=== PATIENT | male | born 1950 | race Caucasian/White ===

== ENCOUNTER 2018-04-14 08:15 | Outpatient (RCR) | payer MEDICARE, SELFPAY ==
--- NOTE | 2017-10-25 14:16 | PT.OIE ---
Current Diagnoses Disease of spinal cord, unspecified (10/25/17) Spinal stenosis, lumbar region with neurogenic claudication (10/25/17) Other biomechanical lesions of lumbar region (10/25/17) Unspecified abnormalities of gait and mobility (10/25/17) Provider Visit Care Team Role Provider Type La Keith MD Primary Care Provider Non-Staff Specialty: Physical Medicine and Rehab Address: [address] [place] [address] 8th [facility], [address], [place], [address] Email: Nemesio Carlisle MD Attending Provider Physician Specialty: Family Practice Address: [address] [place] [address], [address] Email: Physical Therapy Initial Evaluation PT-OP-A Visit Information Start: 10/25/17 07:27 Freq: Status: Active Protocol: Document 10/25/17 10:07 [facility] (Rec: 10/25/17 10:29 [facility] [id number]) Out-Patient Physical Therapy Visit Information Visit Information Visit Type Initial Evaluation Visit Note 1 visit Visit Start Time 09:07 Visit Stop Time 09:45 Total Visit Minutes 38 Visit Number 04/03 Number of BPM DEVELOPER Visits 0 PT-OP-B Current Condition Start: 10/25/17 07:27 Freq: Status: Active Protocol: Document 10/25/17 10:07 [facility] (Rec: 10/25/17 10:29 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 A ton of neurological tests were done on him until they found central canal stenosis in his neck. Pt had ACDF C4-7 and laminectomies of C5-7. This slowed the progress of the weakness of LEs & gait difficulties. Pt reports about a couple months ago, he started to have LBP with pain down post thighs and calves. Reports he started to have an inc in difficulty of walking. He has pain with standing and walking and pain is getting worse with decreasing time pt can spend up before pain starts. He sits down to relieve pain and does not allow pain to get over 5/10. It takes a little while of sitting to have pain relief. Reports no other treatment has been done and PT is first treatment approach. MD referal states that if PT increases pain, pt is to return to MD & stop PT. Prior Treatments and Tests Pt had MRI of cervical, thoracic & lumbar vertebra. Reports are in chart with evidence of central canal narrowing in cervical & lumbar region. Treatment Goals Patient/Caregiver Goals To be able to walk PT-OP-C Subjective Start: 10/25/17 07:27 Freq: Status: Active Protocol: Document 10/25/17 10:07 [facility] (Rec: 10/25/17 10:29 [facility] [id number]) Patient Questionnaires Oswestry Low Back Index Oswestry Score 26 Oswestry Impairment 20 to 39% Impaired (Score 20- 39) OP-PT Pain Assessment Location Bilateral Lower Posterior Back Pain Location Details LB down post thighs & calves Intensity 5 Scale Used Numeric (1 - 10) Frequency Intermittent Pain Aggravating Factors Activity Standing Walking Pain Alleviating Factors Sitting Rest PT-OP-F Manual Assessment Start: 10/25/17 07:27 Freq: Status: Active Protocol: Document 10/25/17 10:07 [facility] (Rec: 10/25/17 10:29 [facility] [id number]) Manual Assessments Soft Tissue Assessment Soft Tissue Mobility Assessment L>R QL tightness, B ES & HS tightness & R>L glute tightness Joint Mobility Assessment Joint Mobility Assessment With knee bend, pt has IR of R femur & ER of L with tibia neutral position and L ER. Pt has elevated R iliac crest with equal height greater trochanters. PT-OP-G Mobility & Gait Start: 10/25/17 07:27 Freq: Status: Active Protocol: Document 10/25/17 10:07 [facility] (Rec: 10/25/17 10:29 [facility] [id number]) OP Gait Assessment Comments Gait Comments Pt amb without AD with mild scissoring, knee hyperext and lateral leaning. Pt reports 1 fall in past year. PT-OP-K Range of Motion Start: 10/25/17 07:27 Freq: Status: Active Protocol: Document 10/25/17 10:07 [facility] (Rec: 10/25/17 10:29 [facility] [id number]) Lumbar Spine Range of Motion Lumbar Spine Active Degrees Testing Position standing Flexion 65 Extension 15 Lateral Flexion Left 25 Lateral Flexion Right 20 Comments tight with flex; about 75% L rotation & 60% R PT-OP-L Special Tests Start: 10/25/17 07:27 Freq: Status: Active Protocol: Document 10/25/17 10:07 [facility] (Rec: 10/25/17 10:29 [facility] [id number]) Special Tests Lumbar Spine Special Tests Straight Leg Raise Test Results neg B Slump Test Results postive R, Neg L PT-OP-M Strength Start: 10/25/17 07:27 Freq: Status: Active Protocol: Document 10/25/17 11:30 [facility] (Rec: 10/25/17 11:36 [facility] [id number]) Hip Strength Hip Manual Muscle Testing Right Flexion (L2) 4+ Good+ Extension (S1) 4 Good Abduction 4 Good External Rotation 4 Good Internal Rotation 4 Good Left Flexion (L2) 4+ Good+ Extension (S1) 4 Good Abduction 4 Good External Rotation 4 Good Internal Rotation 4 Good Knee Strength Knee Manual Muscle Testing Right Flexion (S2) 5 Normal Extension (L3) 5 Normal Left Flexion (S2) 5 Normal Extension (L3) 5 Normal Ankle/Foot Strength Ankle and Foot Manual Muscle Testing Right Dorsiflexion (L4) 4 Good Left Dorsiflexion (L4) 4 Good PT-OP-Q Treatments Start: 10/25/17 07:27 Freq: Status: Active Protocol: Document 10/25/17 10:07 [facility] (Rec: 10/25/17 10:29 [facility] [email or web address]) Therapeutic Exercises Supine Exercises 2 Supine Exercise Name bridging Side bilateral Reps/Minutes 10 1 Supine Exercise Name single leg abdominal series flex & diagonal Side bilateral Reps/Minutes 30 sec ea Sidelying Exercises 1 Sidelying Exercise Name abd Side bilateral Reps/Minutes 10 Self-Care/Home Management Treatment Activities Self-Care/Home Management Activities edu to try ice and if that does not help then try heat for pain relief PT-OP-T Assessment and Plan Start: 10/25/17 07:27 Freq: Status: Active Protocol: Document 10/25/17 10:07 [facility] (Rec: 10/25/17 11:36 [facility] [id number]) Physical Therapy Assessment Rehab Potential Rehabilitation Potential Good Evaluation Complexity Number of Personal Factors/Comorbidities 1-2 Number of Body Systems Impaired 4 or More Clinical Presentation at Evaluation Evolving Impairments Impairments Activity Tolerance Balance Coordination Functional Activities Functional Mobility Gait Pain Soft Tissue Mobility Strength Goals Three Impairment pain Wood Sash And Frame Carpenter Goal (LTG) Pt will report no more than 2/ 10 LBP during the day. LTG Duration 12/25/17 Two Impairment muscle tightness Wood Sash And Frame Carpenter Goal (LTG) Pt will have no tenderness to palpation in LB region LTG Duration 12/25/17 One Impairment Strength Short Term Goal (STG) Pt will be indep with HEP STG Duration 11/25/17 Prison Goal (LTG) Pt will have 5/5 MMT for BLEs to allow improvement in movement to allow greater time on feet before pain. LTG Duration 12/25/17 Assessment Summary Assessment Pt presents with significant gait deviations d/t cervical central canal stenosis. He has LBP d/t lumbar central canal stenosis, DDD, and facet OA. Physical Therapy Plan Frequency and Duration Frequency of Treatment 2x/Week Duration of Treatment 2 months Plan of Care Start Date 10/25/17 Plan of Care End Date 12/25/17 Therapeutic Interventions Therapeutic Interventions Aquatic Therapy Balance Training Gait Training Home Exercise Program Joint Mobilizations Manual Therapy Neuromuscular Re-education Soft Tissue Mobilization Taping Therapeutic Exercises Modalities Cold Pack/Ice Massage Electric Stimulation Hot Packs Ultrasound Next Visit Focus/Plan Next Note Type Treatment Note Next Visit Plan Advance core & LE strength: reverese clamshells, clamshells, squats, supine core
--- NOTE | 2017-10-25 14:16 | PT.OPPOC ---
Current Diagnoses Disease of spinal cord, unspecified (10/25/17) Spinal stenosis, lumbar region with neurogenic claudication (10/25/17) Other biomechanical lesions of lumbar region (10/25/17) Unspecified abnormalities of gait and mobility (10/25/17) Provider Visit Care Team Role Provider Type La Keith MD Primary Care Provider Non-Staff Specialty: Physical Medicine and Rehab Address: [address] [place] [address] 8th [facility], [address], [address] Email: Nemesio Carlisle MD Attending Provider Physician Specialty: Family Practice Address: [address] [place] [address], [id number] Email: Plan Of Care PT-OP-T Assessment and Plan Start: 10/25/17 07:27 Freq: Status: Active Protocol: Document 10/25/17 10:07 [facility] (Rec: 10/25/17 11:36 [facility] [id number]) Physical Therapy Assessment Rehab Potential Rehabilitation Potential Good Evaluation Complexity Number of Personal Factors/Comorbidities 1-2 Number of Body Systems Impaired 4 or More Clinical Presentation at Evaluation Evolving Impairments Impairments Activity Tolerance Balance Coordination Functional Activities Functional Mobility Gait Pain Soft Tissue Mobility Strength Goals Three Impairment pain Heatset Winder Operator Goal (LTG) Pt will report no more than 2/ 10 LBP during the day. LTG Duration 12/25/17 Two Impairment muscle tightness Skilled Nursing Goal (LTG) Pt will have no tenderness to palpation in LB region LTG Duration 12/25/17 One Impairment Strength Short Term Goal (STG) Pt will be indep with HEP STG Duration 11/25/17 Skilled Nursing Goal (LTG) Pt will have 5/5 MMT for BLEs to allow improvement in movement to allow greater time on feet before pain. LTG Duration 12/25/17 Assessment Summary Assessment Pt presents with significant gait deviations d/t cervical central canal stenosis. He has LBP d/t lumbar central canal stenosis, DDD, and facet OA. Physical Therapy Plan Frequency and Duration Frequency of Treatment 2x/Week Duration of Treatment 2 months Plan of Care Start Date 10/25/17 Plan of Care End Date 12/25/17 Therapeutic Interventions Therapeutic Interventions Aquatic Therapy Balance Training Gait Training Home Exercise Program Joint Mobilizations Manual Therapy Neuromuscular Re-education Soft Tissue Mobilization Taping Therapeutic Exercises Modalities Cold Pack/Ice Massage Electric Stimulation Hot Packs Ultrasound Next Visit Focus/Plan Next Note Type Treatment Note Next Visit Plan Advance core & LE strength: reverese clamshells, clamshells, squats, supine core Plan of Care Dates Plan of Care Start Date 10/25/17 Plan of Care End Date 12/25/17 Please Sign and Return: I have reviewed this Plan of Care and certify that the skilled therapy services above are required to meet the patient?s needs. Physician Signature Date Printed Name and Credentials Clinical Instructor Signature Printed Name and Credentials
--- NOTE | 2017-12-05 17:31 | PT.OTN ---
Current Diagnoses Disease of spinal cord, unspecified (12/05/17) Spinal stenosis, lumbar region with neurogenic claudication (12/05/17) Other biomechanical lesions of lumbar region (12/05/17) Unspecified abnormalities of gait and mobility (12/05/17) Physical Therapy Treatment Note PT-OP-A Visit Information Start: 10/25/17 07:27 Freq: Status: Active Protocol: Document 10/25/17 10:07 [facility] (Rec: 10/25/17 10:29 [facility] [id number]) Out-Patient Physical Therapy Visit Information Visit Information Visit Type Initial Evaluation Visit Note 1 visit Visit Start Time 09:07 Visit Stop Time 09:45 Total Visit Minutes 38 Visit Number 04/03 Number of OPERATING ROOM SCHEDULER Visits 0 PT-OP-B Current Condition Start: 10/25/17 07:27 Freq: Status: Active Protocol: Document 12/05/17 11:21 [facility] (Rec: 12/05/17 17:31 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 A ton of neurological tests were done on him until they found central canal stenosis in his neck. Pt had ACDF C4-7 and laminectomies of C5-7. This slowed the progress of the weakness of LEs & gait difficulties. Pt reports about a couple months ago, he started to have LBP with pain down post thighs and calves. Reports he started to have an inc in difficulty of walking. He has pain with standing and walking and pain is getting worse with decreasing time pt can spend up before pain starts. He sits down to relieve pain and does not allow pain to get over 5/10. It takes a little while of sitting to have pain relief. Reports no other treatment has been done and PT is first treatment approach. MD referal states that if PT increases pain, pt is to return to MD & stop PT. UPDATE* -pt had L4-5 lami 11/04 and was cleared to start PT. Thinks he may have dec foot drop since surgery and back pain has improved but feels tight still. No lifting >10 lbs, limit twisting and bending Prior Treatments and Tests Pt had MRI of cervical, thoracic & lumbar vertebra. Reports are in chart with evidence of central canal narrowing in cervical & lumbar region. PT-OP-C Subjective Start: 10/25/17 07:27 Freq: Status: Active Protocol: Document 10/25/17 10:07 [facility] (Rec: 10/25/17 10:29 [facility] [id number]) Patient Questionnaires Oswestry Low Back Index Oswestry Score 26 Oswestry Impairment 20 to 39% Impaired (Score 20- 39) OP-PT Pain Assessment Location Bilateral Lower Posterior Back Pain Location Details LB down post thighs & calves Intensity 5 Scale Used Numeric (1 - 10) Frequency Intermittent Pain Aggravating Factors Activity Standing Walking Pain Alleviating Factors Sitting Rest PT-OP-F Manual Assessment Start: 10/25/17 07:27 Freq: Status: Active Protocol: Document 10/25/17 10:07 [facility] (Rec: 10/25/17 10:29 [facility] [id number]) Manual Assessments Soft Tissue Assessment Soft Tissue Mobility Assessment L>R QL tightness, B ES & HS tightness & R>L glute tightness Joint Mobility Assessment Joint Mobility Assessment With knee bend, pt has IR of R femur & ER of L with tibia neutral position and L ER. Pt has elevated R iliac crest with equal height greater trochanters. PT-OP-G Mobility & Gait Start: 10/25/17 07:27 Freq: Status: Active Protocol: Document 10/25/17 10:07 [facility] (Rec: 10/25/17 10:29 [facility] [id number]) OP Gait Assessment Comments Gait Comments Pt amb without AD with mild scissoring, knee hyperext and lateral leaning. Pt reports 1 fall in past year. PT-OP-K Range of Motion Start: 10/25/17 07:27 Freq: Status: Active Protocol: Document 10/25/17 10:07 [facility] (Rec: 10/25/17 10:29 [facility] [id number]) Lumbar Spine Range of Motion Lumbar Spine Active Degrees Testing Position standing Flexion 65 Extension 15 Lateral Flexion Left 25 Lateral Flexion Right 20 Comments tight with flex; about 75% L rotation & 60% R PT-OP-L Special Tests Start: 10/25/17 07:27 Freq: Status: Active Protocol: Document 10/25/17 10:07 [facility] (Rec: 10/25/17 10:29 [facility] [id number]) Special Tests Lumbar Spine Special Tests Straight Leg Raise Test Results neg B Slump Test Results postive R, Neg L PT-OP-M Strength Start: 10/25/17 07:27 Freq: Status: Active Protocol: Document 10/25/17 11:30 [facility] (Rec: 10/25/17 11:36 [facility] [id number]) Hip Strength Hip Manual Muscle Testing Right Flexion (L2) 4+ Good+ Extension (S1) 4 Good Abduction 4 Good External Rotation 4 Good Internal Rotation 4 Good Left Flexion (L2) 4+ Good+ Extension (S1) 4 Good Abduction 4 Good External Rotation 4 Good Internal Rotation 4 Good Knee Strength Knee Manual Muscle Testing Right Flexion (S2) 5 Normal Extension (L3) 5 Normal Left Flexion (S2) 5 Normal Extension (L3) 5 Normal Ankle/Foot Strength Ankle and Foot Manual Muscle Testing Right Dorsiflexion (L4) 4 Good Left Dorsiflexion (L4) 4 Good PT-OP-Q Treatments Start: 10/25/17 07:27 Freq: Status: Active Protocol: Document 12/05/17 11:21 [facility] (Rec: 12/05/17 12:05 [facility] [id number]) Therapeutic Exercises Supine Exercises 3 Supine Exercise Name marching to scissors Reps/Minutes 20 2 Supine Exercise Name bridging Side bilateral Reps/Minutes 10 Comments arms in air 1 Supine Exercise Name single leg abdominal series flex & diagonal Side bilateral Reps/Minutes 30 sec ea Sidelying Exercises 3 Sidelying Exercise Name reverse clamshells Equipment Used L1 Reps/Minutes 15 2 Sidelying Exercise Name clamshells Resistance L1 Reps/Minutes 15 1 Sidelying Exercise Name abd Side bilateral Reps/Minutes 10 Manual Therapy Treatment Soft Tissue Mobilization 1 Body Location lumbar region Mobilization Type Myofascial Release Intensity/Depth Superficial Body Position Prone PT-OP-R Modalities Start: 10/25/17 07:27 Freq: Status: Active Protocol: Document 12/05/17 11:21 [facility] (Rec: 12/05/17 17:28 [facility] [id number]) Hot Pack/Cold Pack Treatment Cold Pack Location lumbar Patient Position Prone Treatment Duration (minutes) 10 PT-OP-T Assessment and Plan Start: 10/25/17 07:27 Freq: Status: Active Protocol: Document 12/05/17 11:21 [facility] (Rec: 12/05/17 12:05 [facility] [id number]) Physical Therapy Assessment Impairments Impairments Activity Tolerance Balance Coordination Functional Activities Functional Mobility Gait Pain Soft Tissue Mobility Strength Goals Three Impairment pain Fdc Goal (LTG) Pt will report no more than 2/ 10 LBP during the day. LTG Duration 01/25/18 Two Impairment muscle tightness Distilling Department Supervisor Goal (LTG) Pt will have no tenderness to palpation in LB region LTG Duration 01/25/18 One Impairment Strength Short Term Goal (STG) Pt will be indep with HEP STG Duration 12/25/17 Fdc Goal (LTG) Pt will have 5/5 MMT for BLEs to allow improvement in movement to allow greater time on feet before pain. LTG Duration 01/25/18 Assessment Summary Assessment Pt is 1 month s/p laminectomy and has MD clearance to resume PT. Min cueing required for prior exercises. Good healing of scar with MF tigthenss in LB. Physical Therapy Plan Frequency and Duration Frequency of Treatment 2x/Week Duration of Treatment 2 months Plan of Care Start Date 10/25/17 Plan of Care End Date 12/25/17 Therapeutic Interventions Therapeutic Interventions Aquatic Therapy Balance Training Gait Training Home Exercise Program Joint Mobilizations Manual Therapy Neuromuscular Re-education Soft Tissue Mobilization Taping Therapeutic Exercises Modalities Cold Pack/Ice Massage Electric Stimulation Hot Packs Ultrasound Next Visit Focus/Plan Next Note Type Treatment Note Next Visit Plan seated on tball exercises
--- NOTE | 2017-12-05 17:32 | PT.OPPOC ---
Current Diagnoses Disease of spinal cord, unspecified (12/05/17) Spinal stenosis, lumbar region with neurogenic claudication (12/05/17) Other biomechanical lesions of lumbar region (12/05/17) Unspecified abnormalities of gait and mobility (12/05/17) Provider Visit Care Team Role Provider Type La Keith MD Primary Care Provider Non-Staff Specialty: Physical Medicine and Rehab Address: [address] [place] [address] [address] [facility], [address], [place], [address] Email: Nemesio Carlisle MD Attending Provider Physician Specialty: Family Practice Address: [address] [place] [address], [address] Email: Plan Of Care PT-OP-T Assessment and Plan Start: 10/25/17 07:27 Freq: Status: Active Protocol: Document 12/05/17 11:21 [facility] (Rec: 12/05/17 12:05 [facility] [id number]) Physical Therapy Assessment Impairments Impairments Activity Tolerance Balance Coordination Functional Activities Functional Mobility Gait Pain Soft Tissue Mobility Strength Goals Three Impairment pain Halfway Goal (LTG) Pt will report no more than 2/ 10 LBP during the day. LTG Duration 01/25/18 Two Impairment muscle tightness Psychometrist Goal (LTG) Pt will have no tenderness to palpation in LB region LTG Duration 01/25/18 One Impairment Strength Short Term Goal (STG) Pt will be indep with HEP STG Duration 12/25/17 Halfway Goal (LTG) Pt will have 5/5 MMT for BLEs to allow improvement in movement to allow greater time on feet before pain. LTG Duration 01/25/18 Assessment Summary Assessment Pt is 1 month s/p laminectomy and has MD clearance to resume PT. Min cueing required for prior exercises. Good healing of scar with MF tigthenss in LB. Physical Therapy Plan Frequency and Duration Frequency of Treatment 2x/Week Duration of Treatment 2 months Plan of Care Start Date 10/25/17 Plan of Care End Date 12/25/17 Therapeutic Interventions Therapeutic Interventions Aquatic Therapy Balance Training Gait Training Home Exercise Program Joint Mobilizations Manual Therapy Neuromuscular Re-education Soft Tissue Mobilization Taping Therapeutic Exercises Modalities Cold Pack/Ice Massage Electric Stimulation Hot Packs Ultrasound Next Visit Focus/Plan Next Note Type Treatment Note Next Visit Plan seated on tball exercises Plan of Care Dates Plan of Care Start Date 10/25/17 Plan of Care End Date 12/25/17 Please Sign and Return: I have reviewed this Plan of Care and certify that the skilled therapy services above are required to meet the patient?s needs. Physician Signature Date Printed Name and Credentials Clinical Instructor Signature Printed Name and Credentials
--- NOTE | 2017-12-10 10:28 | PT.OTN ---
Current Diagnoses Disease of spinal cord, unspecified (12/10/17) Spinal stenosis, lumbar region with neurogenic claudication (12/10/17) Other biomechanical lesions of lumbar region (12/10/17) Unspecified abnormalities of gait and mobility (12/10/17) Physical Therapy Treatment Note PT-OP-A Visit Information Start: 10/25/17 07:27 Freq: Status: Active Protocol: Document 12/10/17 09:46 [facility] (Rec: 12/10/17 10:27 [facility] [id number]) Out-Patient Physical Therapy Visit Information Visit Information Visit Type Treatment Note Visit Note 3 visits Visit Start Time 09:45 Visit Stop Time 10:40 Total Visit Minutes 55 Visit Number 2/10 Number of OUTREACH SPECIALIST Visits 0 PT-OP-B Current Condition Start: 10/25/17 07:27 Freq: Status: Active Protocol: Document 12/05/17 11:21 [facility] (Rec: 12/05/17 17:31 [facility] [id number]) Current Condition History of Current Condition Onset Date couple months ago Current Complaints LBP w/radicular pain into post LEs History of Current Condition 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 A ton of neurological tests were done on him until they found central canal stenosis in his neck. Pt had ACDF C4-7 and laminectomies of C5-7. This slowed the progress of the weakness of LEs & gait difficulties. Pt reports about a couple months ago, he started to have LBP with pain down post thighs and calves. Reports he started to have an inc in difficulty of walking. He has pain with standing and walking and pain is getting worse with decreasing time pt can spend up before pain starts. He sits down to relieve pain and does not allow pain to get over 5/10. It takes a little while of sitting to have pain relief. Reports no other treatment has been done and PT is first treatment approach. MD referal states that if PT increases pain, pt is to return to MD & stop PT. UPDATE* -pt had L4-5 lami 11/04 and was cleared to start PT. Thinks he may have dec foot drop since surgery and back pain has improved but feels tight still. No lifting >10 lbs, limit twisting and bending Prior Treatments and Tests Pt had MRI of cervical, thoracic & lumbar vertebra. Reports are in chart with evidence of central canal narrowing in cervical & lumbar region. PT-OP-C Subjective Start: 10/25/17 07:27 Freq: Status: Active Protocol: Document 12/10/17 09:46 [facility] (Rec: 12/10/17 10:26 [facility] [id number]) OP-PT Subjective Patient Comments Patient Comments Pt reports no back soreness after last session, just some leg soreness. PT-OP-F Manual Assessment Start: 10/25/17 07:27 Freq: Status: Active Protocol: Document 10/25/17 10:07 [facility] (Rec: 10/25/17 10:29 [facility] [id number]) Manual Assessments Soft Tissue Assessment Soft Tissue Mobility Assessment L>R QL tightness, B ES & HS tightness & R>L glute tightness Joint Mobility Assessment Joint Mobility Assessment With knee bend, pt has IR of R femur & ER of L with tibia neutral position and L ER. Pt has elevated R iliac crest with equal height greater trochanters. PT-OP-G Mobility & Gait Start: 10/25/17 07:27 Freq: Status: Active Protocol: Document 10/25/17 10:07 [facility] (Rec: 10/25/17 10:29 [facility] [id number]) OP Gait Assessment Comments Gait Comments Pt amb without AD with mild scissoring, knee hyperext and lateral leaning. Pt reports 1 fall in past year. PT-OP-K Range of Motion Start: 10/25/17 07:27 Freq: Status: Active Protocol: Document 10/25/17 10:07 [facility] (Rec: 10/25/17 10:29 [facility] [id number]) Lumbar Spine Range of Motion Lumbar Spine Active Degrees Testing Position standing Flexion 65 Extension 15 Lateral Flexion Left 25 Lateral Flexion Right 20 Comments tight with flex; about 75% L rotation & 60% R PT-OP-L Special Tests Start: 10/25/17 07:27 Freq: Status: Active Protocol: Document 10/25/17 10:07 [facility] (Rec: 10/25/17 10:29 [facility] [id number]) Special Tests Lumbar Spine Special Tests Straight Leg Raise Test Results neg B Slump Test Results postive R, Neg L PT-OP-M Strength Start: 10/25/17 07:27 Freq: Status: Active Protocol: Document 10/25/17 11:30 [facility] (Rec: 10/25/17 11:36 [facility] [email or web address]) Hip Strength Hip Manual Muscle Testing Right Flexion (L2) 4+ Good+ Extension (S1) 4 Good Abduction 4 Good External Rotation 4 Good Internal Rotation 4 Good Left Flexion (L2) 4+ Good+ Extension (S1) 4 Good Abduction 4 Good External Rotation 4 Good Internal Rotation 4 Good Knee Strength Knee Manual Muscle Testing Right Flexion (S2) 5 Normal Extension (L3) 5 Normal Left Flexion (S2) 5 Normal Extension (L3) 5 Normal Ankle/Foot Strength Ankle and Foot Manual Muscle Testing Right Dorsiflexion (L4) 4 Good Left Dorsiflexion (L4) 4 Good PT-OP-Q Treatments Start: 10/25/17 07:27 Freq: Status: Active Protocol: Document 12/10/17 09:46 [facility] (Rec: 12/10/17 10:26 [facility] [id number]) Gym Equipment Shuttle Recovery Bilateral Squats Details avoiding hyperext Resistance 100 Shuttle Recovery Platform Unstable Reps/Time 30 Shuttle Balance 1 Details red clips Reps/Duration fwd: WBOS, NBOS, & staggered stance; side: WBOS & NBOS Therapeutic Ball 3 Exercise Details wall squats Ball Size/Color 55 cm Reps/Duration 20 2 Exercise Details knee ext Ball Size/Color 65 cm Body Position Sitting Reps/Duration 20 1 Exercise Details marching Ball Size/Color 65 cm Body Position Sitting Reps/Duration 20 Manual Therapy Treatment Soft Tissue Mobilization 2 Body Location scar Mobilization Type Rolling Intensity/Depth Superficial 1 Body Location lumbar paraspinals & QL Mobilization Type Myofascial Release Rolling Intensity/Depth Superficial Body Position Prone PT-OP-R Modalities Start: 10/25/17 07:27 Freq: Status: Active Protocol: Document 12/10/17 09:46 [facility] (Rec: 12/10/17 10:26 [facility] [id number]) Hot Pack/Cold Pack Treatment Cold Pack Location lumbar Patient Position Prone Treatment Duration (minutes) 10 PT-OP-T Assessment and Plan Start: 10/25/17 07:27 Freq: Status: Active Protocol: Document 12/10/17 09:46 [facility] (Rec: 12/10/17 10:26 [facility] [id number]) Physical Therapy Assessment Goals Three Impairment pain Physical Anthropologist Goal (LTG) Pt will report no more than 2/ 10 LBP during the day. LTG Duration 01/25/18 Two Impairment muscle tightness Care Home Goal (LTG) Pt will have no tenderness to palpation in LB region LTG Duration 01/25/18 One Impairment Strength Short Term Goal (STG) Pt will be indep with HEP STG Duration 12/25/17 Care Home Goal (LTG) Pt will have 5/5 MMT for BLEs to allow improvement in movement to allow greater time on feet before pain. LTG Duration 01/25/18 Assessment Summary Assessment Pt had difficulty with seated on ball core exercises. He would benefit from cont progression of core stability exercises. Able to stabilize with balance exercise. Physical Therapy Plan Frequency and Duration Frequency of Treatment 2x/Week Duration of Treatment 2 months Plan of Care Start Date 10/25/17 Plan of Care End Date 12/25/17 Next Visit Focus/Plan Next Note Type Treatment Note Next Visit Plan Advance core
--- NOTE | 2017-12-12 08:56 | PT.OTN ---
Current Diagnoses Disease of spinal cord, unspecified (12/12/17) Spinal stenosis, lumbar region with neurogenic claudication (12/12/17) Other biomechanical lesions of lumbar region (12/12/17) Unspecified abnormalities of gait and mobility (12/12/17) Physical Therapy Treatment Note PT-OP-A Visit Information Start: 10/25/17 07:27 Freq: Status: Active Protocol: Document 12/12/17 08:14 [facility] (Rec: 12/12/17 08:56 [facility] [id number]) Out-Patient Physical Therapy Visit Information Visit Information Visit Type Treatment Note Visit Note 4 visits Visit Start Time 08:15 Visit Stop Time 09:05 Total Visit Minutes 50 Visit Number 3/10 Number of GLASS ETCHER HELPER Visits 0 PT-OP-B Current Condition Start: 10/25/17 07:27 Freq: Status: Active Protocol: Document 12/05/17 11:21 [facility] (Rec: 12/05/17 17:31 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 A ton of neurological tests were done on him until they found central canal stenosis in his neck. Pt had ACDF C4-7 and laminectomies of C5-7. This slowed the progress of the weakness of LEs & gait difficulties. Pt reports about a couple months ago, he started to have LBP with pain down post thighs and calves. Reports he started to have an inc in difficulty of walking. He has pain with standing and walking and pain is getting worse with decreasing time pt can spend up before pain starts. He sits down to relieve pain and does not allow pain to get over 5/10. It takes a little while of sitting to have pain relief. Reports no other treatment has been done and PT is first treatment approach. MD referal states that if PT increases pain, pt is to return to MD & stop PT. UPDATE* -pt had L4-5 lami 11/04 and was cleared to start PT. Thinks he may have dec foot drop since surgery and back pain has improved but feels tight still. No lifting >10 lbs, limit twisting and bending Prior Treatments and Tests Pt had MRI of cervical, thoracic & lumbar vertebra. Reports are in chart with evidence of central canal narrowing in cervical & lumbar region. PT-OP-C Subjective Start: 10/25/17 07:27 Freq: Status: Active Protocol: Document 12/12/17 08:14 [facility] (Rec: 12/12/17 08:56 [facility] [id number]) OP-PT Subjective Patient Comments Patient Comments Reports exercises going well at home. PT-OP-F Manual Assessment Start: 10/25/17 07:27 Freq: Status: Active Protocol: Document 10/25/17 10:07 [facility] (Rec: 10/25/17 10:29 [facility] [id number]) Manual Assessments Soft Tissue Assessment Soft Tissue Mobility Assessment L>R QL tightness, B ES & HS tightness & R>L glute tightness Joint Mobility Assessment Joint Mobility Assessment With knee bend, pt has IR of R femur & ER of L with tibia neutral position and L ER. Pt has elevated R iliac crest with equal height greater trochanters. PT-OP-G Mobility & Gait Start: 10/25/17 07:27 Freq: Status: Active Protocol: Document 10/25/17 10:07 [facility] (Rec: 10/25/17 10:29 [facility] [id number]) OP Gait Assessment Comments Gait Comments Pt amb without AD with mild scissoring, knee hyperext and lateral leaning. Pt reports 1 fall in past year. PT-OP-K Range of Motion Start: 10/25/17 07:27 Freq: Status: Active Protocol: Document 10/25/17 10:07 [facility] (Rec: 10/25/17 10:29 [facility] [id number]) Lumbar Spine Range of Motion Lumbar Spine Active Degrees Testing Position standing Flexion 65 Extension 15 Lateral Flexion Left 25 Lateral Flexion Right 20 Comments tight with flex; about 75% L rotation & 60% R PT-OP-L Special Tests Start: 10/25/17 07:27 Freq: Status: Active Protocol: Document 10/25/17 10:07 [facility] (Rec: 10/25/17 10:29 [facility] [id number]) Special Tests Lumbar Spine Special Tests Straight Leg Raise Test Results neg B Slump Test Results postive R, Neg L PT-OP-M Strength Start: 10/25/17 07:27 Freq: Status: Active Protocol: Document 10/25/17 11:30 [facility] (Rec: 10/25/17 11:36 [facility] [id number]) Hip Strength Hip Manual Muscle Testing Right Flexion (L2) 4+ Good+ Extension (S1) 4 Good Abduction 4 Good External Rotation 4 Good Internal Rotation 4 Good Left Flexion (L2) 4+ Good+ Extension (S1) 4 Good Abduction 4 Good External Rotation 4 Good Internal Rotation 4 Good Knee Strength Knee Manual Muscle Testing Right Flexion (S2) 5 Normal Extension (L3) 5 Normal Left Flexion (S2) 5 Normal Extension (L3) 5 Normal Ankle/Foot Strength Ankle and Foot Manual Muscle Testing Right Dorsiflexion (L4) 4 Good Left Dorsiflexion (L4) 4 Good PT-OP-Q Treatments Start: 10/25/17 07:27 Freq: Status: Active Protocol: Document 12/12/17 08:14 [facility] (Rec: 12/12/17 08:56 [facility] [id number]) Gym Equipment Shuttle Recovery Bilateral Squats Details avoiding hyperext Resistance 125 Shuttle Recovery Platform Stable Reps/Time 30 Shuttle Balance 1 Details red clips Reps/Duration fwd: WBOS, NBOS, & staggered stance; side: WBOS & NBOS Comments w/head turns Therapeutic Ball 3 Exercise Details wall squats Ball Size/Color 55 cm Reps/Duration 20 2 Exercise Details knee ext Ball Size/Color 65 cm Body Position Sitting Reps/Duration 20 1 Exercise Details marching progressed to alt opp march/shoulder flex Ball Size/Color 65 cm Body Position Sitting Reps/Duration 20 Manual Therapy Treatment Soft Tissue Mobilization 2 Body Location scar Mobilization Type Rolling Intensity/Depth Superficial 1 Body Location lumbar paraspinals & QL Mobilization Type Myofascial Release Rolling Intensity/Depth Superficial Body Position Prone Neuro Re-Education Treatment Balance Activities 2 Details tandem walk Comments with focus on no knee hyper ext 1 Details SLS Comments focus on no knee hyperext PT-OP-R Modalities Start: 10/25/17 07:27 Freq: Status: Active Protocol: Document 12/12/17 08:14 [facility] (Rec: 12/12/17 08:56 [facility] [id number]) Hot Pack/Cold Pack Treatment Cold Pack Location lumbar Patient Position Prone Treatment Duration (minutes) 10 PT-OP-T Assessment and Plan Start: 10/25/17 07:27 Freq: Status: Active Protocol: Document 12/12/17 08:14 [facility] (Rec: 12/12/17 08:56 [facility] [id number]) Physical Therapy Assessment Goals Three Impairment pain Penitentiary Goal (LTG) Pt will report no more than 2/ 10 LBP during the day. LTG Duration 01/25/18 Two Impairment muscle tightness Penitentiary Goal (LTG) Pt will have no tenderness to palpation in LB region LTG Duration 01/25/18 One Impairment Strength Short Term Goal (STG) Pt will be indep with HEP STG Duration 12/25/17 Penitentiary Goal (LTG) Pt will have 5/5 MMT for BLEs to allow improvement in movement to allow greater time on feet before pain. LTG Duration 01/25/18 Assessment Summary Assessment Improved stability on ball today. Pt has more control with RLE>LLE in prevention of genu recurvatum. Improving scar mobility. Physical Therapy Plan Frequency and Duration Frequency of Treatment 2x/Week Duration of Treatment 2 months Plan of Care Start Date 10/25/17 Plan of Care End Date 12/25/17 Next Visit Focus/Plan Next Note Type Treatment Note Next Visit Plan Cont to progress core and dynamic balance; start with elliptical, TKE
--- NOTE | 2017-12-17 09:00 | PT.OTN ---
Current Diagnoses Disease of spinal cord, unspecified (12/17/17) Spinal stenosis, lumbar region with neurogenic claudication (12/17/17) Other biomechanical lesions of lumbar region (12/17/17) Unspecified abnormalities of gait and mobility (12/17/17) Physical Therapy Treatment Note PT-OP-A Visit Information Start: 10/25/17 07:27 Freq: Status: Active Protocol: Document 12/17/17 08:14 [facility] (Rec: 12/17/17 09:00 [facility] [id number]) Out-Patient Physical Therapy Visit Information Visit Information Visit Type Treatment Note Visit Note 5 visits Visit Start Time 08:15 Visit Stop Time 09:05 Total Visit Minutes 50 Visit Number 4/10 Number of LOGISTICS SYSTEM ENGINEER Visits 0 PT-OP-B Current Condition Start: 10/25/17 07:27 Freq: Status: Active Protocol: Document 12/05/17 11:21 [facility] (Rec: 12/05/17 17:31 [facility] [id number]) Current Condition History of Current Condition Onset Date couple months ago Current Complaints LBP w/radicular pain into post LEs History of Current Condition 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 A ton of neurological tests were done on him until they found central canal stenosis in his neck. Pt had ACDF C4-7 and laminectomies of C5-7. This slowed the progress of the weakness of LEs & gait difficulties. Pt reports about a couple months ago, he started to have LBP with pain down post thighs and calves. Reports he started to have an inc in difficulty of walking. He has pain with standing and walking and pain is getting worse with decreasing time pt can spend up before pain starts. He sits down to relieve pain and does not allow pain to get over 5/10. It takes a little while of sitting to have pain relief. Reports no other treatment has been done and PT is first treatment approach. MD referal states that if PT increases pain, pt is to return to MD & stop PT. UPDATE* -pt had L4-5 lami 11/04 and was cleared to start PT. Thinks he may have dec foot drop since surgery and back pain has improved but feels tight still. No lifting >10 lbs, limit twisting and bending Prior Treatments and Tests Pt had MRI of cervical, thoracic & lumbar vertebra. Reports are in chart with evidence of central canal narrowing in cervical & lumbar region. PT-OP-C Subjective Start: 10/25/17 07:27 Freq: Status: Active Protocol: Document 12/17/17 08:14 [facility] (Rec: 12/17/17 09:00 [facility] [id number]) OP-PT Subjective Patient Comments Patient Comments PA cleared pt for all activities yesterday. PT-OP-F Manual Assessment Start: 10/25/17 07:27 Freq: Status: Active Protocol: Document 10/25/17 10:07 [facility] (Rec: 10/25/17 10:29 [facility] [id number]) Manual Assessments Soft Tissue Assessment Soft Tissue Mobility Assessment L>R QL tightness, B ES & HS tightness & R>L glute tightness Joint Mobility Assessment Joint Mobility Assessment With knee bend, pt has IR of R femur & ER of L with tibia neutral position and L ER. Pt has elevated R iliac crest with equal height greater trochanters. PT-OP-G Mobility & Gait Start: 10/25/17 07:27 Freq: Status: Active Protocol: Document 10/25/17 10:07 [facility] (Rec: 10/25/17 10:29 [facility] [id number]) OP Gait Assessment Comments Gait Comments Pt amb without AD with mild scissoring, knee hyperext and lateral leaning. Pt reports 1 fall in past year. PT-OP-K Range of Motion Start: 10/25/17 07:27 Freq: Status: Active Protocol: Document 10/25/17 10:07 [facility] (Rec: 10/25/17 10:29 [facility] [id number]) Lumbar Spine Range of Motion Lumbar Spine Active Degrees Testing Position standing Flexion 65 Extension 15 Lateral Flexion Left 25 Lateral Flexion Right 20 Comments tight with flex; about 75% L rotation & 60% R PT-OP-L Special Tests Start: 10/25/17 07:27 Freq: Status: Active Protocol: Document 10/25/17 10:07 [facility] (Rec: 10/25/17 10:29 [facility] [id number]) Special Tests Lumbar Spine Special Tests Straight Leg Raise Test Results neg B Slump Test Results postive R, Neg L PT-OP-M Strength Start: 10/25/17 07:27 Freq: Status: Active Protocol: Document 10/25/17 11:30 [facility] (Rec: 10/25/17 11:36 [facility] [id number]) Hip Strength Hip Manual Muscle Testing Right Flexion (L2) 4+ Good+ Extension (S1) 4 Good Abduction 4 Good External Rotation 4 Good Internal Rotation 4 Good Left Flexion (L2) 4+ Good+ Extension (S1) 4 Good Abduction 4 Good External Rotation 4 Good Internal Rotation 4 Good Knee Strength Knee Manual Muscle Testing Right Flexion (S2) 5 Normal Extension (L3) 5 Normal Left Flexion (S2) 5 Normal Extension (L3) 5 Normal Ankle/Foot Strength Ankle and Foot Manual Muscle Testing Right Dorsiflexion (L4) 4 Good Left Dorsiflexion (L4) 4 Good PT-OP-Q Treatments Start: 10/25/17 07:27 Freq: Status: Active Protocol: Document 12/17/17 08:14 [facility] (Rec: 12/17/17 09:00 [facility] [id number]) Gym Equipment Shuttle Balance 1 Details red clips Reps/Duration fwd: WBOS, NBOS, & staggered stance; side: WBOS & NBOS Comments w/halloon toss Therapeutic Ball 4 Exercise Details pelvic circles Ball Size/Color 65cm 3 Exercise Details wall squats Ball Size/Color 55 cm Reps/Duration 20 2 Exercise Details knee ext Ball Size/Color 65 cm Body Position Sitting Reps/Duration 20 1 Exercise Details marching Ball Size/Color 65 cm Body Position Sitting Reps/Duration 20 Therapeutic Exercises Standing Exercises 1 Standing Exercise Name TKE Resistance L3 Reps/Minutes 15 Other Exercises 1 Other Exercise Name cat/camel Manual Therapy Treatment Soft Tissue Mobilization 2 Body Location scar Mobilization Type Rolling Intensity/Depth Moderate 1 Body Location lumbar paraspinals & QL Mobilization Type Myofascial Release Rolling Intensity/Depth Superficial Body Position Prone Comments and in cat/camel PT-OP-R Modalities Start: 10/25/17 07:27 Freq: Status: Active Protocol: Document 12/17/17 08:14 [facility] (Rec: 12/17/17 09:00 [facility] [id number]) Hot Pack/Cold Pack Treatment Cold Pack Location lumbar Patient Position Prone Treatment Duration (minutes) 10 PT-OP-T Assessment and Plan Start: 10/25/17 07:27 Freq: Status: Active Protocol: Document 12/17/17 08:14 [facility] (Rec: 12/17/17 09:00 [facility] [id number]) Physical Therapy Assessment Goals Three Impairment pain Prison Goal (LTG) Pt will report no more than 2/ 10 LBP during the day. LTG Duration 01/25/18 Two Impairment muscle tightness Coke Oven Patcher Goal (LTG) Pt will have no tenderness to palpation in LB region LTG Duration 01/25/18 One Impairment Strength Short Term Goal (STG) Pt will be indep with HEP STG Duration 12/25/17 [employer] O[employer] Patcher Goal (LTG) Pt will have 5/5 MMT for BLEs to allow improvement in movement to allow greater time on feet before pain. LTG Duration 01/25/18 Assessment Summary Assessment Dec stability on ball today as compared to last session. Pt required cueing throughout session re: posture. Physical Therapy Plan Frequency and Duration Frequency of Treatment 2x/Week Duration of Treatment 2 months Plan of Care Start Date 10/25/17 Plan of Care End Date 12/25/17 Next Visit Focus/Plan Next Note Type Treatment Note Next Visit Plan Cont to progress core and dynamic balance; start with elliptical
--- NOTE | 2017-12-19 16:43 | PT.OTN ---
Current Diagnoses Disease of spinal cord, unspecified (12/19/17) Spinal stenosis, lumbar region with neurogenic claudication (12/19/17) Other biomechanical lesions of lumbar region (12/19/17) Unspecified abnormalities of gait and mobility (12/19/17) Physical Therapy Treatment Note PT-OP-A Visit Information Start: 10/25/17 07:27 Freq: Status: Active Protocol: Document 12/19/17 16:13 ML (Rec: 12/19/17 16:43 ML [email or web address]) Out-Patient Physical Therapy Visit Information Visit Information Visit Type Treatment Note Visit Note 6 visits Visit Start Time 11:15 Visit Stop Time 12:00 Total Visit Minutes 45 Visit Number 5/ Number of DRYING MACHINE TENDER Visits 0 PT-OP-B Current Condition Start: 10/25/17 07:27 Freq: Status: Active Protocol: Document 12/05/17 11:21 [facility] (Rec: 12/05/17 17:31 [facility] [email or web address]) Current Condition History of Current Condition Onset Date couple months ago Current Complaints LBP w/radicular pain into post LEs History of Current Condition 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 A ton of neurological tests were done on him until they found central canal stenosis in his neck. Pt had ACDF C4-7 and laminectomies of C5-7. This slowed the progress of the weakness of LEs & gait difficulties. Pt reports about a couple months ago, he started to have LBP with pain down post thighs and calves. Reports he started to have an inc in difficulty of walking. He has pain with standing and walking and pain is getting worse with decreasing time pt can spend up before pain starts. He sits down to relieve pain and does not allow pain to get over 5/10. It takes a little while of sitting to have pain relief. Reports no other treatment has been done and PT is first treatment approach. MD referal states that if PT increases pain, pt is to return to MD & stop PT. UPDATE* -pt had L4-5 lami 11/04 and was cleared to start PT. Thinks he may have dec foot drop since surgery and back pain has improved but feels tight still. No lifting >10 lbs, limit twisting and bending Prior Treatments and Tests Pt had MRI of cervical, thoracic & lumbar vertebra. Reports are in chart with evidence of central canal narrowing in cervical & lumbar region. PT-OP-C Subjective Start: 10/25/17 07:27 Freq: Status: Active Protocol: Document 12/19/17 16:13 ML (Rec: 12/19/17 16:43 ML [email or web address]) OP-PT Subjective Patient Comments Patient Comments Reports that added home exercises were going well. No pain reported. PT-OP-F Manual Assessment Start: 10/25/17 07:27 Freq: Status: Active Protocol: Document 10/25/17 10:07 [facility] (Rec: 10/25/17 10:29 [facility] [email or web address]) Manual Assessments Soft Tissue Assessment Soft Tissue Mobility Assessment L>R QL tightness, B ES & HS tightness & R>L glute tightness Joint Mobility Assessment Joint Mobility Assessment With knee bend, pt has IR of R femur & ER of L with tibia neutral position and L ER. Pt has elevated R iliac crest with equal height greater trochanters. PT-OP-G Mobility & Gait Start: 10/25/17 07:27 Freq: Status: Active Protocol: Document 10/25/17 10:07 [facility] (Rec: 10/25/17 10:29 [facility] [email or web address]) OP Gait Assessment Comments Gait Comments Pt amb without AD with mild scissoring, knee hyperext and lateral leaning. Pt reports 1 fall in past year. PT-OP-K Range of Motion Start: 10/25/17 07:27 Freq: Status: Active Protocol: Document 10/25/17 10:07 [facility] (Rec: 10/25/17 10:29 [facility] [email or web address]) Lumbar Spine Range of Motion Lumbar Spine Active Degrees Testing Position standing Flexion 65 Extension 15 Lateral Flexion Left 25 Lateral Flexion Right 20 Comments tight with flex; about 75% L rotation & 60% R PT-OP-L Special Tests Start: 10/25/17 07:27 Freq: Status: Active Protocol: Document 10/25/17 10:07 [facility] (Rec: 10/25/17 10:29 [facility] [email or web address]) Special Tests Lumbar Spine Special Tests Straight Leg Raise Test Results neg B Slump Test Results postive R, Neg L PT-OP-M Strength Start: 10/25/17 07:27 Freq: Status: Active Protocol: Document 10/25/17 11:30 [facility] (Rec: 10/25/17 11:36 [facility] [email or web address]) Hip Strength Hip Manual Muscle Testing Right Flexion (L2) 4+ Good+ Extension (S1) 4 Good Abduction 4 Good External Rotation 4 Good Internal Rotation 4 Good Left Flexion (L2) 4+ Good+ Extension (S1) 4 Good Abduction 4 Good External Rotation 4 Good Internal Rotation 4 Good Knee Strength Knee Manual Muscle Testing Right Flexion (S2) 5 Normal Extension (L3) 5 Normal Left Flexion (S2) 5 Normal Extension (L3) 5 Normal Ankle/Foot Strength Ankle and Foot Manual Muscle Testing Right Dorsiflexion (L4) 4 Good Left Dorsiflexion (L4) 4 Good PT-OP-Q Treatments Start: 10/25/17 07:27 Freq: Status: Active Protocol: Document 12/19/17 16:13 ML (Rec: 12/19/17 16:43 ML [email or web address]) Cardio Equipment Elliptical Duration (Minutes) 6 Resistance 2 Therapeutic Exercises Standing Exercises 3 Standing Exercise Name hamstring stretch Side bilateral Comments tried in supine, unable to get good stretch, standing better , added to HEP 2 Standing Exercise Name marching Side bilateral Reps/Minutes 15 bilat Comments near countertop for safety and balance, mirror in position for visual cue 1 Standing Exercise Name TKE Resistance L4 Reps/Minutes 30 bilat Comments single leg Other Exercises 2 Other Exercise Name jatin pose 1 Other Exercise Name cat/camel Manual Therapy Treatment Soft Tissue Mobilization 1 Body Location lumbar paraspinals & QL Mobilization Type Myofascial Release Rolling Intensity/Depth Superficial Body Position Prone Comments and in cat/camel and child pose Manual Techniques 1 Type CR hamstring stretch Body Location hamstring Body Position Supine Comments in three planes PT-OP-R Modalities Start: 10/25/17 07:27 Freq: Status: Active Protocol: Document 12/17/17 08:14 [facility] (Rec: 12/17/17 09:00 [facility] [id number]) Hot Pack/Cold Pack Treatment Cold Pack Location lumbar Patient Position Prone Treatment Duration (minutes) 10 PT-OP-T Assessment and Plan Start: 10/25/17 07:27 Freq: Status: Active Protocol: Document 12/19/17 16:13 ML (Rec: 12/19/17 16:43 ML [email or web address]) Physical Therapy Assessment Goals Three Impairment pain Transit Man Goal (LTG) Pt will report no more than 2/ 10 LBP during the day. LTG Duration 01/25/18 Two Impairment muscle tightness Alf Goal (LTG) Pt will have no tenderness to palpation in LB region LTG Duration 01/25/18 One Impairment Strength Short Term Goal (STG) Pt will be indep with HEP STG Duration 12/25/17 Transit Man Goal (LTG) Pt will have 5/5 MMT for BLEs to allow improvement in movement to allow greater time on feet before pain. LTG Duration 01/25/18 Assessment Summary Assessment Pt liked the fluid, quick motion and stretch of the ellipitcal, better at not locking out L knee but avoids neutral ext (more flexed) when working on exercises. Physical Therapy Plan Frequency and Duration Frequency of Treatment 2x/Week Duration of Treatment 2 months Plan of Care Start Date 10/25/17 Plan of Care End Date 12/25/17 Next Visit Focus/Plan Next Note Type Treatment Note Next Visit Plan Cont to progress L knee ext without hyperext or flex in motion, balloon toss with stepping at counter for distraction; elliptical again for warm up and knee ext control; check soft tissue mob and hamstring flexibility
--- NOTE | 2017-12-24 11:00 | PT.OPPOC ---
Current Diagnoses Disease of spinal cord, unspecified (02/03/18) Spinal stenosis, lumbar region with neurogenic claudication (02/03/18) Other biomechanical lesions of lumbar region (02/03/18) Unspecified abnormalities of gait and mobility (02/03/18) Provider Visit Care Team Role Provider Type La Keith MD Primary Care Provider Non-Staff Specialty: Physical Medicine and Rehab Address: [address] [place] [address] [address] [facility] [place], [address] Email: Nemesio Carlisle MD Attending Provider Physician Specialty: Family Practice Address: [address] [place] [address], [id number] Email: Plan Of Care PT-OP-T Assessment and Plan Start: 10/25/17 07:27 Freq: Status: Active Protocol: Document 01/09/18 11:18 ML (Rec: 01/09/18 11:31 ML [id number]) Physical Therapy Assessment Goals Three Impairment pain Assisted Goal (LTG) Pt will report no more than 2/ 10 LBP during the day. LTG Duration 01/25/18 Two Impairment muscle tightness Assisted Goal (LTG) Pt will have no tenderness to palpation in LB region LTG Duration 01/25/18 One Impairment Strength Short Term Goal (STG) Pt will be indep with HEP STG Duration 12/25/17 Assisted Goal (LTG) Pt will have 5/5 MMT for BLEs to allow improvement in movement to allow greater time on feet before pain. LTG Duration 01/25/18 Assessment Summary Assessment Pt showed improvement in his PF strength increasing his wt for the shuttle recovery. Pt's balance, ability to wt shift, and have body awareness were challenged on the shuttle balance today, and the pt showed significant improvement in ability through each exercise. Pt showed to have dec hip flex with wall gait exercise, but after mobilization showed significant inc in ROM. Pt was then instructed on stabilization exercise for the new ROM. Physical Therapy Plan Frequency and Duration Frequency of Treatment 2x/Week Duration of Treatment 2 months Plan of Care Start Date 12/24/17 Plan of Care End Date 02/23/18 Next Visit Focus/Plan Next Note Type Progress Note Next Visit Plan cont to challenge balance and wt shift (controlled lunge walking), assess ROM bilat of hip, check soft tissue, shuttle recovery heel raises Plan of Care Dates Plan of Care Start Date 12/24/17 Plan of Care End Date 02/23/18 Please Sign and Return: I have reviewed this Plan of Care and certify that the skilled therapy services above are required to meet the patient?s needs. Physician Signature Date Printed Name and Credentials Clinical Instructor Signature Printed Name and Credentials
--- NOTE | 2017-12-24 11:21 | PT.OTN ---
Current Diagnoses Disease of spinal cord, unspecified (12/24/17) Spinal stenosis, lumbar region with neurogenic claudication (12/24/17) Other biomechanical lesions of lumbar region (12/24/17) Unspecified abnormalities of gait and mobility (12/24/17) Physical Therapy Treatment Note PT-OP-A Visit Information Start: 10/25/17 07:27 Freq: Status: Active Protocol: Document 12/24/17 10:50 ML (Rec: 12/24/17 11:17 ML [email or web address]) Out-Patient Physical Therapy Visit Information Visit Information Visit Type Treatment Note Visit Note 7 visits Visit Start Time 08:15 Visit Stop Time 09:00 Total Visit Minutes 45 Visit Number 6/ Number of SHALE MINER BLASTING Visits 0 PT-OP-B Current Condition Start: 10/25/17 07:27 Freq: Status: Active Protocol: Document 12/05/17 11:21 [facility] (Rec: 12/05/17 17:31 [facility] [email or web address]) Current Condition History of Current Condition Onset Date couple months ago Current Complaints LBP w/radicular pain into post LEs History of Current Condition 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 A ton of neurological tests were done on him until they found central canal stenosis in his neck. Pt had ACDF C4-7 and laminectomies of C5-7. This slowed the progress of the weakness of LEs & gait difficulties. Pt reports about a couple months ago, he started to have LBP with pain down post thighs and calves. Reports he started to have an inc in difficulty of walking. He has pain with standing and walking and pain is getting worse with decreasing time pt can spend up before pain starts. He sits down to relieve pain and does not allow pain to get over 5/10. It takes a little while of sitting to have pain relief. Reports no other treatment has been done and PT is first treatment approach. MD referal states that if PT increases pain, pt is to return to MD & stop PT. UPDATE* -pt had L4-5 lami 11/04 and was cleared to start PT. Thinks he may have dec foot drop since surgery and back pain has improved but feels tight still. No lifting >10 lbs, limit twisting and bending Prior Treatments and Tests Pt had MRI of cervical, thoracic & lumbar vertebra. Reports are in chart with evidence of central canal narrowing in cervical & lumbar region. PT-OP-C Subjective Start: 10/25/17 07:27 Freq: Status: Active Protocol: Document 12/24/17 10:50 ML (Rec: 12/24/17 11:17 ML [email or web address]) OP-PT Subjective Patient Comments Patient Comments Pt reports that the new exercises for HEP have been going well and that he is stretching hamstrings multiple times a day. PT-OP-F Manual Assessment Start: 10/25/17 07:27 Freq: Status: Active Protocol: Document 10/25/17 10:07 [facility] (Rec: 10/25/17 10:29 [facility] [email or web address]) Manual Assessments Soft Tissue Assessment Soft Tissue Mobility Assessment L>R QL tightness, B ES & HS tightness & R>L glute tightness Joint Mobility Assessment Joint Mobility Assessment With knee bend, pt has IR of R femur & ER of L with tibia neutral position and L ER. Pt has elevated R iliac crest with equal height greater trochanters. PT-OP-G Mobility & Gait Start: 10/25/17 07:27 Freq: Status: Active Protocol: Document 10/25/17 10:07 [facility] (Rec: 10/25/17 10:29 [facility] [email or web address]) OP Gait Assessment Comments Gait Comments Pt amb without AD with mild scissoring, knee hyperext and lateral leaning. Pt reports 1 fall in past year. PT-OP-K Range of Motion Start: 10/25/17 07:27 Freq: Status: Active Protocol: Document 10/25/17 10:07 [facility] (Rec: 10/25/17 10:29 [facility] [email or web address]) Lumbar Spine Range of Motion Lumbar Spine Active Degrees Testing Position standing Flexion 65 Extension 15 Lateral Flexion Left 25 Lateral Flexion Right 20 Comments tight with flex; about 75% L rotation & 60% R PT-OP-L Special Tests Start: 10/25/17 07:27 Freq: Status: Active Protocol: Document 10/25/17 10:07 [facility] (Rec: 10/25/17 10:29 [facility] [email or web address]) Special Tests Lumbar Spine Special Tests Straight Leg Raise Test Results neg B Slump Test Results postive R, Neg L PT-OP-M Strength Start: 10/25/17 07:27 Freq: Status: Active Protocol: Document 10/25/17 11:30 [facility] (Rec: 10/25/17 11:36 [facility] [email or web address]) Hip Strength Hip Manual Muscle Testing Right Flexion (L2) 4+ Good+ Extension (S1) 4 Good Abduction 4 Good External Rotation 4 Good Internal Rotation 4 Good Left Flexion (L2) 4+ Good+ Extension (S1) 4 Good Abduction 4 Good External Rotation 4 Good Internal Rotation 4 Good Knee Strength Knee Manual Muscle Testing Right Flexion (S2) 5 Normal Extension (L3) 5 Normal Left Flexion (S2) 5 Normal Extension (L3) 5 Normal Ankle/Foot Strength Ankle and Foot Manual Muscle Testing Right Dorsiflexion (L4) 4 Good Left Dorsiflexion (L4) 4 Good PT-OP-Q Treatments Start: 10/25/17 07:27 Freq: Status: Active Protocol: Document 12/24/17 10:50 ML (Rec: 12/24/17 11:17 ML [email or web address]) Cardio Equipment Elliptical Duration (Minutes) 6 Resistance 3 Therapeutic Exercises Standing Exercises 4 Standing Exercise Name mini lunge/steps forward and backward near counter Side bilateral Reps/Minutes 15 bilat forward and backward; then forward and backward slow walking 2x Comments stationary steps, walk length of counter, control knee ext, guard balance 3 Standing Exercise Name hamstring stretch Side bilateral Comments instructed for stool instead of chair, corrected posture, CR technique Manual Therapy Treatment Soft Tissue Mobilization 3 Body Location paraspinals with active forward flexion Mobilization Type Myofascial Release Rolling Sustained Pressure Intensity/Depth Moderate Body Position seated Comments start cervical and work caudally along paraspinals, pt instructed to flex slowly segment by segment starting with the neck 1 Body Location lumbar paraspinals & QL Mobilization Type Myofascial Release Rolling Intensity/Depth Superficial Body Position Prone Comments and in cat/camel Manual Techniques 1 Type CR hamstring stretch Body Location hamstring Body Position Supine Comments uniplanar, significant inc in motion and has improved since last visit PT-OP-R Modalities Start: 10/25/17 07:27 Freq: Status: Active Protocol: Document 12/17/17 08:14 [facility] (Rec: 12/17/17 09:00 [facility] [id number]) Hot Pack/Cold Pack Treatment Cold Pack Location lumbar Patient Position Prone Treatment Duration (minutes) 10 PT-OP-T Assessment and Plan Start: 10/25/17 07:27 Freq: Status: Active Protocol: Document 12/24/17 10:50 ML (Rec: 12/24/17 11:17 ML [email or web address]) Physical Therapy Assessment Impairments Impairments Balance Gait Posture Soft Tissue Mobility Strength Goals Three Impairment pain Audiovisual Tech Goal (LTG) Pt will report no more than 2/ 10 LBP during the day. LTG Duration 01/25/18 Two Impairment muscle tightness Audiovisual Tech Goal (LTG) Pt will have no tenderness to palpation in LB region LTG Duration 01/25/18 One Impairment Strength Short Term Goal (STG) Pt will be indep with HEP STG Duration 12/25/17 Senior Care Goal (LTG) Pt will have 5/5 MMT for BLEs to allow improvement in movement to allow greater time on feet before pain. LTG Duration 01/25/18 Assessment Summary Assessment Pt's posture was corrected for the hamstring stretch. Pt performed very well with the stepping/walking exercise when progressed from stepping to walking with knee ext control. Pt's fascial tension near scar continues to improve. Physical Therapy Plan Frequency and Duration Frequency of Treatment 2x/Week Duration of Treatment 2 months Plan of Care Start Date 12/24/17 Plan of Care End Date 02/23/18 Therapeutic Interventions Therapeutic Interventions Aquatic Therapy Balance Training Coordination Training Gait Training Joint Mobilizations Manual Therapy Neuromuscular Re-education Soft Tissue Mobilization Taping Therapeutic Activities Therapeutic Exercises Next Visit Focus/Plan Next Note Type Treatment Note Next Visit Plan Cont to progress L knee ext without hyperext or flex in motion with stepping at counter and work on the knee ext with push off; elliptical again for gait mechanics; check hamstring exercise posture and ask about difference between sustained and CR; evaluate more of the pt's posture and balance ( mentioned feeling very flexed forward in gait) and check on balance mirror exercise.
--- NOTE | 2017-12-24 12:58 | PT.OPPN ---
Current Diagnoses Disease of spinal cord, unspecified (12/24/17) Spinal stenosis, lumbar region with neurogenic claudication (12/24/17) Other biomechanical lesions of lumbar region (12/24/17) Unspecified abnormalities of gait and mobility (12/24/17) Physical Therapy Progress Note PT-OP-A Visit Information Start: 10/25/17 07:27 Freq: Status: Active Protocol: Document 12/24/17 10:50 ML (Rec: 12/24/17 11:17 ML [email or web address]) Out-Patient Physical Therapy Visit Information Visit Information Visit Type Treatment Note Visit Note 7 visits Visit Start Time 08:15 Visit Stop Time 09:00 Total Visit Minutes 45 Visit Number 6/ Number of MARKETING AUTOMATION ANALYST Visits 0 PT-OP-B Current Condition Start: 10/25/17 07:27 Freq: Status: Active Protocol: Document 12/05/17 11:21 [facility] (Rec: 12/05/17 17:31 [facility] [email or web address]) Current Condition History of Current Condition Onset Date couple months ago Current Complaints LBP w/radicular pain into post LEs History of Current Condition 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 A ton of neurological tests were done on him until they found central canal stenosis in his neck. Pt had ACDF C4-7 and laminectomies of C5-7. This slowed the progress of the weakness of LEs & gait difficulties. Pt reports about a couple months ago, he started to have LBP with pain down post thighs and calves. Reports he started to have an inc in difficulty of walking. He has pain with standing and walking and pain is getting worse with decreasing time pt can spend up before pain starts. He sits down to relieve pain and does not allow pain to get over 5/10. It takes a little while of sitting to have pain relief. Reports no other treatment has been done and PT is first treatment approach. MD referal states that if PT increases pain, pt is to return to MD & stop PT. UPDATE* -pt had L4-5 lami 11/04 and was cleared to start PT. Thinks he may have dec foot drop since surgery and back pain has improved but feels tight still. No lifting >10 lbs, limit twisting and bending Prior Treatments and Tests Pt had MRI of cervical, thoracic & lumbar vertebra. Reports are in chart with evidence of central canal narrowing in cervical & lumbar region. PT-OP-C Subjective Start: 10/25/17 07:27 Freq: Status: Active Protocol: Document 12/24/17 10:50 ML (Rec: 12/24/17 11:17 ML [email or web address]) OP-PT Subjective Patient Comments Patient Comments Pt reports that the new exercises for HEP have been going well and that he is stretching hamstrings multiple times a day. PT-OP-F Manual Assessment Start: 10/25/17 07:27 Freq: Status: Active Protocol: Document 10/25/17 10:07 [facility] (Rec: 10/25/17 10:29 [facility] [email or web address]) Manual Assessments Soft Tissue Assessment Soft Tissue Mobility Assessment L>R QL tightness, B ES & HS tightness & R>L glute tightness Joint Mobility Assessment Joint Mobility Assessment With knee bend, pt has IR of R femur & ER of L with tibia neutral position and L ER. Pt has elevated R iliac crest with equal height greater trochanters. PT-OP-G Mobility & Gait Start: 10/25/17 07:27 Freq: Status: Active Protocol: Document 10/25/17 10:07 [facility] (Rec: 10/25/17 10:29 [facility] [email or web address]) OP Gait Assessment Comments Gait Comments Pt amb without AD with mild scissoring, knee hyperext and lateral leaning. Pt reports 1 fall in past year. PT-OP-K Range of Motion Start: 10/25/17 07:27 Freq: Status: Active Protocol: Document 10/25/17 10:07 [facility] (Rec: 10/25/17 10:29 [facility] [email or web address]) Lumbar Spine Range of Motion Lumbar Spine Active Degrees Testing Position standing Flexion 65 Extension 15 Lateral Flexion Left 25 Lateral Flexion Right 20 Comments tight with flex; about 75% L rotation & 60% R PT-OP-L Special Tests Start: 10/25/17 07:27 Freq: Status: Active Protocol: Document 10/25/17 10:07 [facility] (Rec: 10/25/17 10:29 [facility] [email or web address]) Special Tests Lumbar Spine Special Tests Straight Leg Raise Test Results neg B Slump Test Results postive R, Neg L PT-OP-M Strength Start: 10/25/17 07:27 Freq: Status: Active Protocol: Document 10/25/17 11:30 [facility] (Rec: 10/25/17 11:36 [facility] [email or web address]) Hip Strength Hip Manual Muscle Testing Right Flexion (L2) 4+ Good+ Extension (S1) 4 Good Abduction 4 Good External Rotation 4 Good Internal Rotation 4 Good Left Flexion (L2) 4+ Good+ Extension (S1) 4 Good Abduction 4 Good External Rotation 4 Good Internal Rotation 4 Good Knee Strength Knee Manual Muscle Testing Right Flexion (S2) 5 Normal Extension (L3) 5 Normal Left Flexion (S2) 5 Normal Extension (L3) 5 Normal Ankle/Foot Strength Ankle and Foot Manual Muscle Testing Right Dorsiflexion (L4) 4 Good Left Dorsiflexion (L4) 4 Good PT-OP-T Assessment and Plan Start: 10/25/17 07:27 Freq: Status: Active Protocol: Document 12/24/17 10:50 ML (Rec: 12/24/17 11:17 ML [email or web address]) Physical Therapy Assessment Impairments Impairments Balance Gait Posture Soft Tissue Mobility Strength Goals Three Impairment pain Chcf Goal (LTG) Pt will report no more than 2/ 10 LBP during the day. LTG Duration 01/25/18 Two Impairment muscle tightness Case Management Social Worker Goal (LTG) Pt will have no tenderness to palpation in LB region LTG Duration 01/25/18 One Impairment Strength Short Term Goal (STG) Pt will be indep with HEP STG Duration 12/25/17 Case Management Social Worker Goal (LTG) Pt will have 5/5 MMT for BLEs to allow improvement in movement to allow greater time on feet before pain. LTG Duration 01/25/18 Assessment Summary Assessment Pt's posture was corrected for the hamstring stretch. Pt performed very well with the stepping/walking exercise when progressed from stepping to walking with knee ext control. Pt's fascial tension near scar continues to improve. Physical Therapy Plan Frequency and Duration Frequency of Treatment 2x/Week Duration of Treatment 2 months Plan of Care Start Date 12/24/17 Plan of Care End Date 02/23/18 Therapeutic Interventions Therapeutic Interventions Aquatic Therapy Balance Training Coordination Training Gait Training Joint Mobilizations Manual Therapy Neuromuscular Re-education Soft Tissue Mobilization Taping Therapeutic Activities Therapeutic Exercises Next Visit Focus/Plan Next Note Type Treatment Note Next Visit Plan Cont to progress L knee ext without hyperext or flex in motion with stepping at counter and work on the knee ext with push off; elliptical again for gait mechanics; check hamstring exercise posture and ask about difference between sustained and CR; evaluate more of the pt's posture and balance ( mentioned feeling very flexed forward in gait) and check on balance mirror exercise.
--- NOTE | 2017-12-31 12:10 | PT.OTN ---
Current Diagnoses Disease of spinal cord, unspecified (12/31/17) Spinal stenosis, lumbar region with neurogenic claudication (12/31/17) Other biomechanical lesions of lumbar region (12/31/17) Unspecified abnormalities of gait and mobility (12/31/17) Physical Therapy Treatment Note PT-OP-A Visit Information Start: 10/25/17 07:27 Freq: Status: Active Protocol: Document 12/31/17 09:11 ML (Rec: 12/31/17 09:13 ML [email or web address]) Out-Patient Physical Therapy Visit Information Visit Information Visit Type Treatment Note Visit Note 8 visits Visit Start Time 08:15 Visit Stop Time 09:00 Total Visit Minutes 45 Visit Number 6/ Number of COMSEC MANAGER Visits 0 PT-OP-B Current Condition Start: 10/25/17 07:27 Freq: Status: Active Protocol: Document 12/05/17 11:21 [facility] (Rec: 12/05/17 17:31 [facility] [email or web address]) Current Condition History of Current Condition Onset Date couple months ago Current Complaints LBP w/radicular pain into post LEs History of Current Condition 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 A ton of neurological tests were done on him until they found central canal stenosis in his neck. Pt had ACDF C4-7 and laminectomies of C5-7. This slowed the progress of the weakness of LEs & gait difficulties. Pt reports about a couple months ago, he started to have LBP with pain down post thighs and calves. Reports he started to have an inc in difficulty of walking. He has pain with standing and walking and pain is getting worse with decreasing time pt can spend up before pain starts. He sits down to relieve pain and does not allow pain to get over 5/10. It takes a little while of sitting to have pain relief. Reports no other treatment has been done and PT is first treatment approach. MD referal states that if PT increases pain, pt is to return to MD & stop PT. UPDATE* -pt had L4-5 lami 11/04 and was cleared to start PT. Thinks he may have dec foot drop since surgery and back pain has improved but feels tight still. No lifting >10 lbs, limit twisting and bending Prior Treatments and Tests Pt had MRI of cervical, thoracic & lumbar vertebra. Reports are in chart with evidence of central canal narrowing in cervical & lumbar region. PT-OP-C Subjective Start: 10/25/17 07:27 Freq: Status: Active Protocol: Document 12/31/17 09:11 ML (Rec: 12/31/17 09:13 ML [email or web address]) OP-PT Subjective Patient Comments Patient Comments Pt reports that his low back felt stiff today, especially on the right, although he couldn't recall doing anything different than usual to aggrevate it. But after our session today that he was feeling much better and loosened up. PT-OP-F Manual Assessment Start: 10/25/17 07:27 Freq: Status: Active Protocol: Document 10/25/17 10:07 [facility] (Rec: 10/25/17 10:29 [facility] [email or web address]) Manual Assessments Soft Tissue Assessment Soft Tissue Mobility Assessment L>R QL tightness, B ES & HS tightness & R>L glute tightness Joint Mobility Assessment Joint Mobility Assessment With knee bend, pt has IR of R femur & ER of L with tibia neutral position and L ER. Pt has elevated R iliac crest with equal height greater trochanters. PT-OP-G Mobility & Gait Start: 10/25/17 07:27 Freq: Status: Active Protocol: Document 10/25/17 10:07 [facility] (Rec: 10/25/17 10:29 [facility] [email or web address]) OP Gait Assessment Comments Gait Comments Pt amb without AD with mild scissoring, knee hyperext and lateral leaning. Pt reports 1 fall in past year. PT-OP-K Range of Motion Start: 10/25/17 07:27 Freq: Status: Active Protocol: Document 10/25/17 10:07 [facility] (Rec: 10/25/17 10:29 [facility] [email or web address]) Lumbar Spine Range of Motion Lumbar Spine Active Degrees Testing Position standing Flexion 65 Extension 15 Lateral Flexion Left 25 Lateral Flexion Right 20 Comments tight with flex; about 75% L rotation & 60% R PT-OP-L Special Tests Start: 10/25/17 07:27 Freq: Status: Active Protocol: Document 10/25/17 10:07 [facility] (Rec: 10/25/17 10:29 [facility] [email or web address]) Special Tests Lumbar Spine Special Tests Straight Leg Raise Test Results neg B Slump Test Results postive R, Neg L PT-OP-M Strength Start: 10/25/17 07:27 Freq: Status: Active Protocol: Document 10/25/17 11:30 [facility] (Rec: 10/25/17 11:36 [facility] [email or web address]) Hip Strength Hip Manual Muscle Testing Right Flexion (L2) 4+ Good+ Extension (S1) 4 Good Abduction 4 Good External Rotation 4 Good Internal Rotation 4 Good Left Flexion (L2) 4+ Good+ Extension (S1) 4 Good Abduction 4 Good External Rotation 4 Good Internal Rotation 4 Good Knee Strength Knee Manual Muscle Testing Right Flexion (S2) 5 Normal Extension (L3) 5 Normal Left Flexion (S2) 5 Normal Extension (L3) 5 Normal Ankle/Foot Strength Ankle and Foot Manual Muscle Testing Right Dorsiflexion (L4) 4 Good Left Dorsiflexion (L4) 4 Good PT-OP-Q Treatments Start: 10/25/17 07:27 Freq: Status: Active Protocol: Document 12/31/17 09:11 ML (Rec: 12/31/17 12:10 ML [email or web address]) Cardio Equipment Elliptical Duration (Minutes) 6 Resistance 3 Therapeutic Exercises Standing Exercises 7 Standing Exercise Name calf stretch Side bilateral Comments added to HEP 6 Standing Exercise Name calf raises Side bilateral Equipment Used parallel bars Comments single leg bilat showed some difficulty w/knee ext, knee flex very difficul 5 Standing Exercise Name [employer] DF/PF weight shifts Side bilateral Reps/Minutes 10 Comments little difficulty, maintained good knee position Manual Therapy Treatment Soft Tissue Mobilization 1 Body Location lumbar paraspinals & QL Mobilization Type Myofascial Release Rolling Intensity/Depth Superficial Body Position Prone Comments w/deep breathing, R side only Joint Mobilizations 2 Joint hip Body Position Prone Comments R ER and L IR, showed significant inc ROM bilat 1 Joint sacrum Direction PA Body Position Prone Comments R inferior, w/IR/ER of R leg PT-OP-R Modalities Start: 10/25/17 07:27 Freq: Status: Active Protocol: Document 12/17/17 08:14 [facility] (Rec: 12/17/17 09:00 [facility] [id number]) Hot Pack/Cold Pack Treatment Cold Pack Location lumbar Patient Position Prone Treatment Duration (minutes) 10 PT-OP-T Assessment and Plan Start: 10/25/17 07:27 Freq: Status: Active Protocol: Document 12/31/17 09:11 ML (Rec: 12/31/17 09:13 ML [email or web address]) Physical Therapy Assessment Goals Three Impairment pain Alf Goal (LTG) Pt will report no more than 2/ 10 LBP during the day. LTG Duration 01/25/18 Two Impairment muscle tightness Teller Goal (LTG) Pt will have no tenderness to palpation in LB region LTG Duration 01/25/18 One Impairment Strength Short Term Goal (STG) Pt will be indep with HEP STG Duration 12/25/17 Alf Goal (LTG) Pt will have 5/5 MMT for BLEs to allow improvement in movement to allow greater time on feet before pain. LTG Duration 01/25/18 Assessment Summary Assessment Pt came in feeling stiff but left feeling much better and loosened up after manual treatment and his gait training on the elliptical. Pt demonstrated little difficulty with wt shifting on rocker board, but showed limitations in PF strength, especially with a flexed knee, and was instructed for additional HEP, as well as HEP stretch for his limitations in DF. Physical Therapy Plan Frequency and Duration Frequency of Treatment 2x/Week Duration of Treatment 2 months Plan of Care Start Date 12/24/17 Plan of Care End Date 02/23/18 Next Visit Focus/Plan Next Note Type Treatment Note Next Visit Plan Check with pt on calf raises and stretch, work L single leg on shuttle recovery, work on wt shifting with bent knees, work gait with PF push off focus
--- NOTE | 2018-01-02 12:30 | PT.OTN ---
Current Diagnoses Disease of spinal cord, unspecified (01/02/18) Spinal stenosis, lumbar region with neurogenic claudication (01/02/18) Other biomechanical lesions of lumbar region (01/02/18) Unspecified abnormalities of gait and mobility (01/02/18) Physical Therapy Treatment Note PT-OP-A Visit Information Start: 10/25/17 07:27 Freq: Status: Active Protocol: Document 01/02/18 12:02 ML (Rec: 01/02/18 12:30 ML [email or web address]) Out-Patient Physical Therapy Visit Information Visit Information Visit Type Treatment Note Visit Note 9 visits Visit Start Time 08:15 Visit Stop Time 09:00 Total Visit Minutes 45 Visit Number 10/01 Number of BRUSH TRIMMING MACHINE SETTER Visits 0 PT-OP-B Current Condition Start: 10/25/17 07:27 Freq: Status: Active Protocol: Document 12/05/17 11:21 [facility] (Rec: 12/05/17 17:31 [facility] [email or web address]) Current Condition History of Current Condition Onset Date couple months ago Current Complaints LBP w/radicular pain into post LEs History of Current Condition 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 A ton of neurological tests were done on him until they found central canal stenosis in his neck. Pt had ACDF C4-7 and laminectomies of C5-7. This slowed the progress of the weakness of LEs & gait difficulties. Pt reports about a couple months ago, he started to have LBP with pain down post thighs and calves. Reports he started to have an inc in difficulty of walking. He has pain with standing and walking and pain is getting worse with decreasing time pt can spend up before pain starts. He sits down to relieve pain and does not allow pain to get over 5/10. It takes a little while of sitting to have pain relief. Reports no other treatment has been done and PT is first treatment approach. MD referal states that if PT increases pain, pt is to return to MD & stop PT. UPDATE* -pt had L4-5 lami 11/04 and was cleared to start PT. Thinks he may have dec foot drop since surgery and back pain has improved but feels tight still. No lifting >10 lbs, limit twisting and bending Prior Treatments and Tests Pt had MRI of cervical, thoracic & lumbar vertebra. Reports are in chart with evidence of central canal narrowing in cervical & lumbar region. PT-OP-C Subjective Start: 10/25/17 07:27 Freq: Status: Active Protocol: Document 01/02/18 12:02 ML (Rec: 01/02/18 12:30 ML [email or web address]) OP-PT Subjective Patient Comments Patient Comments Pt reports that he is doing well today without the back tightness that he had last visit and that his back didn't bother him since he left his last session. Pt indicated his surprise about his soleus weakness but that he did his new HEP that addressed this weakness but that it helped for him to think of his heel strike in his gait to avoid knee hyperext. PT-OP-F Manual Assessment Start: 10/25/17 07:27 Freq: Status: Active Protocol: Document 10/25/17 10:07 [facility] (Rec: 10/25/17 10:29 [facility] [email or web address]) Manual Assessments Soft Tissue Assessment Soft Tissue Mobility Assessment L>R QL tightness, B ES & HS tightness & R>L glute tightness Joint Mobility Assessment Joint Mobility Assessment With knee bend, pt has IR of R femur & ER of L with tibia neutral position and L ER. Pt has elevated R iliac crest with equal height greater trochanters. PT-OP-G Mobility & Gait Start: 10/25/17 07:27 Freq: Status: Active Protocol: Document 10/25/17 10:07 [facility] (Rec: 10/25/17 10:29 [facility] [email or web address]) OP Gait Assessment Comments Gait Comments Pt amb without AD with mild scissoring, knee hyperext and lateral leaning. Pt reports 1 fall in past year. PT-OP-K Range of Motion Start: 10/25/17 07:27 Freq: Status: Active Protocol: Document 10/25/17 10:07 [facility] (Rec: 10/25/17 10:29 [facility] [email or web address]) Lumbar Spine Range of Motion Lumbar Spine Active Degrees Testing Position standing Flexion 65 Extension 15 Lateral Flexion Left 25 Lateral Flexion Right 20 Comments tight with flex; about 75% L rotation & 60% R PT-OP-L Special Tests Start: 10/25/17 07:27 Freq: Status: Active Protocol: Document 10/25/17 10:07 [facility] (Rec: 10/25/17 10:29 [facility] [email or web address]) Special Tests Lumbar Spine Special Tests Straight Leg Raise Test Results neg B Slump Test Results postive R, Neg L PT-OP-M Strength Start: 10/25/17 07:27 Freq: Status: Active Protocol: Document 10/25/17 11:30 [facility] (Rec: 10/25/17 11:36 [facility] [email or web address]) Hip Strength Hip Manual Muscle Testing Right Flexion (L2) 4+ Good+ Extension (S1) 4 Good Abduction 4 Good External Rotation 4 Good Internal Rotation 4 Good Left Flexion (L2) 4+ Good+ Extension (S1) 4 Good Abduction 4 Good External Rotation 4 Good Internal Rotation 4 Good Knee Strength Knee Manual Muscle Testing Right Flexion (S2) 5 Normal Extension (L3) 5 Normal Left Flexion (S2) 5 Normal Extension (L3) 5 Normal Ankle/Foot Strength Ankle and Foot Manual Muscle Testing Right Dorsiflexion (L4) 4 Good Left Dorsiflexion (L4) 4 Good PT-OP-Q Treatments Start: 10/25/17 07:27 Freq: Status: Active Protocol: Document 01/02/18 12:02 ML (Rec: 01/02/18 12:30 ML [email or web address]) Cardio Equipment Elliptical Duration (Minutes) 6 Resistance 3 Gym Equipment Shuttle Recovery Unilateral Heel Raises Details flexed knee Resistance 25lbs Shuttle Recovery Platform Stable Reps/Time more on L than R Therapeutic Exercises Standing Exercises 9 Standing Exercise Name hip ext Resistance none Comments at bar, verbal and tactile cueing for upright posture 8 Standing Exercise Name mini lunges Comments alt lunges stationary at bar, then walking lunges, cues for upright posture 6 Standing Exercise Name calf raises Side bilateral Equipment Used parallel bars Comments single leg bilat showed some difficulty w/knee ext, knee flex very difficul Manual Therapy Treatment Soft Tissue Mobilization 4 Body Location iliopsoas release Mobilization Type Sustained Pressure Trigger Point Release Intensity/Depth Moderate Body Position Supine Comments tank test to assess tightness, same position with L leg off EOB, knee ext to faciliate L release PT-OP-R Modalities Start: 10/25/17 07:27 Freq: Status: Active Protocol: Document 12/17/17 08:14 [facility] (Rec: 12/17/17 09:00 [facility] [id number]) Hot Pack/Cold Pack Treatment Cold Pack Location lumbar Patient Position Prone Treatment Duration (minutes) 10 PT-OP-T Assessment and Plan Start: 10/25/17 07:27 Freq: Status: Active Protocol: Document 01/02/18 12:02 ML (Rec: 01/02/18 12:30 ML [email or web address]) Physical Therapy Assessment Goals Three Impairment pain Emission Technician Goal (LTG) Pt will report no more than 2/ 10 LBP during the day. LTG Duration 01/25/18 Two Impairment muscle tightness Emission Technician Goal (LTG) Pt will have no tenderness to palpation in LB region LTG Duration 01/25/18 One Impairment Strength Short Term Goal (STG) Pt will be indep with HEP STG Duration 12/25/17 Correction Goal (LTG) Pt will have 5/5 MMT for BLEs to allow improvement in movement to allow greater time on feet before pain. LTG Duration 01/25/18 Assessment Summary Assessment After addressing the pt's soleus weakness with lunges, the pt showed improvement in the fluidity of his gait and less lateral trunk leaning, especially when slowing his gait. The pt did tend to show a posterior lean with his trunk, so hip ext strength was addressed and hip flexor tightness as well. The pt showed difficulty with standing hip ext but was instructed to do at home. After assessing his flexibility, the pt showed significant tightness bilaterally, but primarily on his left. After release, the pt improved his ROM significantly. Physical Therapy Plan Frequency and Duration Frequency of Treatment 2x/Week Duration of Treatment 2 months Plan of Care Start Date 12/24/17 Plan of Care End Date 02/23/18 Therapeutic Interventions Therapeutic Interventions Aquatic Therapy Balance Training Coordination Training Gait Training Joint Mobilizations Manual Therapy Neuromuscular Re-education Soft Tissue Mobilization Taping Therapeutic Activities Therapeutic Exercises Next Visit Focus/Plan Next Note Type Treatment Note Next Visit Plan Check on new exercises, continue to work ROM limitations (iliopsoas, rectus fem, and sacrum), single leg shuttle recovery, shuttle balance eye closed to challenge trunk positioning
--- NOTE | 2018-01-07 16:40 | PT.OTN ---
Current Diagnoses Disease of spinal cord, unspecified (01/07/18) Spinal stenosis, lumbar region with neurogenic claudication (01/07/18) Other biomechanical lesions of lumbar region (01/07/18) Unspecified abnormalities of gait and mobility (01/07/18) Physical Therapy Treatment Note PT-OP-A Visit Information Start: 10/25/17 07:27 Freq: Status: Active Protocol: Document 01/07/18 10:36 ML (Rec: 01/07/18 10:40 ML [email or web address]) Out-Patient Physical Therapy Visit Information Visit Information Visit Type Treatment Note Visit Note 10 visits Visit Start Time 08:15 Visit Stop Time 09:00 Total Visit Minutes 45 Visit Number 11/01 Number of PULMONARY FELLOW Visits 0 PT-OP-B Current Condition Start: 10/25/17 07:27 Freq: Status: Active Protocol: Document 12/05/17 11:21 [facility] (Rec: 12/05/17 17:31 [facility] [email or web address]) Current Condition History of Current Condition Onset Date couple months ago Current Complaints LBP w/radicular pain into post LEs History of Current Condition 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 A ton of neurological tests were done on him until they found central canal stenosis in his neck. Pt had ACDF C4-7 and laminectomies of C5-7. This slowed the progress of the weakness of LEs & gait difficulties. Pt reports about a couple months ago, he started to have LBP with pain down post thighs and calves. Reports he started to have an inc in difficulty of walking. He has pain with standing and walking and pain is getting worse with decreasing time pt can spend up before pain starts. He sits down to relieve pain and does not allow pain to get over 5/10. It takes a little while of sitting to have pain relief. Reports no other treatment has been done and PT is first treatment approach. MD referal states that if PT increases pain, pt is to return to MD & stop PT. UPDATE* -pt had L4-5 lami 11/04 and was cleared to start PT. Thinks he may have dec foot drop since surgery and back pain has improved but feels tight still. No lifting >10 lbs, limit twisting and bending Prior Treatments and Tests Pt had MRI of cervical, thoracic & lumbar vertebra. Reports are in chart with evidence of central canal narrowing in cervical & lumbar region. PT-OP-C Subjective Start: 10/25/17 07:27 Freq: Status: Active Protocol: Document 01/07/18 10:36 ML (Rec: 01/07/18 10:40 ML [email or web address]) OP-PT Subjective Patient Comments Patient Comments Pt reported that his L low back was a little sore after biking 4-5 miles. PT-OP-F Manual Assessment Start: 10/25/17 07:27 Freq: Status: Active Protocol: Document 10/25/17 10:07 [facility] (Rec: 10/25/17 10:29 [facility] [email or web address]) Manual Assessments Soft Tissue Assessment Soft Tissue Mobility Assessment L>R QL tightness, B ES & HS tightness & R>L glute tightness Joint Mobility Assessment Joint Mobility Assessment With knee bend, pt has IR of R femur & ER of L with tibia neutral position and L ER. Pt has elevated R iliac crest with equal height greater trochanters. PT-OP-G Mobility & Gait Start: 10/25/17 07:27 Freq: Status: Active Protocol: Document 10/25/17 10:07 [facility] (Rec: 10/25/17 10:29 [facility] [email or web address]) OP Gait Assessment Comments Gait Comments Pt amb without AD with mild scissoring, knee hyperext and lateral leaning. Pt reports 1 fall in past year. PT-OP-K Range of Motion Start: 10/25/17 07:27 Freq: Status: Active Protocol: Document 10/25/17 10:07 [facility] (Rec: 10/25/17 10:29 [facility] [email or web address]) Lumbar Spine Range of Motion Lumbar Spine Active Degrees Testing Position standing Flexion 65 Extension 15 Lateral Flexion Left 25 Lateral Flexion Right 20 Comments tight with flex; about 75% L rotation & 60% R PT-OP-L Special Tests Start: 10/25/17 07:27 Freq: Status: Active Protocol: Document 10/25/17 10:07 [facility] (Rec: 10/25/17 10:29 [facility] [email or web address]) Special Tests Lumbar Spine Special Tests Straight Leg Raise Test Results neg B Slump Test Results postive R, Neg L PT-OP-M Strength Start: 10/25/17 07:27 Freq: Status: Active Protocol: Document 10/25/17 11:30 [facility] (Rec: 10/25/17 11:36 [facility] [email or web address]) Hip Strength Hip Manual Muscle Testing Right Flexion (L2) 4+ Good+ Extension (S1) 4 Good Abduction 4 Good External Rotation 4 Good Internal Rotation 4 Good Left Flexion (L2) 4+ Good+ Extension (S1) 4 Good Abduction 4 Good External Rotation 4 Good Internal Rotation 4 Good Knee Strength Knee Manual Muscle Testing Right Flexion (S2) 5 Normal Extension (L3) 5 Normal Left Flexion (S2) 5 Normal Extension (L3) 5 Normal Ankle/Foot Strength Ankle and Foot Manual Muscle Testing Right Dorsiflexion (L4) 4 Good Left Dorsiflexion (L4) 4 Good PT-OP-Q Treatments Start: 10/25/17 07:27 Freq: Status: Active Protocol: Document 01/07/18 10:36 ML (Rec: 01/07/18 10:40 ML [email or web address]) Cardio Equipment Elliptical Duration (Minutes) 6 Resistance 3 Therapeutic Exercises Standing Exercises 10 Standing Exercise Name gait press at wall Comments for post depression pelvis on L side Manual Therapy Treatment Soft Tissue Mobilization 1 Body Location lumbar paraspinals & QL Mobilization Type Myofascial Release Rolling Intensity/Depth Superficial Body Position Prone Comments w/deep breathing, L > R Neuro Re-Education Treatment Other Activities 1 Details PNF L post pelvic depression Comments eccentric lengthening (ant elevation COI) followed by concentric holds, assisted progressed to resisted, knee ext, hip IR and hip ext resisted in post depression position PT-OP-R Modalities Start: 10/25/17 07:27 Freq: Status: Active Protocol: Document 12/17/17 08:14 [facility] (Rec: 12/17/17 09:00 [facility] [id number]) Hot Pack/Cold Pack Treatment Cold Pack Location lumbar Patient Position Prone Treatment Duration (minutes) 10 PT-OP-T Assessment and Plan Start: 10/25/17 07:27 Freq: Status: Active Protocol: Document 01/07/18 10:36 ML (Rec: 01/07/18 16:20 ML [email or web address]) Physical Therapy Assessment Goals Three Impairment pain Product Architect Goal (LTG) Pt will report no more than 2/ 10 LBP during the day. LTG Duration 01/25/18 Two Impairment muscle tightness Senior Living Goal (LTG) Pt will have no tenderness to palpation in LB region LTG Duration 01/25/18 One Impairment Strength Short Term Goal (STG) Pt will be indep with HEP STG Duration 12/25/17 Senior Living Goal (LTG) Pt will have 5/5 MMT for BLEs to allow improvement in movement to allow greater time on feet before pain. LTG Duration 01/25/18 Assessment Summary Assessment Pt came in feeling a little sore today, with more knee locking in gait than usual. Pelvis motion was assessed and showed limitations in post depression on L. PNF re-ed followed by ther ex at wall to retrain this motion in gait improved his pelvic mobility and decreased knee hyperext in gait. Wall exercise for post depression was added to HEP. Physical Therapy Plan Frequency and Duration Frequency of Treatment 2x/Week Duration of Treatment 2 months Plan of Care Start Date 12/24/17 Plan of Care End Date 02/23/18 Next Visit Focus/Plan Next Note Type Treatment Note Next Visit Plan Assess pelvic mobility, soft tissue, ROM limitations, shuttle recovery single leg heel raises, shuttle balance eyes closed for trunk awareness training
--- NOTE | 2018-01-09 11:31 | PT.OTN ---
Current Diagnoses Disease of spinal cord, unspecified (01/09/18) Spinal stenosis, lumbar region with neurogenic claudication (01/09/18) Other biomechanical lesions of lumbar region (01/09/18) Unspecified abnormalities of gait and mobility (01/09/18) Physical Therapy Treatment Note PT-OP-A Visit Information Start: 10/25/17 07:27 Freq: Status: Active Protocol: Document 01/09/18 11:18 ML (Rec: 01/09/18 11:31 ML [id number]) Out-Patient Physical Therapy Visit Information Visit Information Visit Type Treatment Note Visit Note 11 visits Visit Start Time 08:15 Visit Stop Time 09:00 Total Visit Minutes 45 Visit Number 9/10 Number of KITCHEN HELP HANDYMAN Visits 0 PT-OP-B Current Condition Start: 10/25/17 07:27 Freq: Status: Active Protocol: Document 12/05/17 11:21 [facility] (Rec: 12/05/17 17:31 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 A ton of neurological tests were done on him until they found central canal stenosis in his neck. Pt had ACDF C4-7 and laminectomies of C5-7. This slowed the progress of the weakness of LEs & gait difficulties. Pt reports about a couple months ago, he started to have LBP with pain down post thighs and calves. Reports he started to have an inc in difficulty of walking. He has pain with standing and walking and pain is getting worse with decreasing time pt can spend up before pain starts. He sits down to relieve pain and does not allow pain to get over 5/10. It takes a little while of sitting to have pain relief. Reports no other treatment has been done and PT is first treatment approach. MD referal states that if PT increases pain, pt is to return to MD & stop PT. UPDATE* -pt had L4-5 lami 11/04 and was cleared to start PT. Thinks he may have dec foot drop since surgery and back pain has improved but feels tight still. No lifting >10 lbs, limit twisting and bending Prior Treatments and Tests Pt had MRI of cervical, thoracic & lumbar vertebra. Reports are in chart with evidence of central canal narrowing in cervical & lumbar region. PT-OP-C Subjective Start: 10/25/17 07:27 Freq: Status: Active Protocol: Document 01/09/18 11:18 ML (Rec: 01/09/18 11:31 ML [id number]) OP-PT Subjective Patient Comments Patient Comments Pt reported that he was feeling better today, only very slight stiffness, but it seemed to dissipate through the PT session. Pt reported that his new HEP exercise was going well and had no questions on it. PT-OP-F Manual Assessment Start: 10/25/17 07:27 Freq: Status: Active Protocol: Document 10/25/17 10:07 [facility] (Rec: 10/25/17 10:29 [facility] [email or web address]) Manual Assessments Soft Tissue Assessment Soft Tissue Mobility Assessment L>R QL tightness, B ES & HS tightness & R>L glute tightness Joint Mobility Assessment Joint Mobility Assessment With knee bend, pt has IR of R femur & ER of L with tibia neutral position and L ER. Pt has elevated R iliac crest with equal height greater trochanters. PT-OP-G Mobility & Gait Start: 10/25/17 07:27 Freq: Status: Active Protocol: Document 10/25/17 10:07 [facility] (Rec: 10/25/17 10:29 [facility] [email or web address]) OP Gait Assessment Comments Gait Comments Pt amb without AD with mild scissoring, knee hyperext and lateral leaning. Pt reports 1 fall in past year. PT-OP-K Range of Motion Start: 10/25/17 07:27 Freq: Status: Active Protocol: Document 10/25/17 10:07 [facility] (Rec: 10/25/17 10:29 [facility] [email or web address]) Lumbar Spine Range of Motion Lumbar Spine Active Degrees Testing Position standing Flexion 65 Extension 15 Lateral Flexion Left 25 Lateral Flexion Right 20 Comments tight with flex; about 75% L rotation & 60% R PT-OP-L Special Tests Start: 10/25/17 07:27 Freq: Status: Active Protocol: Document 10/25/17 10:07 [facility] (Rec: 10/25/17 10:29 [facility] [email or web address]) Special Tests Lumbar Spine Special Tests Straight Leg Raise Test Results neg B Slump Test Results postive R, Neg L PT-OP-M Strength Start: 10/25/17 07:27 Freq: Status: Active Protocol: Document 10/25/17 11:30 [facility] (Rec: 10/25/17 11:36 [facility] [email or web address]) Hip Strength Hip Manual Muscle Testing Right Flexion (L2) 4+ Good+ Extension (S1) 4 Good Abduction 4 Good External Rotation 4 Good Internal Rotation 4 Good Left Flexion (L2) 4+ Good+ Extension (S1) 4 Good Abduction 4 Good External Rotation 4 Good Internal Rotation 4 Good Knee Strength Knee Manual Muscle Testing Right Flexion (S2) 5 Normal Extension (L3) 5 Normal Left Flexion (S2) 5 Normal Extension (L3) 5 Normal Ankle/Foot Strength Ankle and Foot Manual Muscle Testing Right Dorsiflexion (L4) 4 Good Left Dorsiflexion (L4) 4 Good PT-OP-Q Treatments Start: 10/25/17 07:27 Freq: Status: Active Protocol: Document 01/09/18 11:18 ML (Rec: 01/09/18 11:31 ML [id number]) Cardio Equipment Elliptical Duration (Minutes) 6 Resistance 3 Gym Equipment Shuttle Recovery Unilateral Heel Raises Details flexed knee Resistance 37.5lbs Shuttle Recovery Platform Stable Reps/Time more on L than R Shuttle Balance 1 Details red clips Comments WBOS eyes open then closed, WBOS & tandem step w/both legs wt shifting, NBOS facing side wt shifting Therapeutic Exercises Standing Exercises 10 Standing Exercise Name gait press at wall Comments for post depression pelvis on L side Manual Therapy Treatment Joint Mobilizations 3 Joint hip Direction inf glide Body Position Supine Comments inc hip flex, CR, followed by stabilization exercise PT-OP-R Modalities Start: 10/25/17 07:27 Freq: Status: Active Protocol: Document 12/17/17 08:14 [facility] (Rec: 12/17/17 09:00 [facility] [id number]) Hot Pack/Cold Pack Treatment Cold Pack Location lumbar Patient Position Prone Treatment Duration (minutes) 10 PT-OP-T Assessment and Plan Start: 10/25/17 07:27 Freq: Status: Active Protocol: Document 01/09/18 11:18 ML (Rec: 01/09/18 11:31 ML [id number]) Physical Therapy Assessment Goals Three Impairment pain Custodial Goal (LTG) Pt will report no more than 2/ 10 LBP during the day. LTG Duration 01/25/18 Two Impairment muscle tightness Electrical And Instrument Mechanic Goal (LTG) Pt will have no tenderness to palpation in LB region LTG Duration 01/25/18 One Impairment Strength Short Term Goal (STG) Pt will be indep with HEP STG Duration 12/25/17 Electrical And Instrument Mechanic Goal (LTG) Pt will have 5/5 MMT for BLEs to allow improvement in movement to allow greater time on feet before pain. LTG Duration 01/25/18 Assessment Summary Assessment Pt showed improvement in his PF strength increasing his wt for the shuttle recovery. Pt's balance, ability to wt shift, and have body awareness were challenged on the shuttle balance today, and the pt showed significant improvement in ability through each exercise. Pt showed to have dec hip flex with wall gait exercise, but after mobilization showed significant inc in ROM. Pt was then instructed on stabilization exercise for the new ROM. Physical Therapy Plan Frequency and Duration Frequency of Treatment 2x/Week Duration of Treatment 2 months Plan of Care Start Date 12/24/17 Plan of Care End Date 02/23/18 Next Visit Focus/Plan Next Note Type Progress Note Next Visit Plan cont to challenge balance and wt shift (controlled lunge walking), assess ROM bilat of hip, check soft tissue, shuttle recovery heel raises
--- NOTE | 2018-02-03 12:58 | PT.OTN ---
Current Diagnoses Disease of spinal cord, unspecified (02/03/18) Spinal stenosis, lumbar region with neurogenic claudication (02/03/18) Other biomechanical lesions of lumbar region (02/03/18) Unspecified abnormalities of gait and mobility (02/03/18) Physical Therapy Treatment Note PT-OP-A Visit Information Start: 10/25/17 07:27 Freq: Status: Active Protocol: Document 02/03/18 09:08 ML (Rec: 02/03/18 10:01 ML [id number]) Out-Patient Physical Therapy Visit Information Visit Information Visit Type Treatment Note Visit Note 12 visits Visit Start Time 09:02 Visit Stop Time 09:47 Total Visit Minutes 45 Visit Number 09/01 Number of DISH NETWORK INSTALLER Visits 0 PT-OP-B Current Condition Start: 10/25/17 07:27 Freq: Status: Active Protocol: Document 12/05/17 11:21 [facility] (Rec: 12/05/17 17:31 [facility] [email or web address]) Current Condition History of Current Condition Onset Date couple months ago Current Complaints LBP w/radicular pain into post LEs History of Current Condition 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 A ton of neurological tests were done on him until they found central canal stenosis in his neck. Pt had ACDF C4-7 and laminectomies of C5-7. This slowed the progress of the weakness of LEs & gait difficulties. Pt reports about a couple months ago, he started to have LBP with pain down post thighs and calves. Reports he started to have an inc in difficulty of walking. He has pain with standing and walking and pain is getting worse with decreasing time pt can spend up before pain starts. He sits down to relieve pain and does not allow pain to get over 5/10. It takes a little while of sitting to have pain relief. Reports no other treatment has been done and PT is first treatment approach. MD referal states that if PT increases pain, pt is to return to MD & stop PT. UPDATE* -pt had L4-5 lami 11/04 and was cleared to start PT. Thinks he may have dec foot drop since surgery and back pain has improved but feels tight still. No lifting >10 lbs, limit twisting and bending Prior Treatments and Tests Pt had MRI of cervical, thoracic & lumbar vertebra. Reports are in chart with evidence of central canal narrowing in cervical & lumbar region. PT-OP-C Subjective Start: 10/25/17 07:27 Freq: Status: Active Protocol: Document 02/03/18 09:08 ML (Rec: 02/03/18 10:01 ML [id number]) OP-PT Subjective Patient Comments Patient Comments Pt reported that after his time traveling and sitting for long durations has caused his low back to feel stiff. PT-OP-F Manual Assessment Start: 10/25/17 07:27 Freq: Status: Active Protocol: Document 10/25/17 10:07 [facility] (Rec: 10/25/17 10:29 [facility] [email or web address]) Manual Assessments Soft Tissue Assessment Soft Tissue Mobility Assessment L>R QL tightness, B ES & HS tightness & R>L glute tightness Joint Mobility Assessment Joint Mobility Assessment With knee bend, pt has IR of R femur & ER of L with tibia neutral position and L ER. Pt has elevated R iliac crest with equal height greater trochanters. PT-OP-G Mobility & Gait Start: 10/25/17 07:27 Freq: Status: Active Protocol: Document 10/25/17 10:07 [facility] (Rec: 10/25/17 10:29 [facility] [email or web address]) OP Gait Assessment Comments Gait Comments Pt amb without AD with mild scissoring, knee hyperext and lateral leaning. Pt reports 1 fall in past year. PT-OP-K Range of Motion Start: 10/25/17 07:27 Freq: Status: Active Protocol: Document 10/25/17 10:07 [facility] (Rec: 10/25/17 10:29 [facility] [email or web address]) Lumbar Spine Range of Motion Lumbar Spine Active Degrees Testing Position standing Flexion 65 Extension 15 Lateral Flexion Left 25 Lateral Flexion Right 20 Comments tight with flex; about 75% L rotation & 60% R PT-OP-L Special Tests Start: 10/25/17 07:27 Freq: Status: Active Protocol: Document 10/25/17 10:07 [facility] (Rec: 10/25/17 10:29 [facility] [email or web address]) Special Tests Lumbar Spine Special Tests Straight Leg Raise Test Results neg B Slump Test Results postive R, Neg L PT-OP-M Strength Start: 10/25/17 07:27 Freq: Status: Active Protocol: Document 10/25/17 11:30 [facility] (Rec: 10/25/17 11:36 [facility] [email or web address]) Hip Strength Hip Manual Muscle Testing Right Flexion (L2) 4+ Good+ Extension (S1) 4 Good Abduction 4 Good External Rotation 4 Good Internal Rotation 4 Good Left Flexion (L2) 4+ Good+ Extension (S1) 4 Good Abduction 4 Good External Rotation 4 Good Internal Rotation 4 Good Knee Strength Knee Manual Muscle Testing Right Flexion (S2) 5 Normal Extension (L3) 5 Normal Left Flexion (S2) 5 Normal Extension (L3) 5 Normal Ankle/Foot Strength Ankle and Foot Manual Muscle Testing Right Dorsiflexion (L4) 4 Good Left Dorsiflexion (L4) 4 Good PT-OP-Q Treatments Start: 10/25/17 07:27 Freq: Status: Active Protocol: Document 02/03/18 09:08 ML (Rec: 02/03/18 10:01 ML [id number]) Cardio Equipment Elliptical Duration (Minutes) 6 Resistance 3 Gym Equipment Shuttle Recovery Unilateral Heel Raises Details flexed knee Resistance 25 & 37.5lbs Shuttle Recovery Platform Stable Reps/Time L; terminated due to clonus unable to be relieved Therapeutic Exercises Standing Exercises 11 Standing Exercise Name bottoms up stretch Comments for hamstrings and low back Manual Therapy Treatment Soft Tissue Mobilization 1 Body Location lumbar paraspinals & QL Mobilization Type Myofascial Release Rolling Intensity/Depth Superficial Body Position Prone Comments w/deep breathing Joint Mobilizations 2 Joint hip L Body Position Prone Comments IR, showed significant inc ROM 1 Joint sacrum Direction PA Body Position Prone Comments R inferior, w/knee flex bilat Self-Care/Home Management Treatment Education Patient Education Fall Risk Other Education Pt educated about icing in a lengthened position on his calfs to dec clonus PT-OP-R Modalities Start: 10/25/17 07:27 Freq: Status: Active Protocol: Document 12/17/17 08:14 [facility] (Rec: 12/17/17 09:00 [facility] [id number]) Hot Pack/Cold Pack Treatment Cold Pack Location lumbar Patient Position Prone Treatment Duration (minutes) 10 PT-OP-T Assessment and Plan Start: 10/25/17 07:27 Freq: Status: Active Protocol: Document 02/03/18 09:08 ML (Rec: 02/03/18 10:01 ML [id number]) Physical Therapy Assessment Goals Three Impairment pain Merchandise Flow Team Leader Goal (LTG) Pt will report no more than 2/ 10 LBP during the day. LTG Duration 01/25/18 Two Impairment muscle tightness [facility] Goal (LTG) Pt will have no tenderness to palpation in LB region LTG Duration 01/25/18 One Impairment Strength Short Term Goal (STG) Pt will be indep with HEP STG Duration 12/25/17 Merchandise Flow Team Leader Goal (LTG) Pt will have 5/5 MMT for BLEs to allow improvement in movement to allow greater time on feet before pain. LTG Duration 01/25/18 Assessment Summary Assessment Pt showed improvement in his ROM through mobilizations. Pt had more significant clonus today than he has had lately doing calf raises at home. Pt' s paraspinals were tight causing stiffness after travel , but improved with soft tissue mobilizations. Physical Therapy Plan Frequency and Duration Frequency of Treatment 2x/Week Duration of Treatment 2 months Plan of Care Start Date 12/24/17 Plan of Care End Date 02/23/18 Next Visit Focus/Plan Next Note Type Treatment Note Next Visit Plan cont to challenge balance and wt shift (controlled lunge walking), assess ROM bilat of hip, check soft tissue, shuttle recovery heel raises
--- NOTE | 2018-02-11 16:49 | PT.OTN ---
Current Diagnoses Disease of spinal cord, unspecified (02/11/18) Spinal stenosis, lumbar region with neurogenic claudication (02/11/18) Other biomechanical lesions of lumbar region (02/11/18) Unspecified abnormalities of gait and mobility (02/11/18) Physical Therapy Treatment Note PT-OP-A Visit Information Start: 10/25/17 07:27 Freq: Status: Active Protocol: Document 02/11/18 08:17 ML (Rec: 02/11/18 08:59 ML [id number]) Out-Patient Physical Therapy Visit Information Visit Information Visit Type Treatment Note Visit Note 13 visits Visit Start Time 08:15 Visit Stop Time 09:00 Total Visit Minutes 45 Visit Number 10/01 Number of PERSONALIZED LIVING ASSISTANT Visits 0 PT-OP-B Current Condition Start: 10/25/17 07:27 Freq: Status: Active Protocol: Document 12/05/17 11:21 [facility] (Rec: 12/05/17 17:31 [facility] [email or web address]) Current Condition History of Current Condition Onset Date couple months ago Current Complaints LBP w/radicular pain into post LEs History of Current Condition 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 A ton of neurological tests were done on him until they found central canal stenosis in his neck. Pt had ACDF C4-7 and laminectomies of C5-7. This slowed the progress of the weakness of LEs & gait difficulties. Pt reports about a couple months ago, he started to have LBP with pain down post thighs and calves. Reports he started to have an inc in difficulty of walking. He has pain with standing and walking and pain is getting worse with decreasing time pt can spend up before pain starts. He sits down to relieve pain and does not allow pain to get over 5/10. It takes a little while of sitting to have pain relief. Reports no other treatment has been done and PT is first treatment approach. MD referal states that if PT increases pain, pt is to return to MD & stop PT. UPDATE* -pt had L4-5 lami 11/04 and was cleared to start PT. Thinks he may have dec foot drop since surgery and back pain has improved but feels tight still. No lifting >10 lbs, limit twisting and bending Prior Treatments and Tests Pt had MRI of cervical, thoracic & lumbar vertebra. Reports are in chart with evidence of central canal narrowing in cervical & lumbar region. PT-OP-C Subjective Start: 10/25/17 07:27 Freq: Status: Active Protocol: Document 02/11/18 08:17 ML (Rec: 02/11/18 08:59 ML [id number]) OP-PT Subjective Patient Comments Patient Comments Pt reported that his low back is still bothering him, and that the stretch didn't really seem to relieve it despite doing it frequently. PT-OP-F Manual Assessment Start: 10/25/17 07:27 Freq: Status: Active Protocol: Document 10/25/17 10:07 [facility] (Rec: 10/25/17 10:29 [facility] [email or web address]) Manual Assessments Soft Tissue Assessment Soft Tissue Mobility Assessment L>R QL tightness, B ES & HS tightness & R>L glute tightness Joint Mobility Assessment Joint Mobility Assessment With knee bend, pt has IR of R femur & ER of L with tibia neutral position and L ER. Pt has elevated R iliac crest with equal height greater trochanters. PT-OP-G Mobility & Gait Start: 10/25/17 07:27 Freq: Status: Active Protocol: Document 10/25/17 10:07 [facility] (Rec: 10/25/17 10:29 [facility] [email or web address]) OP Gait Assessment Comments Gait Comments Pt amb without AD with mild scissoring, knee hyperext and lateral leaning. Pt reports 1 fall in past year. PT-OP-K Range of Motion Start: 10/25/17 07:27 Freq: Status: Active Protocol: Document 10/25/17 10:07 [facility] (Rec: 10/25/17 10:29 [facility] [email or web address]) Lumbar Spine Range of Motion Lumbar Spine Active Degrees Testing Position standing Flexion 65 Extension 15 Lateral Flexion Left 25 Lateral Flexion Right 20 Comments tight with flex; about 75% L rotation & 60% R PT-OP-L Special Tests Start: 10/25/17 07:27 Freq: Status: Active Protocol: Document 10/25/17 10:07 [facility] (Rec: 10/25/17 10:29 [facility] [email or web address]) Special Tests Lumbar Spine Special Tests Straight Leg Raise Test Results neg B Slump Test Results postive R, Neg L PT-OP-M Strength Start: 10/25/17 07:27 Freq: Status: Active Protocol: Document 10/25/17 11:30 [facility] (Rec: 10/25/17 11:36 [facility] [email or web address]) Hip Strength Hip Manual Muscle Testing Right Flexion (L2) 4+ Good+ Extension (S1) 4 Good Abduction 4 Good External Rotation 4 Good Internal Rotation 4 Good Left Flexion (L2) 4+ Good+ Extension (S1) 4 Good Abduction 4 Good External Rotation 4 Good Internal Rotation 4 Good Knee Strength Knee Manual Muscle Testing Right Flexion (S2) 5 Normal Extension (L3) 5 Normal Left Flexion (S2) 5 Normal Extension (L3) 5 Normal Ankle/Foot Strength Ankle and Foot Manual Muscle Testing Right Dorsiflexion (L4) 4 Good Left Dorsiflexion (L4) 4 Good PT-OP-Q Treatments Start: 10/25/17 07:27 Freq: Status: Active Protocol: Document 02/11/18 08:17 ML (Rec: 02/11/18 08:59 ML [id number]) Cardio Equipment Elliptical Duration (Minutes) 6 Resistance 4 Gym Equipment Shuttle Recovery Unilateral Heel Raises Details flexed knee Resistance 25 & 37.5lbs Shuttle Recovery Platform Stable Reps/Time L; terminated due to clonus unable to be relieved; tried bilat Shuttle Balance 1 Details red clips Comments wt shifting; WBOS, NBOS, mid tandem; fwd and side ways Therapeutic Exercises Standing Exercises 6 Standing Exercise Name calf raises Side bilateral Manual Therapy Treatment Soft Tissue Mobilization 1 Body Location lumbar paraspinals & QL Mobilization Type Myofascial Release Rolling Intensity/Depth Superficial Body Position Prone Joint Mobilizations 4 Joint iliac crest Direction caudal Body Position Prone Comments CR with knee flex/ext 3 Joint hip Direction inf glide Body Position Supine Comments inc hip flex, CR, bilat PT-OP-R Modalities Start: 10/25/17 07:27 Freq: Status: Active Protocol: Document 12/17/17 08:14 [facility] (Rec: 12/17/17 09:00 [facility] [id number]) Hot Pack/Cold Pack Treatment Cold Pack Location lumbar Patient Position Prone Treatment Duration (minutes) 10 PT-OP-T Assessment and Plan Start: 10/25/17 07:27 Freq: Status: Active Protocol: Document 02/11/18 08:17 ML (Rec: 02/11/18 08:59 ML [id number]) Physical Therapy Assessment Goals Three Impairment pain Gum Scoring Machine Operator Goal (LTG) Pt will report no more than 2/ 10 LBP during the day. LTG Duration 01/25/18 Two Impairment muscle tightness Gum Scoring Machine Operator Goal (LTG) Pt will have no tenderness to palpation in LB region LTG Duration 01/25/18 One Impairment Strength Short Term Goal (STG) Pt will be indep with HEP STG Duration 12/25/17 Gum Scoring Machine Operator Goal (LTG) Pt will have 5/5 MMT for BLEs to allow improvement in movement to allow greater time on feet before pain. LTG Duration 01/25/18 Assessment Summary Assessment Pt notes that his low back continues to hurt, R>L but in general is across his SI region. Pt's QL and lumbar paraspinals are tight, and his R iliac crest was elevated; both of which were addressed manually. Pt's hip flexion was lacking motion of inf hip glide which was addressed with inf glide of hip bilat. Pt was able to work on control of knee ext and wt shifting through the shuttle board activity today and was able to achieve it through repetition and cueing. Pt was unable to do heel raising exercise without excessive clonus, so it was attempted bilaterally and then terminated due to inability to relieve clonus even in standing. Discussed again with pt about icing calves in a lengthening position to reduce clonus. Physical Therapy Plan Frequency and Duration Frequency of Treatment 2x/Week Duration of Treatment 2 months Plan of Care Start Date 12/24/17 Plan of Care End Date 02/23/18 Next Visit Focus/Plan Next Note Type Treatment Note Next Visit Plan check LBP/hips, cont to challenge balance and wt shift (controlled lunge walking), assess ROM bilat of hip, check soft tissue, shuttle recovery heel raises, check icing
--- NOTE | 2018-02-18 16:47 | PT.OTN ---
Current Diagnoses Disease of spinal cord, unspecified (02/18/18) Spinal stenosis, lumbar region with neurogenic claudication (02/18/18) Other biomechanical lesions of lumbar region (02/18/18) Unspecified abnormalities of gait and mobility (02/18/18) Physical Therapy Treatment Note PT-OP-A Visit Information Start: 10/25/17 07:27 Freq: Status: Active Protocol: Document 02/18/18 08:16 ML (Rec: 02/18/18 09:01 ML [id number]) Out-Patient Physical Therapy Visit Information Visit Information Visit Type Progress Note Visit Note 14 visits Visit Start Time 08:15 Visit Stop Time 09:00 Total Visit Minutes 45 Visit Number 11/01 Number of DIPPER OPERATOR Visits 0 PT-OP-B Current Condition Start: 10/25/17 07:27 Freq: Status: Active Protocol: Document 12/05/17 11:21 [facility] (Rec: 12/05/17 17:31 [facility] [email or web address]) Current Condition History of Current Condition Onset Date couple months ago Current Complaints LBP w/radicular pain into post LEs History of Current Condition 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 A ton of neurological tests were done on him until they found central canal stenosis in his neck. Pt had ACDF C4-7 and laminectomies of C5-7. This slowed the progress of the weakness of LEs & gait difficulties. Pt reports about a couple months ago, he started to have LBP with pain down post thighs and calves. Reports he started to have an inc in difficulty of walking. He has pain with standing and walking and pain is getting worse with decreasing time pt can spend up before pain starts. He sits down to relieve pain and does not allow pain to get over 5/10. It takes a little while of sitting to have pain relief. Reports no other treatment has been done and PT is first treatment approach. MD referal states that if PT increases pain, pt is to return to MD & stop PT. UPDATE* -pt had L4-5 lami 11/04 and was cleared to start PT. Thinks he may have dec foot drop since surgery and back pain has improved but feels tight still. No lifting >10 lbs, limit twisting and bending Prior Treatments and Tests Pt had MRI of cervical, thoracic & lumbar vertebra. Reports are in chart with evidence of central canal narrowing in cervical & lumbar region. PT-OP-C Subjective Start: 10/25/17 07:27 Freq: Status: Active Protocol: Document 02/18/18 08:16 ML (Rec: 02/18/18 09:01 ML [id number]) OP-PT Subjective Patient Comments Patient Comments Pt notes that his LBP is better and he has a new rowing machine that has helped, along with what we have been doing here and stretching at home. PT-OP-D Balance Start: 10/25/17 09:03 Freq: Status: Active Protocol: Document 02/18/18 08:16 ML (Rec: 02/18/18 16:34 ML [email or web address]) Balance Tests Other Other Balance Tests Performed Functional Gait Assessment: PT-OP-F Manual Assessment Start: 10/25/17 07:27 Freq: Status: Active Protocol: Document 10/25/17 10:07 [facility] (Rec: 10/25/17 10:29 [facility] [email or web address]) Manual Assessments Soft Tissue Assessment Soft Tissue Mobility Assessment L>R QL tightness, B ES & HS tightness & R>L glute tightness Joint Mobility Assessment Joint Mobility Assessment With knee bend, pt has IR of R femur & ER of L with tibia neutral position and L ER. Pt has elevated R iliac crest with equal height greater trochanters. PT-OP-G Mobility & Gait Start: 10/25/17 07:27 Freq: Status: Active Protocol: Document 10/25/17 10:07 [facility] (Rec: 10/25/17 10:29 [facility] [email or web address]) OP Gait Assessment Comments Gait Comments Pt amb without AD with mild scissoring, knee hyperext and lateral leaning. Pt reports 1 fall in past year. PT-OP-J Posture/Palpation/Skin Start: 10/25/17 07:27 Freq: Status: Active Protocol: Document 02/18/18 08:16 ML (Rec: 02/18/18 09:01 ML [id number]) Palpation Assessment Location lumbar musculature Palpation Details mild tightness in paraspinals PT-OP-K Range of Motion Start: 10/25/17 07:27 Freq: Status: Active Protocol: Document 10/25/17 10:07 [facility] (Rec: 10/25/17 10:29 [facility] [email or web address]) Lumbar Spine Range of Motion Lumbar Spine Active Degrees Testing Position standing Flexion 65 Extension 15 Lateral Flexion Left 25 Lateral Flexion Right 20 Comments tight with flex; about 75% L rotation & 60% R PT-OP-L Special Tests Start: 10/25/17 07:27 Freq: Status: Active Protocol: Document 10/25/17 10:07 [facility] (Rec: 10/25/17 10:29 [facility] [email or web address]) Special Tests Lumbar Spine Special Tests Straight Leg Raise Test Results neg B Slump Test Results postive R, Neg L PT-OP-M Strength Start: 10/25/17 07:27 Freq: Status: Active Protocol: Document 02/18/18 08:16 ML (Rec: 02/18/18 09:01 ML [id number]) Hip Strength Hip Manual Muscle Testing Right Flexion (L2) 4+ Good+ Extension (S1) 4+ Good+ Abduction 4+ Good+ External Rotation 5 Normal Internal Rotation 4 Good Left Flexion (L2) 4+ Good+ Extension (S1) 4+ Good+ Abduction 4+ Good+ External Rotation 4+ Good+ Internal Rotation 4- Good- Ankle/Foot Strength Ankle and Foot Manual Muscle Testing Right Dorsiflexion (L4) 5 Normal Plantarflexion (S1) 5 Normal Left Dorsiflexion (L4) 4+ Good+ Plantarflexion (S1) 5 Normal Comments L side able to do pure PF in standing 20x with knee locked; unable to do full range PF with knee in a neutral position vs hyperextended PT-OP-Q Treatments Start: 10/25/17 07:27 Freq: Status: Active Protocol: Document 02/18/18 08:16 ML (Rec: 02/18/18 09:01 ML [id number]) Cardio Equipment Elliptical Duration (Minutes) 6 Resistance 4 Neuro Re-Education Treatment Balance Activities marching Details slow and controlled with hold in knee flex Comments cues for not locking standing leg and engaging core backward walking Equipment bar tandem walking Equipment bar Comments cues for not locking knees PT-OP-R Modalities Start: 10/25/17 07:27 Freq: Status: Active Protocol: Document 12/17/17 08:14 [facility] (Rec: 12/17/17 09:00 [facility] [id number]) Hot Pack/Cold Pack Treatment Cold Pack Location lumbar Patient Position Prone Treatment Duration (minutes) 10 PT-OP-T Assessment and Plan Start: 10/25/17 07:27 Freq: Status: Active Protocol: Document 02/18/18 08:16 ML (Rec: 02/18/18 09:01 ML [id number]) Physical Therapy Assessment Goals Four Impairment dec balance Short Term Goal (STG) Pt will achieve a 18/30 on FGA to improve balance through functional activities. STG Duration 03/20/18 Jail Goal (LTG) Pt will achieve a 22/30 on FGA to improve balance through functional activities. LTG Duration 04/20/18 Three Impairment pain Jail Goal (LTG) Pt will report no more than 2/ 10 LBP during the day. LTG Duration Achieved Two Impairment muscle tightness STG Duration Progressing - still some tightness of lumbar paraspinals but not QL [employer] Goal (LTG) Pt will have no tenderness to palpation in LB region LTG Duration 04/10/18 - Progressing One Impairment Strength Short Term Goal (STG) Pt will be indep with HEP STG Duration Achieved and continual Jail Goal (LTG) Pt will have 5/5 MMT for BLEs to allow improvement in movement to allow greater time on feet before pain. LTG Duration 04/20/18 - Progressing Assessment Summary Assessment Overall, pt's strength has improved, but was assessed for balance for an FGA in which he notes most difficulty through stairs and tandem walking. He has difficulty maintaining speed and balance through other activities of the FGA as well. Pt's pain has dec, although he still had some tightness in his lumbar paraspinals. Physical Therapy Plan Frequency and Duration Frequency of Treatment 2x/Week Duration of Treatment 2 months Plan of Care Start Date 02/18/18 Plan of Care End Date 04/20/18 Therapeutic Interventions Therapeutic Interventions Aquatic Therapy Balance Training Coordination Training Gait Training Home Exercise Program Joint Mobilizations Manual Therapy Neuromuscular Re-education Patient/Caregiver Education Self-Care/Home Management Soft Tissue Mobilization Taping Therapeutic Activities Therapeutic Exercises Modalities Cold Pack/Ice Massage Electric Stimulation Hot Packs Iontophoresis Ultrasound Next Visit Focus/Plan Next Note Type Treatment Note Next Visit Plan L LE muscle control for stairs and dec locking knee; check LBP/hips, cont to challenge balance and wt shift ( controlled lunge walking), assess ROM bilat of hip, check soft tissue, shuttle recovery heel raises, check icing
--- NOTE | 2018-02-18 16:47 | PT.OPPOC ---
Current Diagnoses Disease of spinal cord, unspecified (02/18/18) Spinal stenosis, lumbar region with neurogenic claudication (02/18/18) Other biomechanical lesions of lumbar region (02/18/18) Unspecified abnormalities of gait and mobility (02/18/18) Provider Visit Care Team Role Provider Type La Keith MD Primary Care Provider Non-Staff Specialty: Physical Medicine and Rehab Address: [facility] [address] [place], [address] Email: Nemesio Carlisle MD Attending Provider Physician Specialty: Family Practice Address: [address] [place] [address], [id number] Email: Plan Of Care PT-OP-T Assessment and Plan Start: 10/25/17 07:27 Freq: Status: Active Protocol: Document 02/18/18 08:16 ML (Rec: 02/18/18 09:01 ML [id number]) Physical Therapy Assessment Goals Four Impairment dec balance Short Term Goal (STG) Pt will achieve a 18/30 on FGA to improve balance through functional activities. STG Duration 03/20/18 Operating Table Assembler Goal (LTG) Pt will achieve a 22/30 on FGA to improve balance through functional activities. LTG Duration 04/20/18 Three Impairment pain Operating Table Assembler Goal (LTG) Pt will report no more than 2/ 10 LBP during the day. LTG Duration Achieved Two Impairment muscle tightness STG Duration Progressing - still some tightness of lumbar paraspinals but not QL Jail Goal (LTG) Pt will have no tenderness to palpation in LB region LTG Duration 04/10/18 - Progressing One Impairment Strength Short Term Goal (STG) Pt will be indep with HEP STG Duration Achieved and continual Jail Goal (LTG) Pt will have 5/5 MMT for BLEs to allow improvement in movement to allow greater time on feet before pain. LTG Duration 04/20/18 - Progressing Assessment Summary Assessment Overall, pt's strength has improved, but was assessed for balance for an FGA in which he notes most difficulty through stairs and tandem walking. He has difficulty maintaining speed and balance through other activities of the FGA as well. Pt's pain has dec, although he still had some tightness in his lumbar paraspinals. Physical Therapy Plan Frequency and Duration Frequency of Treatment 2x/Week Duration of Treatment 2 months Plan of Care Start Date 02/18/18 Plan of Care End Date 04/20/18 Therapeutic Interventions Therapeutic Interventions Aquatic Therapy Balance Training Coordination Training Gait Training Home Exercise Program Joint Mobilizations Manual Therapy Neuromuscular Re-education Patient/Caregiver Education Self-Care/Home Management Soft Tissue Mobilization Taping Therapeutic Activities Therapeutic Exercises Modalities Cold Pack/Ice Massage Electric Stimulation Hot Packs Iontophoresis Ultrasound Next Visit Focus/Plan Next Note Type Treatment Note Next Visit Plan L LE muscle control for stairs and dec locking knee; check LBP/hips, cont to challenge balance and wt shift ( controlled lunge walking), assess ROM bilat of hip, check soft tissue, shuttle recovery heel raises, check icing Plan of Care Dates Plan of Care Start Date 02/18/18 Plan of Care End Date 04/20/18 Please Sign and Return: I have reviewed this Plan of Care and certify that the skilled therapy services above are required to meet the patient?s needs. Physician Signature Date Printed Name and Credentials Clinical Instructor Signature Printed Name and Credentials
--- NOTE | 2018-02-25 08:59 | PT.OTN ---
Current Diagnoses Disease of spinal cord, unspecified (02/25/18) Spinal stenosis, lumbar region with neurogenic claudication (02/25/18) Other biomechanical lesions of lumbar region (02/25/18) Unspecified abnormalities of gait and mobility (02/25/18) Physical Therapy Treatment Note PT-OP-A Visit Information Start: 10/25/17 07:27 Freq: Status: Active Protocol: Document 02/25/18 08:10 [facility] (Rec: 02/25/18 08:59 [facility] [id number]) Out-Patient Physical Therapy Visit Information Visit Information Visit Type Treatment Note Visit Note 15 visits Visit Start Time 08:10 Visit Stop Time 08:50 Total Visit Minutes 40 Visit Number 2/10 Number of PC MAINTENANCE TECHNICIAN Visits 0 PT-OP-B Current Condition Start: 10/25/17 07:27 Freq: Status: Active Protocol: Document 12/05/17 11:21 [facility] (Rec: 12/05/17 17:31 [facility] [id number]) Current Condition History of Current Condition Onset Date couple months ago Current Complaints LBP w/radicular pain into post LEs History of Current Condition 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 A ton of neurological tests were done on him until they found central canal stenosis in his neck. Pt had ACDF C4-7 and laminectomies of C5-7. This slowed the progress of the weakness of LEs & gait difficulties. Pt reports about a couple months ago, he started to have LBP with pain down post thighs and calves. Reports he started to have an inc in difficulty of walking. He has pain with standing and walking and pain is getting worse with decreasing time pt can spend up before pain starts. He sits down to relieve pain and does not allow pain to get over 5/10. It takes a little while of sitting to have pain relief. Reports no other treatment has been done and PT is first treatment approach. MD referal states that if PT increases pain, pt is to return to MD & stop PT. UPDATE* -pt had L4-5 lami 11/04 and was cleared to start PT. Thinks he may have dec foot drop since surgery and back pain has improved but feels tight still. No lifting >10 lbs, limit twisting and bending Prior Treatments and Tests Pt had MRI of cervical, thoracic & lumbar vertebra. Reports are in chart with evidence of central canal narrowing in cervical & lumbar region. PT-OP-C Subjective Start: 10/25/17 07:27 Freq: Status: Active Protocol: Document 02/25/18 08:10 [facility] (Rec: 02/25/18 08:59 [facility] [id number]) OP-PT Subjective Patient Comments Patient Comments Pt reports stiffness in back after long car ride yesterday. Tightness after walking on his vacation but he could relieve with stretching. PT-OP-D Balance Start: 10/25/17 09:03 Freq: Status: Active Protocol: Document 02/18/18 08:16 [facility] (Rec: 02/18/18 16:34 [facility] [email or web address]) Balance Tests Other Other Balance Tests Performed Functional Gait Assessment: PT-OP-F Manual Assessment Start: 10/25/17 07:27 Freq: Status: Active Protocol: Document 10/25/17 10:07 [facility] (Rec: 10/25/17 10:29 [facility] [email or web address]) Manual Assessments Soft Tissue Assessment Soft Tissue Mobility Assessment L>R QL tightness, B ES & HS tightness & R>L glute tightness Joint Mobility Assessment Joint Mobility Assessment With knee bend, pt has IR of R femur & ER of L with tibia neutral position and L ER. Pt has elevated R iliac crest with equal height greater trochanters. PT-OP-G Mobility & Gait Start: 10/25/17 07:27 Freq: Status: Active Protocol: Document 10/25/17 10:07 [facility] (Rec: 10/25/17 10:29 [facility] [email or web address]) OP Gait Assessment Comments Gait Comments Pt amb without AD with mild scissoring, knee hyperext and lateral leaning. Pt reports 1 fall in past year. PT-OP-J Posture/Palpation/Skin Start: 10/25/17 07:27 Freq: Status: Active Protocol: Document 02/18/18 08:16 ML (Rec: 02/18/18 09:01 ML [id number]) Palpation Assessment Location lumbar musculature Palpation Details mild tightness in paraspinals PT-OP-K Range of Motion Start: 10/25/17 07:27 Freq: Status: Active Protocol: Document 10/25/17 10:07 [facility] (Rec: 10/25/17 10:29 [facility] [email or web address]) Lumbar Spine Range of Motion Lumbar Spine Active Degrees Testing Position standing Flexion 65 Extension 15 Lateral Flexion Left 25 Lateral Flexion Right 20 Comments tight with flex; about 75% L rotation & 60% R PT-OP-L Special Tests Start: 10/25/17 07:27 Freq: Status: Active Protocol: Document 10/25/17 10:07 [facility] (Rec: 10/25/17 10:29 [facility] [email or web address]) Special Tests Lumbar Spine Special Tests Straight Leg Raise Test Results neg B Slump Test Results postive R, Neg L PT-OP-M Strength Start: 10/25/17 07:27 Freq: Status: Active Protocol: Document 02/18/18 08:16 ML (Rec: 02/18/18 09:01 ML [id number]) Hip Strength Hip Manual Muscle Testing Right Flexion (L2) 4+ Good+ Extension (S1) 4+ Good+ Abduction 4+ Good+ External Rotation 5 Normal Internal Rotation 4 Good Left Flexion (L2) 4+ Good+ Extension (S1) 4+ Good+ Abduction 4+ Good+ External Rotation 4+ Good+ Internal Rotation 4- Good- Ankle/Foot Strength Ankle and Foot Manual Muscle Testing Right Dorsiflexion (L4) 5 Normal Plantarflexion (S1) 5 Normal Left Dorsiflexion (L4) 4+ Good+ Plantarflexion (S1) 5 Normal Comments L side able to do pure PF in standing 20x with knee locked; unable to do full range PF with knee in a neutral position vs hyperextended PT-OP-Q Treatments Start: 10/25/17 07:27 Freq: Status: Active Protocol: Document 02/25/18 08:10 [facility] (Rec: 02/25/18 08:59 [facility] [id number]) Cardio Equipment Elliptical Duration (Minutes) 6 Resistance 4 Therapeutic Exercises Sitting Exercises controlled flex Sitting Exercise Name flex by vertebrae with 20 sec hold & ext by vertebrae Standing Exercises 11 Standing Exercise Name calf raises Side bilateral Reps/Minutes 10 10 Standing Exercise Name fwd wt shift into BLEs w/out knee locking Gait Training Gait Activity ant elevation Description ant elevation Comments assist via pants slow controlled Description working on gait Comments slow gait with focus on push off and avoiding rotational movement Manual Therapy Treatment Soft Tissue Mobilization 1 Body Location lumbar paraspinals & QL Mobilization Type Myofascial Release Rolling Intensity/Depth Superficial Body Position Prone Comments prone & quadruped PT-OP-R Modalities Start: 10/25/17 07:27 Freq: Status: Active Protocol: Document 12/17/17 08:14 [facility] (Rec: 12/17/17 09:00 [facility] [id number]) Hot Pack/Cold Pack Treatment Cold Pack Location lumbar Patient Position Prone Treatment Duration (minutes) 10 PT-OP-T Assessment and Plan Start: 10/25/17 07:27 Freq: Status: Active Protocol: Document 02/25/18 08:10 [facility] (Rec: 02/25/18 08:59 [facility] [id number]) Physical Therapy Assessment Goals Four Impairment dec balance Short Term Goal (STG) Pt will achieve a 18/30 on FGA to improve balance through functional activities. STG Duration 03/20/18 Fpc Goal (LTG) Pt will achieve a 22/30 on FGA to improve balance through functional activities. LTG Duration 04/20/18 Three Impairment pain Veneer Department Manager Goal (LTG) Pt will report no more than 2/ 10 LBP during the day. LTG Duration Achieved Two Impairment muscle tightness STG Duration Progressing - still some tightness of lumbar paraspinals but not QL Fpc Goal (LTG) Pt will have no tenderness to palpation in LB region LTG Duration 04/10/18 - Progressing One Impairment Strength Short Term Goal (STG) Pt will be indep with HEP STG Duration Achieved and continual Fpc Goal (LTG) Pt will have 5/5 MMT for BLEs to allow improvement in movement to allow greater time on feet before pain. LTG Duration 04/20/18 - Progressing Assessment Summary Assessment Pt able to control rotational movement with gait. He cont to work on home program to control his movements. Physical Therapy Plan Frequency and Duration Frequency of Treatment 2x/Week Duration of Treatment 2 months Plan of Care Start Date 02/18/18 Plan of Care End Date 04/20/18 Next Visit Focus/Plan Next Note Type Treatment Note Next Visit Plan stairs, work on ant elevation L side PNF; progress gait speed
--- NOTE | 2018-03-11 09:01 | PT.OTN ---
Current Diagnoses Disease of spinal cord, unspecified (03/11/18) Spinal stenosis, lumbar region with neurogenic claudication (03/11/18) Other biomechanical lesions of lumbar region (03/11/18) Unspecified abnormalities of gait and mobility (03/11/18) Physical Therapy Treatment Note PT-OP-A Visit Information Start: 10/25/17 07:27 Freq: Status: Active Protocol: Document 03/11/18 08:20 [facility] (Rec: 03/11/18 09:01 [facility] [id number]) Out-Patient Physical Therapy Visit Information Visit Information Visit Type Treatment Note Visit Note 16 visits Visit Start Time 08:15 Visit Stop Time 08:55 Total Visit Minutes 40 Visit Number 3/10 Number of ANODE REBUILDER Visits 0 PT-OP-B Current Condition Start: 10/25/17 07:27 Freq: Status: Active Protocol: Document 12/05/17 11:21 [facility] (Rec: 12/05/17 17:31 [facility] [email or web address]) Current Condition History of Current Condition Onset Date couple months ago Current Complaints LBP w/radicular pain into post LEs History of Current Condition 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 A ton of neurological tests were done on him until they found central canal stenosis in his neck. Pt had ACDF C4-7 and laminectomies of C5-7. This slowed the progress of the weakness of LEs & gait difficulties. Pt reports about a couple months ago, he started to have LBP with pain down post thighs and calves. Reports he started to have an inc in difficulty of walking. He has pain with standing and walking and pain is getting worse with decreasing time pt can spend up before pain starts. He sits down to relieve pain and does not allow pain to get over 5/10. It takes a little while of sitting to have pain relief. Reports no other treatment has been done and PT is first treatment approach. MD referal states that if PT increases pain, pt is to return to MD & stop PT. UPDATE* -pt had L4-5 lami 11/04 and was cleared to start PT. Thinks he may have dec foot drop since surgery and back pain has improved but feels tight still. No lifting >10 lbs, limit twisting and bending Prior Treatments and Tests Pt had MRI of cervical, thoracic & lumbar vertebra. Reports are in chart with evidence of central canal narrowing in cervical & lumbar region. PT-OP-C Subjective Start: 10/25/17 07:27 Freq: Status: Active Protocol: Document 03/11/18 08:20 [facility] (Rec: 03/11/18 09:01 [facility] [id number]) OP-PT Subjective Patient Comments Patient Comments Reports back feels okay since he has been rowing almost every day for 30 -40 min daily . PT-OP-D Balance Start: 10/25/17 09:03 Freq: Status: Active Protocol: Document 02/18/18 08:16 [facility] (Rec: 02/18/18 16:34 [facility] [email or web address]) Balance Tests Other Other Balance Tests Performed Functional Gait Assessment: PT-OP-F Manual Assessment Start: 10/25/17 07:27 Freq: Status: Active Protocol: Document 10/25/17 10:07 [facility] (Rec: 10/25/17 10:29 [facility] [email or web address]) Manual Assessments Soft Tissue Assessment Soft Tissue Mobility Assessment L>R QL tightness, B ES & HS tightness & R>L glute tightness Joint Mobility Assessment Joint Mobility Assessment With knee bend, pt has IR of R femur & ER of L with tibia neutral position and L ER. Pt has elevated R iliac crest with equal height greater trochanters. PT-OP-G Mobility & Gait Start: 10/25/17 07:27 Freq: Status: Active Protocol: Document 10/25/17 10:07 [facility] (Rec: 10/25/17 10:29 [facility] [email or web address]) OP Gait Assessment Comments Gait Comments Pt amb without AD with mild scissoring, knee hyperext and lateral leaning. Pt reports 1 fall in past year. PT-OP-J Posture/Palpation/Skin Start: 10/25/17 07:27 Freq: Status: Active Protocol: Document 02/18/18 08:16 [facility] (Rec: 02/18/18 09:01 ML [id number]) Palpation Assessment Location lumbar musculature Palpation Details mild tightness in paraspinals PT-OP-K Range of Motion Start: 10/25/17 07:27 Freq: Status: Active Protocol: Document 10/25/17 10:07 [facility] (Rec: 10/25/17 10:29 [facility] [email or web address]) Lumbar Spine Range of Motion Lumbar Spine Active Degrees Testing Position standing Flexion 65 Extension 15 Lateral Flexion Left 25 Lateral Flexion Right 20 Comments tight with flex; about 75% L rotation & 60% R PT-OP-L Special Tests Start: 10/25/17 07:27 Freq: Status: Active Protocol: Document 10/25/17 10:07 [facility] (Rec: 10/25/17 10:29 [facility] [email or web address]) Special Tests Lumbar Spine Special Tests Straight Leg Raise Test Results neg B Slump Test Results postive R, Neg L PT-OP-M Strength Start: 10/25/17 07:27 Freq: Status: Active Protocol: Document 02/18/18 08:16 [facility] (Rec: 02/18/18 09:01 ML [id number]) Hip Strength Hip Manual Muscle Testing Right Flexion (L2) 4+ Good+ Extension (S1) 4+ Good+ Abduction 4+ Good+ External Rotation 5 Normal Internal Rotation 4 Good Left Flexion (L2) 4+ Good+ Extension (S1) 4+ Good+ Abduction 4+ Good+ External Rotation 4+ Good+ Internal Rotation 4- Good- Ankle/Foot Strength Ankle and Foot Manual Muscle Testing Right Dorsiflexion (L4) 5 Normal Plantarflexion (S1) 5 Normal Left Dorsiflexion (L4) 4+ Good+ Plantarflexion (S1) 5 Normal Comments L side able to do pure PF in standing 20x with knee locked; unable to do full range PF with knee in a neutral position vs hyperextended PT-OP-Q Treatments Start: 10/25/17 07:27 Freq: Status: Active Protocol: Document 03/11/18 08:20 [facility] (Rec: 03/11/18 09:01 [facility] [id number]) Cardio Equipment Elliptical Duration (Minutes) 6 Resistance 4 Therapeutic Exercises Standing Exercises 10 Standing Exercise Name lunges Reps/Minutes 20ft 9 Standing Exercise Name single leg squats Reps/Minutes 20 Comments mirror Gait Training Gait Activity stairs Description 6 in step Comments up/down 6 in step in mirror focus on core then reciprocal up and down without rail with focus on core. slow controlled Description working on gait Comments slow gait with focus on push off and avoiding rotational movement & improved arm swing Neuro Re-Education Treatment Balance Activities staggered stance Details eyes closed backward walking Equipment bar prn Comments eyes closed 2 Details SLS with alt knee drive Comments in mirror w/focus on position 1 Details fwd walking eyese closed PT-OP-R Modalities Start: 10/25/17 07:27 Freq: Status: Active Protocol: Document 12/17/17 08:14 [facility] (Rec: 12/17/17 09:00 [facility] [id number]) Hot Pack/Cold Pack Treatment Cold Pack Location lumbar Patient Position Prone Treatment Duration (minutes) 10 PT-OP-T Assessment and Plan Start: 10/25/17 07:27 Freq: Status: Active Protocol: Document 03/11/18 08:20 [facility] (Rec: 03/11/18 09:01 [facility] [id number]) Physical Therapy Assessment Goals Four Impairment dec balance Short Term Goal (STG) Pt will achieve a 18/30 on FGA to improve balance through functional activities. STG Duration 03/20/18 Homogenizer Operator Goal (LTG) Pt will achieve a 22/30 on FGA to improve balance through functional activities. LTG Duration 04/20/18 Three Impairment pain Homogenizer Operator Goal (LTG) Pt will report no more than 2/ 10 LBP during the day. LTG Duration Achieved Two Impairment muscle tightness STG Duration Progressing - still some tightness of lumbar paraspinals but not QL Mcfp Goal (LTG) Pt will have no tenderness to palpation in LB region LTG Duration 04/10/18 - Progressing One Impairment Strength Short Term Goal (STG) Pt will be indep with HEP STG Duration Achieved and continual Mcfp Goal (LTG) Pt will have 5/5 MMT for BLEs to allow improvement in movement to allow greater time on feet before pain. LTG Duration 04/20/18 - Progressing Assessment Summary Assessment Pt was able to improve gait speed and control with inc use of UEs during gait. Improved stairs with cueing for core & use of mirror. Physical Therapy Plan Frequency and Duration Frequency of Treatment 2x/Week Duration of Treatment 2 months Plan of Care Start Date 02/18/18 Plan of Care End Date 04/20/18 Next Visit Focus/Plan Next Note Type Treatment Note Next Visit Plan stairs & eyes closed & NBOS balance
--- NOTE | 2018-03-24 09:46 | PT.OTN ---
Current Diagnoses Disease of spinal cord, unspecified (03/24/18) Spinal stenosis, lumbar region with neurogenic claudication (03/24/18) Other biomechanical lesions of lumbar region (03/24/18) Unspecified abnormalities of gait and mobility (03/24/18) Physical Therapy Treatment Note PT-OP-A Visit Information Start: 10/25/17 07:27 Freq: Status: Active Protocol: Document 03/24/18 09:06 [facility] (Rec: 03/24/18 09:46 [facility] [id number]) Out-Patient Physical Therapy Visit Information Visit Information Visit Type Treatment Note Visit Note 17 visits Visit Start Time 09:00 Visit Stop Time 09:40 Total Visit Minutes 40 Visit Number 4/10 Number of COUNCIL ON AGING DIRECTOR Visits 0 PT-OP-B Current Condition Start: 10/25/17 07:27 Freq: Status: Active Protocol: Document 12/05/17 11:21 [facility] (Rec: 12/05/17 17:31 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 A ton of neurological tests were done on him until they found central canal stenosis in his neck. Pt had ACDF C4-7 and laminectomies of C5-7. This slowed the progress of the weakness of LEs & gait difficulties. Pt reports about a couple months ago, he started to have LBP with pain down post thighs and calves. Reports he started to have an inc in difficulty of walking. He has pain with standing and walking and pain is getting worse with decreasing time pt can spend up before pain starts. He sits down to relieve pain and does not allow pain to get over 5/10. It takes a little while of sitting to have pain relief. Reports no other treatment has been done and PT is first treatment approach. MD referal states that if PT increases pain, pt is to return to MD & stop PT. UPDATE* -pt had L4-5 lami 11/04 and was cleared to start PT. Thinks he may have dec foot drop since surgery and back pain has improved but feels tight still. No lifting >10 lbs, limit twisting and bending Prior Treatments and Tests Pt had MRI of cervical, thoracic & lumbar vertebra. Reports are in chart with evidence of central canal narrowing in cervical & lumbar region. PT-OP-C Subjective Start: 10/25/17 07:27 Freq: Status: Active Protocol: Document 03/24/18 09:06 [facility] (Rec: 03/24/18 09:46 [facility] [id number]) OP-PT Subjective Patient Comments Patient Comments Reports back has been doing pretty good. PT-OP-D Balance Start: 10/25/17 09:03 Freq: Status: Active Protocol: Document 02/18/18 08:16 ML (Rec: 02/18/18 16:34 ML [id number]) Balance Tests Other Other Balance Tests Performed Functional Gait Assessment: PT-OP-F Manual Assessment Start: 10/25/17 07:27 Freq: Status: Active Protocol: Document 10/25/17 10:07 [facility] (Rec: 10/25/17 10:29 [facility] [id number]) Manual Assessments Soft Tissue Assessment Soft Tissue Mobility Assessment L>R QL tightness, B ES & HS tightness & R>L glute tightness Joint Mobility Assessment Joint Mobility Assessment With knee bend, pt has IR of R femur & ER of L with tibia neutral position and L ER. Pt has elevated R iliac crest with equal height greater trochanters. PT-OP-G Mobility & Gait Start: 10/25/17 07:27 Freq: Status: Active Protocol: Document 10/25/17 10:07 [facility] (Rec: 10/25/17 10:29 [facility] [id number]) OP Gait Assessment Comments Gait Comments Pt amb without AD with mild scissoring, knee hyperext and lateral leaning. Pt reports 1 fall in past year. PT-OP-J Posture/Palpation/Skin Start: 10/25/17 07:27 Freq: Status: Active Protocol: Document 02/18/18 08:16 ML (Rec: 02/18/18 09:01 ML [id number]) Palpation Assessment Location lumbar musculature Palpation Details mild tightness in paraspinals PT-OP-K Range of Motion Start: 10/25/17 07:27 Freq: Status: Active Protocol: Document 10/25/17 10:07 [facility] (Rec: 10/25/17 10:29 [facility] [id number]) Lumbar Spine Range of Motion Lumbar Spine Active Degrees Testing Position standing Flexion 65 Extension 15 Lateral Flexion Left 25 Lateral Flexion Right 20 Comments tight with flex; about 75% L rotation & 60% R PT-OP-L Special Tests Start: 10/25/17 07:27 Freq: Status: Active Protocol: Document 10/25/17 10:07 [facility] (Rec: 10/25/17 10:29 [facility] [id number]) Special Tests Lumbar Spine Special Tests Straight Leg Raise Test Results neg B Slump Test Results postive R, Neg L PT-OP-M Strength Start: 10/25/17 07:27 Freq: Status: Active Protocol: Document 02/18/18 08:16 ML (Rec: 02/18/18 09:01 ML [id number]) Hip Strength Hip Manual Muscle Testing Right Flexion (L2) 4+ Good+ Extension (S1) 4+ Good+ Abduction 4+ Good+ External Rotation 5 Normal Internal Rotation 4 Good Left Flexion (L2) 4+ Good+ Extension (S1) 4+ Good+ Abduction 4+ Good+ External Rotation 4+ Good+ Internal Rotation 4- Good- Ankle/Foot Strength Ankle and Foot Manual Muscle Testing Right Dorsiflexion (L4) 5 Normal Plantarflexion (S1) 5 Normal Left Dorsiflexion (L4) 4+ Good+ Plantarflexion (S1) 5 Normal Comments L side able to do pure PF in standing 20x with knee locked; unable to do full range PF with knee in a neutral position vs hyperextended PT-OP-Q Treatments Start: 10/25/17 07:27 Freq: Status: Active Protocol: Document 03/24/18 09:06 [facility] (Rec: 03/24/18 09:46 [facility] [id number]) Cardio Equipment Elliptical Duration (Minutes) 6 Resistance 4 Therapeutic Exercises Standing Exercises 10 Standing Exercise Name lunges Reps/Minutes 20ftx6 9 Standing Exercise Name single leg squats Reps/Minutes 20 Comments mirror 8 Standing Exercise Name step downs 5 in step in mirror Reps/Minutes 5 7 Standing Exercise Name up 6 in steps then down 4 in step w/core focus Neuro Re-Education Treatment Balance Activities hurdles Details hurdles Comments all 6, 1 foot length apart x 6 reps, 2 with about 6 ft apart x6 reps staggered stance Details staggered stance Comments head turns, head turns on blue tpads, eyes closed marching Details slow and controlled with hold in knee flex Equipment mirror Comments cues for not locking standing leg and engaging core backward walking Equipment bar prn Reps/Duration 4x20ft Comments eyes closed tandem walking Equipment bar Comments cues for not locking knees 2 Details walking with head turns Reps/Duration 40ft x8 Comments vertical & horizontal 1 Details fwd walking eyese closed PT-OP-R Modalities Start: 10/25/17 07:27 Freq: Status: Active Protocol: Document 12/17/17 08:14 [facility] (Rec: 12/17/17 09:00 [facility] [id number]) Hot Pack/Cold Pack Treatment Cold Pack Location lumbar Patient Position Prone Treatment Duration (minutes) 10 PT-OP-T Assessment and Plan Start: 10/25/17 07:27 Freq: Status: Active Protocol: Document 03/24/18 09:06 [facility] (Rec: 03/24/18 09:46 [facility] [id number]) Physical Therapy Assessment Goals Four Impairment dec balance Short Term Goal (STG) Pt will achieve a 18/30 on FGA to improve balance through functional activities. STG Duration 03/20/18 Custodial Goal (LTG) Pt will achieve a 22/30 on FGA to improve balance through functional activities. LTG Duration 04/20/18 Three Impairment pain Custodial Goal (LTG) Pt will report no more than 2/ 10 LBP during the day. LTG Duration Achieved Two Impairment muscle tightness STG Duration Progressing - still some tightness of lumbar paraspinals but not QL Custodial Goal (LTG) Pt will have no tenderness to palpation in LB region LTG Duration 04/10/18 - Progressing One Impairment Strength Short Term Goal (STG) Pt will be indep with HEP STG Duration Achieved and continual Custodial Goal (LTG) Pt will have 5/5 MMT for BLEs to allow improvement in movement to allow greater time on feet before pain. LTG Duration 04/20/18 - Progressing Assessment Summary Assessment Pt did not have difficulty with turning his head in a static position, but did have difficulty with inc knee hyperext with horizontal head turns. Physical Therapy Plan Frequency and Duration Frequency of Treatment 2x/Week Duration of Treatment 2 months Plan of Care Start Date 02/18/18 Plan of Care End Date 04/20/18 Next Visit Focus/Plan Next Note Type Treatment Note Next Visit Plan Dynamic movements w/head turns
--- NOTE | 2018-03-31 08:57 | PT.OTN ---
Current Diagnoses Disease of spinal cord, unspecified (03/31/18) Spinal stenosis, lumbar region with neurogenic claudication (03/31/18) Other biomechanical lesions of lumbar region (03/31/18) Unspecified abnormalities of gait and mobility (03/31/18) Physical Therapy Treatment Note PT-OP-A Visit Information Start: 10/25/17 07:27 Freq: Status: Active Protocol: Document 03/31/18 08:19 [facility] (Rec: 03/31/18 08:56 [facility] [id number]) Out-Patient Physical Therapy Visit Information Visit Information Visit Type Treatment Note Visit Note 18 visits Visit Start Time 08:15 Visit Stop Time 08:55 Total Visit Minutes 40 Visit Number 5/10 Number of MANAGER ADVANCED Visits 0 PT-OP-B Current Condition Start: 10/25/17 07:27 Freq: Status: Active Protocol: Document 12/05/17 11:21 [facility] (Rec: 12/05/17 17:31 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 A ton of neurological tests were done on him until they found central canal stenosis in his neck. Pt had ACDF C4-7 and laminectomies of C5-7. This slowed the progress of the weakness of LEs & gait difficulties. Pt reports about a couple months ago, he started to have LBP with pain down post thighs and calves. Reports he started to have an inc in difficulty of walking. He has pain with standing and walking and pain is getting worse with decreasing time pt can spend up before pain starts. He sits down to relieve pain and does not allow pain to get over 5/10. It takes a little while of sitting to have pain relief. Reports no other treatment has been done and PT is first treatment approach. MD referal states that if PT increases pain, pt is to return to MD & stop PT. UPDATE* -pt had L4-5 lami 11/04 and was cleared to start PT. Thinks he may have dec foot drop since surgery and back pain has improved but feels tight still. No lifting >10 lbs, limit twisting and bending Prior Treatments and Tests Pt had MRI of cervical, thoracic & lumbar vertebra. Reports are in chart with evidence of central canal narrowing in cervical & lumbar region. PT-OP-C Subjective Start: 10/25/17 07:27 Freq: Status: Active Protocol: Document 03/31/18 08:19 [facility] (Rec: 03/31/18 08:56 [facility] [id number]) OP-PT Subjective Patient Comments Patient Comments Pt reports he was working on building a boat bent over this weekend so his back is a little sore. PT-OP-D Balance Start: 10/25/17 09:03 Freq: Status: Active Protocol: Document 02/18/18 08:16 ML (Rec: 02/18/18 16:34 ML [id number]) Balance Tests Other Other Balance Tests Performed Functional Gait Assessment: PT-OP-F Manual Assessment Start: 10/25/17 07:27 Freq: Status: Active Protocol: Document 10/25/17 10:07 [facility] (Rec: 10/25/17 10:29 [facility] [id number]) Manual Assessments Soft Tissue Assessment Soft Tissue Mobility Assessment L>R QL tightness, B ES & HS tightness & R>L glute tightness Joint Mobility Assessment Joint Mobility Assessment With knee bend, pt has IR of R femur & ER of L with tibia neutral position and L ER. Pt has elevated R iliac crest with equal height greater trochanters. PT-OP-G Mobility & Gait Start: 10/25/17 07:27 Freq: Status: Active Protocol: Document 10/25/17 10:07 [facility] (Rec: 10/25/17 10:29 [facility] [id number]) OP Gait Assessment Comments Gait Comments Pt amb without AD with mild scissoring, knee hyperext and lateral leaning. Pt reports 1 fall in past year. PT-OP-J Posture/Palpation/Skin Start: 10/25/17 07:27 Freq: Status: Active Protocol: Document 02/18/18 08:16 ML (Rec: 02/18/18 09:01 ML [id number]) Palpation Assessment Location lumbar musculature Palpation Details mild tightness in paraspinals PT-OP-K Range of Motion Start: 10/25/17 07:27 Freq: Status: Active Protocol: Document 10/25/17 10:07 [facility] (Rec: 10/25/17 10:29 [facility] [id number]) Lumbar Spine Range of Motion Lumbar Spine Active Degrees Testing Position standing Flexion 65 Extension 15 Lateral Flexion Left 25 Lateral Flexion Right 20 Comments tight with flex; about 75% L rotation & 60% R PT-OP-L Special Tests Start: 10/25/17 07:27 Freq: Status: Active Protocol: Document 10/25/17 10:07 [facility] (Rec: 10/25/17 10:29 [facility] [id number]) Special Tests Lumbar Spine Special Tests Straight Leg Raise Test Results neg B Slump Test Results postive R, Neg L PT-OP-M Strength Start: 10/25/17 07:27 Freq: Status: Active Protocol: Document 02/18/18 08:16 ML (Rec: 02/18/18 09:01 ML [id number]) Hip Strength Hip Manual Muscle Testing Right Flexion (L2) 4+ Good+ Extension (S1) 4+ Good+ Abduction 4+ Good+ External Rotation 5 Normal Internal Rotation 4 Good Left Flexion (L2) 4+ Good+ Extension (S1) 4+ Good+ Abduction 4+ Good+ External Rotation 4+ Good+ Internal Rotation 4- Good- Ankle/Foot Strength Ankle and Foot Manual Muscle Testing Right Dorsiflexion (L4) 5 Normal Plantarflexion (S1) 5 Normal Left Dorsiflexion (L4) 4+ Good+ Plantarflexion (S1) 5 Normal Comments L side able to do pure PF in standing 20x with knee locked; unable to do full range PF with knee in a neutral position vs hyperextended PT-OP-Q Treatments Start: 10/25/17 07:27 Freq: Status: Active Protocol: Document 03/31/18 08:19 [facility] (Rec: 03/31/18 08:56 [facility] [id number]) Cardio Equipment Elliptical Duration (Minutes) 6 Resistance 5 Therapeutic Exercises Standing Exercises 6 Standing Exercise Name sidesteps Equipment Used yellow Reps/Minutes 2x20ft Therapeutic Activity Therapeutic Activity working Comments hip hinge for working on boat Manual Therapy Treatment Soft Tissue Mobilization 1 Body Location lumbar paraspinals & QL Mobilization Type Myofascial Release Rolling Intensity/Depth Superficial Body Position Prone Comments prone & quadruped Neuro Re-Education Treatment Balance Activities hurdles Details hurdles Comments all 6, 1 foot length apart x 6 reps, 2 with about 6 ft apart x6 reps marching Details slow and controlled with hold in knee flex Reps/Duration 3x20ft Comments cues for not locking standing leg and engaging core backward walking Reps/Duration 3x20ft Comments focus on long strides 2 Details walking with head turns Reps/Duration 40ft x3 Comments vertical & horizontal & diagonal fwd and backwards 1 Details fwd walking eyese closed PT-OP-R Modalities Start: 10/25/17 07:27 Freq: Status: Active Protocol: Document 12/17/17 08:14 [facility] (Rec: 12/17/17 09:00 [facility] [id number]) Hot Pack/Cold Pack Treatment Cold Pack Location lumbar Patient Position Prone Treatment Duration (minutes) 10 PT-OP-T Assessment and Plan Start: 10/25/17 07:27 Freq: Status: Active Protocol: Document 03/31/18 08:19 [facility] (Rec: 03/31/18 08:56 [facility] [id number]) Physical Therapy Assessment Goals Four Impairment dec balance Short Term Goal (STG) Pt will achieve a 18/30 on FGA to improve balance through functional activities. STG Duration 03/20/18 Personnel Technician Goal (LTG) Pt will achieve a 22/30 on FGA to improve balance through functional activities. LTG Duration 04/20/18 Three Impairment pain Mcfp Goal (LTG) Pt will report no more than 2/ 10 LBP during the day. LTG Duration Achieved Two Impairment muscle tightness STG Duration Progressing - still some tightness of lumbar paraspinals but not QL Mcfp Goal (LTG) Pt will have no tenderness to palpation in LB region LTG Duration 04/10/18 - Progressing One Impairment Strength Short Term Goal (STG) Pt will be indep with HEP STG Duration Achieved and continual Mcfp Goal (LTG) Pt will have 5/5 MMT for BLEs to allow improvement in movement to allow greater time on feet before pain. LTG Duration 04/20/18 - Progressing Assessment Summary Assessment Pt is improving with his balance and had no LOB with activities today, but did slow down during dynamic activities with head turns and eyes closed. Physical Therapy Plan Frequency and Duration Frequency of Treatment 2x/Week Duration of Treatment 2 months Plan of Care Start Date 02/18/18 Plan of Care End Date 04/20/18 Next Visit Focus/Plan Next Note Type Treatment Note Next Visit Plan Cont to work on balance
--- NOTE | 2018-04-07 09:46 | PT.OTN ---
Current Diagnoses Disease of spinal cord, unspecified (04/07/18) Spinal stenosis, lumbar region with neurogenic claudication (04/07/18) Other biomechanical lesions of lumbar region (04/07/18) Unspecified abnormalities of gait and mobility (04/07/18) Physical Therapy Treatment Note PT-OP-A Visit Information Start: 10/25/17 07:27 Freq: Status: Active Protocol: Document 04/07/18 08:17 [facility] (Rec: 04/07/18 09:01 [facility] [id number]) Out-Patient Physical Therapy Visit Information Visit Information Visit Type Treatment Note Visit Note 19 visits Visit Start Time 08:15 Visit Stop Time 08:55 Total Visit Minutes 40 Visit Number 6/10 Number of VOLUNTEER SERVICES COORDINATOR Visits 0 PT-OP-B Current Condition Start: 10/25/17 07:27 Freq: Status: Active Protocol: Document 12/05/17 11:21 [facility] (Rec: 12/05/17 17:31 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 A ton of neurological tests were done on him until they found central canal stenosis in his neck. Pt had ACDF C4-7 and laminectomies of C5-7. This slowed the progress of the weakness of LEs & gait difficulties. Pt reports about a couple months ago, he started to have LBP with pain down post thighs and calves. Reports he started to have an inc in difficulty of walking. He has pain with standing and walking and pain is getting worse with decreasing time pt can spend up before pain starts. He sits down to relieve pain and does not allow pain to get over 5/10. It takes a little while of sitting to have pain relief. Reports no other treatment has been done and PT is first treatment approach. MD referal states that if PT increases pain, pt is to return to MD & stop PT. UPDATE* -pt had L4-5 lami 11/04 and was cleared to start PT. Thinks he may have dec foot drop since surgery and back pain has improved but feels tight still. No lifting >10 lbs, limit twisting and bending Prior Treatments and Tests Pt had MRI of cervical, thoracic & lumbar vertebra. Reports are in chart with evidence of central canal narrowing in cervical & lumbar region. PT-OP-C Subjective Start: 10/25/17 07:27 Freq: Status: Active Protocol: Document 04/07/18 08:17 [facility] (Rec: 04/07/18 09:01 [facility] [id number]) OP-PT Subjective Patient Comments Patient Comments Pt reports low grade back pain when he is moving around. PT-OP-D Balance Start: 10/25/17 09:03 Freq: Status: Active Protocol: Document 02/18/18 08:16 ML (Rec: 02/18/18 16:34 ML [id number]) Balance Tests Other Other Balance Tests Performed Functional Gait Assessment: PT-OP-F Manual Assessment Start: 10/25/17 07:27 Freq: Status: Active Protocol: Document 10/25/17 10:07 [facility] (Rec: 10/25/17 10:29 [facility] [id number]) Manual Assessments Soft Tissue Assessment Soft Tissue Mobility Assessment L>R QL tightness, B ES & HS tightness & R>L glute tightness Joint Mobility Assessment Joint Mobility Assessment With knee bend, pt has IR of R femur & ER of L with tibia neutral position and L ER. Pt has elevated R iliac crest with equal height greater trochanters. PT-OP-G Mobility & Gait Start: 10/25/17 07:27 Freq: Status: Active Protocol: Document 10/25/17 10:07 [facility] (Rec: 10/25/17 10:29 [facility] [id number]) OP Gait Assessment Comments Gait Comments Pt amb without AD with mild scissoring, knee hyperext and lateral leaning. Pt reports 1 fall in past year. PT-OP-J Posture/Palpation/Skin Start: 10/25/17 07:27 Freq: Status: Active Protocol: Document 02/18/18 08:16 ML (Rec: 02/18/18 09:01 ML [id number]) Palpation Assessment Location lumbar musculature Palpation Details mild tightness in paraspinals PT-OP-K Range of Motion Start: 10/25/17 07:27 Freq: Status: Active Protocol: Document 10/25/17 10:07 [facility] (Rec: 10/25/17 10:29 [facility] [id number]) Lumbar Spine Range of Motion Lumbar Spine Active Degrees Testing Position standing Flexion 65 Extension 15 Lateral Flexion Left 25 Lateral Flexion Right 20 Comments tight with flex; about 75% L rotation & 60% R PT-OP-L Special Tests Start: 10/25/17 07:27 Freq: Status: Active Protocol: Document 10/25/17 10:07 [facility] (Rec: 10/25/17 10:29 [facility] [id number]) Special Tests Lumbar Spine Special Tests Straight Leg Raise Test Results neg B Slump Test Results postive R, Neg L PT-OP-M Strength Start: 10/25/17 07:27 Freq: Status: Active Protocol: Document 04/07/18 08:17 [facility] (Rec: 04/07/18 09:03 [facility] [id number]) Hip Strength Hip Manual Muscle Testing Right Flexion (L2) 5 Normal Extension (S1) 4 Good Abduction 4+ Good+ External Rotation 4+ Good+ Internal Rotation 4- Good- Left Flexion (L2) 5 Normal Extension (S1) 4+ Good+ Abduction 4+ Good+ External Rotation 4+ Good+ Internal Rotation 4- Good- Knee Strength Knee Manual Muscle Testing Right Flexion (S2) 5 Normal Extension (L3) 5 Normal Reason Not Measured WFL Left Flexion (S2) 5 Normal Extension (L3) 5 Normal Reason Not Measured WFL Ankle/Foot Strength Ankle and Foot Manual Muscle Testing Right Dorsiflexion (L4) 5 Normal Plantarflexion (S1) 5 Normal Left Dorsiflexion (L4) 5 Normal Plantarflexion (S1) 3 Fair PT-OP-Q Treatments Start: 10/25/17 07:27 Freq: Status: Active Protocol: Document 04/07/18 08:17 [facility] (Rec: 04/07/18 09:01 [facility] [id number]) Cardio Equipment Elliptical Duration (Minutes) 6 Resistance 5 Therapeutic Exercises Sidelying Exercises 3 Sidelying Exercise Name reverse clamshell Equipment Used lvl 1 Reps/Minutes 10 Standing Exercises 11 Standing Exercise Name squat over chair Reps/Minutes 15 10 Standing Exercise Name lunges Reps/Minutes 20ftx2 9 Standing Exercise Name SLS in mirror Other Exercises 2 Other Exercise Name jatin pose Neuro Re-Education Treatment Balance Activities hurdles Details hurdles Comments all 6, 1 foot length apart x 6 reps, 2 with about 6 ft apart x6 reps tandem walking Equipment bar Comments cues for not locking knees 2 Details walking with head turns Reps/Duration 40ft x2 Comments vertical & horizontal & diagonal fwd and backwards 1 Details FGA 25/30 PT-OP-R Modalities Start: 10/25/17 07:27 Freq: Status: Active Protocol: Document 12/17/17 08:14 [facility] (Rec: 12/17/17 09:00 [facility] [id number]) Hot Pack/Cold Pack Treatment Cold Pack Location lumbar Patient Position Prone Treatment Duration (minutes) 10 PT-OP-T Assessment and Plan Start: 10/25/17 07:27 Freq: Status: Active Protocol: Document 04/07/18 08:17 [facility] (Rec: 04/07/18 09:01 [facility] [id number]) Physical Therapy Assessment Goals Four Impairment dec balance Short Term Goal (STG) Pt will achieve a 18/30 on FGA to improve balance through functional activities. STG Duration achieved Roll Contour Grinder Goal (LTG) Pt will achieve a 22/30 on FGA to improve balance through functional activities. LTG Duration achieved 23/30 Two Impairment muscle tightness STG Duration Progressing - still some tightness of lumbar paraspinals but not QL Penitentiary Goal (LTG) Pt will have no tenderness to palpation in LB region LTG Duration 04/10/18 - Progressing One Impairment Strength Short Term Goal (STG) Pt will be indep with HEP STG Duration Achieved and continual Penitentiary Goal (LTG) Pt will have 5/5 MMT for BLEs to allow improvement in movement to allow greater time on feet before pain. LTG Duration 04/20/18 - Progressing Assessment Summary Assessment Pt has improved significantly with balance and gait cont to improve with dec locking of knee. He cont to have some deficits in strength but is overall improving and will cont with HEP. Physical Therapy Plan Frequency and Duration Frequency of Treatment 1x/Week Duration of Treatment 1 month Plan of Care Start Date 04/07/17 Plan of Care End Date 05/08/17 Therapeutic Interventions Therapeutic Interventions Aquatic Therapy Balance Training Home Exercise Program Joint Mobilizations Manual Therapy Neuromuscular Re-education Soft Tissue Mobilization Taping Therapeutic Activities Therapeutic Exercises Modalities Cold Pack/Ice Massage Electric Stimulation Hot Packs Ultrasound Next Visit Focus/Plan Next Note Type Treatment Note Next Visit Plan Advance balance
--- NOTE | 2018-04-07 09:46 | PT.OPPOC ---
Current Diagnoses Disease of spinal cord, unspecified (04/07/18) Spinal stenosis, lumbar region with neurogenic claudication (04/07/18) Other biomechanical lesions of lumbar region (04/07/18) Unspecified abnormalities of gait and mobility (04/07/18) Provider Visit Care Team Role Provider Type La Keith MD Primary Care Provider Non-Staff Specialty: Physical Medicine and Rehab Address: [address] [place] [address] [address] [facility] [place], [address] Email: Nemesio [place] MD Attending Provider Physician Specialty: Family Practice Address: [address] [place] [address], [id number] Email: Plan Of Care PT-OP-T Assessment and Plan Start: 10/25/17 07:27 Freq: Status: Active Protocol: Document 04/07/18 08:17 [facility] (Rec: 04/07/18 09:01 [facility] [id number]) Physical Therapy Assessment Goals Four Impairment dec balance Short Term Goal (STG) Pt will achieve a 18/30 on FGA to improve balance through functional activities. STG Duration achieved Intermediate Goal (LTG) Pt will achieve a 22/30 on FGA to improve balance through functional activities. LTG Duration achieved 23/30 Two Impairment muscle tightness STG Duration Progressing - still some tightness of lumbar paraspinals but not QL Intermediate Goal (LTG) Pt will have no tenderness to palpation in LB region LTG Duration 04/10/18 - Progressing One Impairment Strength Short Term Goal (STG) Pt will be indep with HEP STG Duration Achieved and continual Intermediate Goal (LTG) Pt will have 5/5 MMT for BLEs to allow improvement in movement to allow greater time on feet before pain. LTG Duration 04/20/18 - Progressing Assessment Summary Assessment Pt has improved significantly with balance and gait cont to improve with dec locking of knee. He cont to have some deficits in strength but is overall improving and will cont with HEP. Physical Therapy Plan Frequency and Duration Frequency of Treatment 1x/Week Duration of Treatment 1 month Plan of Care Start Date 04/07/17 Plan of Care End Date 05/08/17 Therapeutic Interventions Therapeutic Interventions Aquatic Therapy Balance Training Home Exercise Program Joint Mobilizations Manual Therapy Neuromuscular Re-education Soft Tissue Mobilization Taping Therapeutic Activities Therapeutic Exercises Modalities Cold Pack/Ice Massage Electric Stimulation Hot Packs Ultrasound Next Visit Focus/Plan Next Note Type Treatment Note Next Visit Plan Advance balance Plan of Care Dates Plan of Care Start Date 04/07/17 Plan of Care End Date 05/08/17 Please Sign and Return: I have reviewed this Plan of Care and certify that the skilled therapy services above are required to meet the patient?s needs. Physician Signature Date Printed Name and Credentials Clinical Instructor Signature Printed Name and Credentials
--- NOTE | 2018-04-14 08:59 | PT.OTN ---
Current Diagnoses Disease of spinal cord, unspecified (04/14/18) Spinal stenosis, lumbar region with neurogenic claudication (04/14/18) Other biomechanical lesions of lumbar region (04/14/18) Unspecified abnormalities of gait and mobility (04/14/18) Physical Therapy Treatment Note PT-OP-A Visit Information Start: 10/25/17 07:27 Freq: Status: Active Protocol: Document 04/14/18 08:20 [facility] (Rec: 04/14/18 08:58 [facility] [id number]) Out-Patient Physical Therapy Visit Information Visit Information Visit Type Discharge Summary Visit Note 20 visits Visit Start Time 08:15 Visit Stop Time 08:55 Total Visit Minutes 40 Number of SENIOR ACCOUNTING SPECIALIST Visits 0 PT-OP-B Current Condition Start: 10/25/17 07:27 Freq: Status: Active Protocol: Document 12/05/17 11:21 [facility] (Rec: 12/05/17 17:31 [facility] [id number]) Current Condition History of Current Condition Onset Date couple months ago Current Complaints LBP w/radicular pain into post LEs History of Current Condition 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 A ton of neurological tests were done on him until they found central canal stenosis in his neck. Pt had ACDF C4-7 and laminectomies of C5-7. This slowed the progress of the weakness of LEs & gait difficulties. Pt reports about a couple months ago, he started to have LBP with pain down post thighs and calves. Reports he started to have an inc in difficulty of walking. He has pain with standing and walking and pain is getting worse with decreasing time pt can spend up before pain starts. He sits down to relieve pain and does not allow pain to get over 5/10. It takes a little while of sitting to have pain relief. Reports no other treatment has been done and PT is first treatment approach. MD referal states that if PT increases pain, pt is to return to MD & stop PT. UPDATE* -pt had L4-5 lami 11/04 and was cleared to start PT. Thinks he may have dec foot drop since surgery and back pain has improved but feels tight still. No lifting >10 lbs, limit twisting and bending Prior Treatments and Tests Pt had MRI of cervical, thoracic & lumbar vertebra. Reports are in chart with evidence of central canal narrowing in cervical & lumbar region. PT-OP-C Subjective Start: 10/25/17 07:27 Freq: Status: Active Protocol: Document 04/14/18 08:20 [facility] (Rec: 04/14/18 08:58 [facility] [id number]) OP-PT Subjective Patient Comments Patient Comments Pt feels ready for today to be his last day PT-OP-D Balance Start: 10/25/17 09:03 Freq: Status: Active Protocol: Document 02/18/18 08:16 [facility] (Rec: 02/18/18 16:34 ML [email or web address]) Balance Tests Other Other Balance Tests Performed Functional Gait Assessment: PT-OP-F Manual Assessment Start: 10/25/17 07:27 Freq: Status: Active Protocol: Document 10/25/17 10:07 [facility] (Rec: 10/25/17 10:29 [facility] [id number]) Manual Assessments Soft Tissue Assessment Soft Tissue Mobility Assessment L>R QL tightness, B ES & HS tightness & R>L glute tightness Joint Mobility Assessment Joint Mobility Assessment With knee bend, pt has IR of R femur & ER of L with tibia neutral position and L ER. Pt has elevated R iliac crest with equal height greater trochanters. PT-OP-G Mobility & Gait Start: 10/25/17 07:27 Freq: Status: Active Protocol: Document 10/25/17 10:07 [facility] (Rec: 10/25/17 10:29 [facility] [id number]) OP Gait Assessment Comments Gait Comments Pt amb without AD with mild scissoring, knee hyperext and lateral leaning. Pt reports 1 fall in past year. PT-OP-J Posture/Palpation/Skin Start: 10/25/17 07:27 Freq: Status: Active Protocol: Document 02/18/18 08:16 ML (Rec: 02/18/18 09:01 ML [id number]) Palpation Assessment Location lumbar musculature Palpation Details mild tightness in paraspinals PT-OP-K Range of Motion Start: 10/25/17 07:27 Freq: Status: Active Protocol: Document 10/25/17 10:07 [facility] (Rec: 10/25/17 10:29 [facility] [id number]) Lumbar Spine Range of Motion Lumbar Spine Active Degrees Testing Position standing Flexion 65 Extension 15 Lateral Flexion Left 25 Lateral Flexion Right 20 Comments tight with flex; about 75% L rotation & 60% R PT-OP-L Special Tests Start: 10/25/17 07:27 Freq: Status: Active Protocol: Document 10/25/17 10:07 [facility] (Rec: 10/25/17 10:29 [facility] [id number]) Special Tests Lumbar Spine Special Tests Straight Leg Raise Test Results neg B Slump Test Results postive R, Neg L PT-OP-M Strength Start: 10/25/17 07:27 Freq: Status: Active Protocol: Document 04/07/18 08:17 [facility] (Rec: 04/07/18 09:03 [facility] [id number]) Hip Strength Hip Manual Muscle Testing Right Flexion (L2) 5 Normal Extension (S1) 4 Good Abduction 4+ Good+ External Rotation 4+ Good+ Internal Rotation 4- Good- Left Flexion (L2) 5 Normal Extension (S1) 4+ Good+ Abduction 4+ Good+ External Rotation 4+ Good+ Internal Rotation 4- Good- Knee Strength Knee Manual Muscle Testing Right Flexion (S2) 5 Normal Extension (L3) 5 Normal Reason Not Measured WFL Left Flexion (S2) 5 Normal Extension (L3) 5 Normal Reason Not Measured WFL Ankle/Foot Strength Ankle and Foot Manual Muscle Testing Right Dorsiflexion (L4) 5 Normal Plantarflexion (S1) 5 Normal Left Dorsiflexion (L4) 5 Normal Plantarflexion (S1) 3 Fair PT-OP-Q Treatments Start: 10/25/17 07:27 Freq: Status: Active Protocol: Document 04/14/18 08:20 [facility] (Rec: 04/14/18 08:58 [facility] [id number]) Cardio Equipment Elliptical Duration (Minutes) 6 Resistance 5 Gym Equipment Shuttle Balance 1 Details red clips Comments staggered stance fwd & side & fwd NBOS Therapeutic Exercises Sidelying Exercises 3 Sidelying Exercise Name reverse clamshell Equipment Used lvl 1 Reps/Minutes 10 Standing Exercises 11 Standing Exercise Name squat over chair Reps/Minutes 15 10 Standing Exercise Name lunges Reps/Minutes 20ftx2 9 Standing Exercise Name SLS in mirror Other Exercises 2 Other Exercise Name jatin pose Comments standing & quadruped Manual Therapy Treatment Soft Tissue Mobilization 4 Body Location ql/es Mobilization Type Rolling Neuro Re-Education Treatment Balance Activities tandem walking Details fwd/back Comments cues for not locking knees 1 Details fwd/back walking eyese closed PT-OP-R Modalities Start: 10/25/17 07:27 Freq: Status: Active Protocol: Document 12/17/17 08:14 [facility] (Rec: 12/17/17 09:00 [facility] [id number]) Hot Pack/Cold Pack Treatment Cold Pack Location lumbar Patient Position Prone Treatment Duration (minutes) 10 PT-OP-T Assessment and Plan Start: 10/25/17 07:27 Freq: Status: Active Protocol: Document 04/14/18 08:20 [facility] (Rec: 04/14/18 08:58 [facility] [id number]) Physical Therapy Assessment Goals Four Impairment dec balance Short Term Goal (STG) Pt will achieve a 18/30 on FGA to improve balance through functional activities. STG Duration achieved Assisted Goal (LTG) Pt will achieve a 22/30 on FGA to improve balance through functional activities. LTG Duration achieved 23/30 Two Impairment muscle tightness STG Duration Progressing - still some tightness of lumbar paraspinals but not QL Clinical Psychology Teacher Goal (LTG) Pt will have no tenderness to palpation in LB region LTG Duration achieved One Impairment Strength Short Term Goal (STG) Pt will be indep with HEP STG Duration Achieved and continual Assisted Goal (LTG) Pt will have 5/5 MMT for BLEs to allow improvement in movement to allow greater time on feet before pain. LTG Duration 04/20/18 - Progressing Assessment Summary Assessment Pt has met all but his strength goal and his LE strength has improved significantly and will cont to improve with cont work with HEP. Pt is indep with HEP and all questions have been answered. Physical Therapy Plan Discharge Physical Therapy Discharge Reasons Goals Met Discharge Comments To cont w/HEP
== END 2018-04-14 13:09 ==
LOC: PHYS 08:15
PROVIDERS: PCP Physical Medicine & Rehabilitation; Visit Provider Family Medicine
DX: G95.9 Disease of spinal cord, unspecified (principal); M48.062 Spinal stenosis, lumbar region with neurogenic claudication; R26.9 Unspecified abnormalities of gait and mobility; M99.83 Other biomechanical lesions of lumbar region
CPT/HCPCS: 97010; 97110; 97112; 97116; 97140; 97162

== ENCOUNTER → 2018-06-25 10:11 | Outpatient (CLI) | payer MEDICARE, SELFPAY ==
--- NOTE | 2018-06-25 | DI.US.S_ITS ---
PROCEDURE: US ARTERIAL DUPLEX LE BI INDICATIONS: PERIPHERAL ARTERIAL DISEASE TECHNIQUE: Color and pulse Doppler interrogation was performed of both lower extremity arterial systems, with image documentation. COMPARISON: None. FINDINGS: Right lower extremity: Common femoral artery: 110 cm/sec, with triphasic flow. Deep femoral artery: 91 cm/sec, with triphasic flow. Proximal superficial femoral artery: 139 cm/sec, with triphasic flow. Mid superficial femoral artery: 86 cm/sec, with triphasic flow. Distal superficial femoral artery: 64 cm/sec, with triphasic flow. Popliteal artery: 78 cm/sec, with triphasic flow. Posterior tibial artery: 64 cm/sec, with biphasic flow. Anterior tibial artery/dorsalis pedis: 78 cm/sec, with biphasic flow. Bennett-scale imaging description: Minimal plaque. No stenosis. Left lower extremity: Common femoral artery: 113 cm/sec, with triphasic flow. Deep femoral artery: 71 cm/sec, with triphasic flow. Proximal superficial femoral artery: 124 cm/sec, with triphasic flow. Mid superficial femoral artery: 85 cm/sec, with triphasic flow. Distal superficial femoral artery: 66 cm/sec, with biphasic flow. Popliteal artery: 74 cm/sec, with biphasic flow. Posterior tibial artery: 65 cm/sec, with biphasic flow. Anterior tibial artery/dorsalis pedis: 77 cm/sec, with biphasic flow. Bennett-scale imaging description: Minimal plaque. No significant stenosis. IMPRESSION: Waveforms suggest no inflow disease. Duplex arterial findings demonstrate no significant stenotic disease from the inguinal ligaments to the ankles. At least 2 vessel runoff. Dictated by: Randy Christensen M.D. on 06/25/2018 at 12:26 Approved by: Randy Christensen M.D. on 06/25/2018 at 12:44
== END ==
PROVIDERS: Visit Provider Internal Medicine Cardiovascular Disease
DX: I73.9 Peripheral vascular disease, unspecified (principal)
CPT/HCPCS: 93925

== ENCOUNTER 2019-03-16 09:45 | Outpatient (RCR) | payer MEDICARE, SELFPAY ==
--- NOTE | 2019-03-11 13:02 | PT.OIE ---
Current Diagnoses Sciatica, right side (03/11/19) Visit Care Team Role Provider Type Guzman Claros MD Attending Provider Physician Specialty: Wound Care Address: [address] [place] [address], [id number] Email: [email or web address] [facility] Initial Evaluation PT-OP-A Visit Information Start: 03/11/19 11:16 Freq: Status: Active Protocol: Document 03/11/19 11:17 AMH (Rec: 03/11/19 12:02 AMH [id number]) Out-Patient Physical Therapy Visit Information Visit Information Visit Type Initial Evaluation Visit Start Time 11:15 Visit Stop Time 12:00 Total Visit Minutes 45 Visit Number 1 Evaluation Information Evaluation Date 03/11/19 PT-OP-B Current Condition Start: 03/11/19 11:16 Freq: Status: Active Protocol: Document 03/11/19 11:17 AMH (Rec: 03/11/19 12:02 AMH [id number]) Current Condition History of Current Condition Onset Date 6 weeks ago Current Complaints right sided piriformis pain and radicular sx History of Current Condition Salvador has a hx of lumbar spine and cervical spine surgeries. He has undergone a Laminectomy for the lumbar spine( he is not sure which levels) With cervical surgery he has had a cervical fusion. 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 He reports he was doing well until 6 weeks ago his when his right gluteal region started bothering him It is especially worse when he drives and when he sits. He reports It feels like the pelvis is crunching the nerve. It starts out pretty quickly when he sits. Driving for 1/2 hour the pain will start going down his leg. 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 but now he is not able to tolerate it Prior Treatments and Tests hx of lumbar laminectomy and cervical fusion Treatment Goals Patient/Caregiver Goals to be able to sit without out pain and not be as tight in his gluteal muscles Prior Functional Status Baseline Function- Gait uses a SPC to ambulate PT-OP-C Subjective Start: 03/11/19 11:16 Freq: Status: Active Protocol: Document 03/11/19 11:17 AMH (Rec: 03/15/19 12:57 AMH [email or web address]) OP-PT Pain Assessment Location right piriformis Pain Location Details right piriformis Intensity 5 Scale Used Numeric (1 - 10) Radiating Location down the posterior right leg to mid hamstring Pain Aggravating Factors Sitting PT-OP-F Manual Assessment Start: 03/11/19 11:16 Freq: Status: Active Protocol: Document 03/11/19 11:17 AMH (Rec: 03/15/19 12:57 AMH [email or web address]) Manual Assessments Soft Tissue Assessment Soft Tissue Mobility Assessment right sided piriformis tightness as compared to left, shortness in the right quads and iliopsoas as compared to the left Bilateral Hamstring tightness Joint Mobility Assessment Joint Mobility Assessment + ASLR test for the Left LE with right side of SI joint unlocking Right leg longer in supine PT-OP-G Mobility & Gait Start: 03/11/19 11:16 Freq: Status: Active Protocol: Document 03/11/19 11:17 AMH (Rec: 03/15/19 12:57 AMH [email or web address]) OP Mobility Evaluation Functional Movements Squats difficulty with hip hinge for a squat OP Gait Assessment Assistive Devices Assistive Device Straight Cane Orthotic/Prosthetic Devices or Brace: No Gait Deviations General Gait Pattern Decreased Stride Length Factors Limiting Gait Function Factors Limiting Gait Function Decreased Strength,Limited Range of Motion Comments Gait Comments decreased stride length on the right as compared to the left , left sided ankle weakness limites DF and push off PT-OP-J Posture/Palpation/Skin Start: 03/11/19 11:16 Freq: Status: Active Protocol: Document 03/11/19 11:17 AMH (Rec: 03/15/19 12:57 AMH [email or web address]) Palpation Assessment Location lumbar musculature Palpation Details mild tightness in paraspinals PT-OP-K Range of Motion Start: 03/15/19 12:59 Freq: Status: Active Protocol: Document 03/15/19 13:01 AMH (Rec: 03/15/19 13:02 AMH [email or web address]) Lumbar Spine Range of Motion Lumbar Spine Active Degrees Flexion 60 Extension 10 Lateral Flexion Left 25 Lateral Flexion Right 20 Comments tight with lumbar flexion in the paraspinals PT-OP-M Strength Start: 03/11/19 11:16 Freq: Status: Active Protocol: Document 03/11/19 11:17 AMH (Rec: 03/15/19 12:57 AMH [email or web address]) Knee Strength Knee Manual Muscle Testing Right Reason Not Measured WFL Left Reason Not Measured WFL Ankle/Foot Strength Ankle and Foot Manual Muscle Testing Left Dorsiflexion (L4) 3+ Fair+ Plantarflexion (S1) 3+ Fair+ Eversion (S1) 4 Good Comments L side able to do pure PF in standing 20x with knee locked; unable to do full range PF with knee in a neutral position vs hyperextended, lacks full strength with ankle DF, PF, inversion, eversion PT-OP-Q Treatments Start: 03/11/19 11:16 Freq: Status: Active Protocol: Document 03/11/19 11:17 AMH (Rec: 03/11/19 14:19 AMH [email or web address]) Therapeutic Exercises Supine Exercises 3 Supine Exercise Name hamstring stretch Reps/Minutes with strap in supine 2 Supine Exercise Name piriformis stretch Reps/Minutes hold 30 sec x 2 reps 1 Supine Exercise Name prone quad stretch Reps/Minutes hold 30 seconds using strap Manual Therapy Treatment Soft Tissue Mobilization manual piriformis stretch Body Location right piriformis Body Position Prone Comments manual stretch for the piriformis PT-OP-R Modalities Start: 03/15/19 12:59 Freq: Status: Active Protocol: Document 03/15/19 12:59 AMH (Rec: 03/15/19 13:00 AMH [email or web address]) Ultrasound Therapy Treatment Right piriformis Treatment Duration (minutes) 8 Patient Position Prone Coupling Medium Ultrasound Gel Applicator Size (cm2) 5 Mode Setting Continuous Duty Cycle 100% Intensity Setting (w/cm2) 1.5 PT-OP-T Assessment and Plan Start: 03/11/19 11:16 Freq: Status: Active Protocol: Document 03/11/19 11:17 AMH (Rec: 03/15/19 12:57 AMH [email or web address]) Physical Therapy Assessment Rehab Potential Rehabilitation Potential Excellent Evaluation Complexity Number of Personal Factors/Comorbidities 0 Number of Body Systems Impaired 1-2 Clinical Presentation at Evaluation Stable Impairments Impairments Balance,Functional Activities, Functional Mobility,Gait,Pain, Posture,Soft Tissue Mobility, Strength Goals Four Impairment decreased core strength Movement Therapist Goal (LTG) Salvador demonstrates a improvement in core strength to support his lumbar spine and pelvis. He no longer has a + ASLR test and is able to keep his SI joint stable with ASLR LTG Duration 8 weeks Three Impairment pain in the right gluteal region with sitting and driving Short Term Goal (STG) Reduce pain complaints in the right gluteal region from 5/10 to 3/10 Movement Therapist Goal (LTG) Salvador is able to increase his stitting tolerance from 10 minutes to a hour or greater without a onset of pain Two Impairment muscle tightness of the piriformis, quads, hamstrings, hip flexor R>L Short Term Goal (STG) Salvador is educated on a stretching program for the LE and hip muscles STG Duration 4 weeks Snf Goal (LTG) Salvador will have ROM measurements that are the same for left and right for hamstring, quad, hip flexor, and hip ER musculature One Impairment + Slump test for radicular symptoms Movement Therapist Goal (LTG) Salvador reports a decrease in radicular symptoms and has a negative slump test LTG Duration 8 weeks Assessment Summary Assessment Salvador presents to physical therapy today with a history of both lumbar and cervical pain and surgeries. He has been seen in PT previously for his lumbar spine. 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 He is using a cane for ambulation. He reports he was doing well until 6 weeks ago when he began having a new onset of right sided gluteal pain and sciatica symptoms. This is brought on with sitting and driving especially . Pain prevents him from sitting greater than 10 minutes at this time. With examination today Salvador presents with right sided hip tightness including piriformis , quads, hamstring, and iliopsoas. He is tighter on the right compared to his left side. He also demonstrates instability of his core and SI joint. His muscle deficits in the LE are on his left side with ankle weakness from history of nerve injury. He does have + dural tension tests on the right today. Treatment today included Ultrasound over the right gluteal and manual piriformis stretching. He was given a home program for piriformis stretch, prone quad stretch, and hamstring stretch to work on bilaterally. He is a good candidate for PT Physical Therapy Plan Frequency and Duration Frequency of Treatment 2x/Week Duration of Treatment 8 Plan of Care Start Date 03/11/19 Plan of Care End Date 05/06/19 Therapeutic Interventions Therapeutic Interventions Balance Training,Gait Training ,Home Exercise Program,Manual Therapy,Patient/Caregiver Education,Self-Care/Home Management,Soft Tissue Mobilization,Therapeutic Exercises Modalities Ultrasound Next Visit Focus/Plan Next Note Type Treatment Note Next Visit Plan work on manual release of the right piriformis, stretches for B hips, review manual self STM with lacrosse ball under right piriformis, core strengthening.
--- NOTE | 2019-03-11 13:08 | PT.OPPOC ---
Current Diagnoses Sciatica, right side (03/11/19) Visit Care Team Role Provider Type Guzman Claros MD Attending Provider Physician Specialty: Wound Care Address: [address] [place] [address], [id number] Email: [email or web address] Plan Of Care PT-OP-T Assessment and Plan Start: 03/11/19 11:16 Freq: Status: Active Protocol: Document 03/11/19 11:17 AMH (Rec: 03/15/19 12:57 AMH [email or web address]) Physical Therapy Assessment Rehab Potential Rehabilitation Potential Excellent Evaluation Complexity Number of Personal Factors/Comorbidities 0 Number of Body Systems Impaired 1-2 Clinical Presentation at Evaluation Stable Impairments Impairments Balance,Functional Activities, Functional Mobility,Gait,Pain, Posture,Soft Tissue Mobility, Strength Goals Four Impairment decreased core strength Fpc Goal (LTG) Salvador demonstrates a improvement in core strength to support his lumbar spine and pelvis. He no longer has a + ASLR test and is able to keep his SI joint stable with ASLR LTG Duration 8 weeks Three Impairment pain in the right gluteal region with sitting and driving Short Term Goal (STG) Reduce pain complaints in the right gluteal region from 5/10 to 3/10 [employer] Goal (LTG) Salvador is able to increase his sitting tolerance from 10 minutes to a hour or greater without a onset of pain Two Impairment muscle tightness of the piriformis, quads, hamstrings, hip flexor R>L Short Term Goal (STG) Salvador is educated on a stretching program for the LE and hip muscles STG Duration 4 weeks Fpc Goal (LTG) Salvador will have ROM measurements that are the same for left and right for hamstring, quad, hip flexor, and hip ER musculature One Impairment + Slump test for radicular symptoms Fpc Goal (LTG) Salvador reports a decrease in radicular symptoms and has a negative slump test LTG Duration 8 weeks Assessment Summary Assessment Salvador presents to physical therapy today with a history of both lumbar and cervical pain and surgeries. He has been seen in PT previously for his lumbar spine. 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 He is using a cane for ambulation. He reports he was doing well until 6 weeks ago when he began having a new onset of right sided gluteal pain and sciatica symptoms. This is brought on with sitting and driving especially . Pain prevents him from sitting greater than 10 minutes at this time. With examination today Salvador presents with right sided hip tightness including piriformis , quads, hamstring, and iliopsoas. He is tighter on the right compared to his left side. He also demonstrates instability of his core and SI joint. His muscle deficits in the LE are on his left side with ankle weakness from history of nerve injury. He does have + dural tension tests on the right today. Treatment today included Ultrasound over the right gluteal and manual piriformis stretching. He was given a home program for piriformis stretch, prone quad stretch, and hamstring stretch to work on bilaterally. He is a good candidate for PT Physical Therapy Plan Frequency and Duration Frequency of Treatment 2x/Week Duration of Treatment 8 Plan of Care Start Date 03/11/19 Plan of Care End Date 05/06/19 Therapeutic Interventions Therapeutic Interventions Balance Training,Gait Training ,Home Exercise Program,Manual Therapy,Patient/Caregiver Education,Self-Care/Home Management,Soft Tissue Mobilization,Therapeutic Exercises Modalities Ultrasound Next Visit Focus/Plan Next Note Type Treatment Note Next Visit Plan work on manual release of the right piriformis, stretches for B hips, review manual self STM with lacrosse ball under right piriformis, core strengthening. Plan of Care Dates Plan of Care Start Date 03/11/19 Plan of Care End Date 05/06/19
--- NOTE | 2019-03-16 10:30 | PT.OTN ---
Current Diagnoses Sciatica, right side (03/16/19) Physical Therapy Treatment Note PT-OP-A Visit Information Start: 03/11/19 11:16 Freq: Status: Active Protocol: Document 03/16/19 09:57 SP (Rec: 03/16/19 12:01 SP [id number]) Out-Patient Physical Therapy Visit Information Visit Information Visit Type Treatment Note Visit Start Time 09:57 Visit Stop Time 10:30 Total Visit Minutes 37 Visit Number 2 Number of COKEMAN Visits 1 PT-OP-B Current Condition Start: 03/11/19 11:16 Freq: Status: Active Protocol: Document 03/11/19 11:17 AMH (Rec: 03/11/19 12:02 AMH [id number]) Current Condition History of Current Condition Onset Date 6 weeks ago Current Complaints right sided piriformis pain and radicular sx History of Current Condition Salvador has a hx of lumbar spine and cervical spine surgeries. He has undergone a Laminectomy for the lumbar spine( he is not sure which levels) With cervical surgery he has had a cervical fusion. 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 He reports he was doing well until 6 weeks ago his when his right gluteal region started bothering him It is expecially worse when he drives and when he sits. He reports It feels like the pelvis is crunching the nerve. It starts out pretty quickly when he sits. Driving for 1/2 hour the pain will start going down his leg. 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 PT-OP-F Manual Assessment Start: 03/11/19 11:16 Freq: Status: Active Protocol: Document 03/11/19 11:17 AMH (Rec: 03/15/19 12:57 AMH [email or web address]) Manual Assessments Soft Tissue Assessment Soft Tissue Mobility Assessment right sided piriformis tightness as compared to left, shortness in the right quads and iliopsoas as compared to the left Bilateral Hamstring tightness Joint Mobility Assessment Joint Mobility Assessment + ASLR test for the Left LE with right side of SI joint unlocking Right leg longer in supine PT-OP-G Mobility & Gait Start: 03/11/19 11:16 Freq: Status: Active Protocol: Document 03/11/19 11:17 AMH (Rec: 03/15/19 12:57 AMH [email or web address]) OP Mobility Evaluation Functional Movements Squats difficulty with hip hinge for a squat OP Gait Assessment Assistive Devices Assistive Device Straight Cane Orthotic/Prosthetic Devices or Brace: No Gait Deviations General Gait Pattern Decreased Stride Length Factors Limiting Gait Function Factors Limiting Gait Function Decreased Strength,Limited Range of Motion Comments Gait Comments decreased stride length on the right as compared to the left , left sided ankle weakness limites DF and push off PT-OP-J Posture/Palpation/Skin Start: 03/11/19 11:16 Freq: Status: Active Protocol: Document 03/11/19 11:17 AMH (Rec: 03/15/19 12:57 AMH [email or web address]) Palpation Assessment Location lumbar musculature Palpation Details mild tightness in paraspinals PT-OP-K Range of Motion Start: 03/15/19 12:59 Freq: Status: Active Protocol: Document 03/15/19 13:01 AMH (Rec: 03/15/19 13:02 AMH [email or web address]) Lumbar Spine Range of Motion Lumbar Spine Active Degrees Flexion 60 Extension 10 Lateral Flexion Left 25 Lateral Flexion Right 20 Comments tight with lumbar flexion in the paraspinals PT-OP-M Strength Start: 03/11/19 11:16 Freq: Status: Active Protocol: Document 03/11/19 11:17 AMH (Rec: 03/15/19 12:57 AMH [email or web address]) Knee Strength Knee Manual Muscle Testing Right Reason Not Measured WFL Left Reason Not Measured WFL Ankle/Foot Strength Ankle and Foot Manual Muscle Testing Left Dorsiflexion (L4) 3+ Fair+ Plantarflexion (S1) 3+ Fair+ Eversion (S1) 4 Good Comments L side able to do pure PF in standing 20x with knee locked; unable to do full range PF with knee in a neutral position vs hyperextended, lacks full strength with ankle DF, PF, inversion, eversion PT-OP-Q Treatments Start: 03/11/19 11:16 Freq: Status: Active Protocol: Document 03/16/19 09:57 SP (Rec: 03/16/19 12:01 SP [id number]) Therapeutic Exercises Supine Exercises core march Reps/Minutes 2x10 Comments cue PPT awareness ITB stretch Supine Exercise Name ITB stretch Side right Equipment Used strap Reps/Minutes 30 x2 reps Comments cued 3 Supine Exercise Name hamstring stretch Reps/Minutes with strap in supine 30 x2 2 Supine Exercise Name piriformis stretch Reps/Minutes hold 30 sec x 2 reps 1 Supine Exercise Name prone quad stretch Reps/Minutes hold 30 seconds using strap Comments cued rest head on opposite arm neutral CS Standing Exercises 2 Standing Exercise Name sit to stand Resistance TB #2 Equipment Used raised table Reps/Minutes 2x10 Comments cued keeping knees apart 1 Standing Exercise Name standing core march cone taps Side bilateral Resistance AROM Equipment Used contact table as needed Reps/Minutes 2x10 Comments cued level pelvis, slow movement control (alternate BLE) Other Exercises 1 Other Exercise Name self PF STM ball seated Reps/Minutes 2 min R Comments sustained compression and MFR PT-OP-R Modalities Start: 03/15/19 12:59 Freq: Status: Active Protocol: Document 03/15/19 12:59 AMH (Rec: 03/15/19 13:00 AMH [email or web address]) Ultrasound Therapy Treatment Right piriformis Treatment Duration (minutes) 8 Patient Position Prone Coupling Medium Ultrasound Gel Applicator Size (cm2) 5 Mode Setting Continuous Duty Cycle 100% Intensity Setting (w/cm2) 1.5 PT-OP-T Assessment and Plan Start: 03/11/19 11:16 Freq: Status: Active Protocol: Document 03/16/19 09:57 SP (Rec: 03/16/19 12:01 SP [id number]) Physical Therapy Assessment Goals Four Impairment decreased core strength Imager Goal (LTG) Salvador demonstrates a improvement in core strength to support his lumbar spine and pelvis. He no longer has a + ASLR test and is able to keep his SI joint stable with ASLR LTG Duration 8 weeks Three Impairment pain in the right gluteal region with sitting and driving Short Term Goal (STG) Reduce pain complaints in the right gluteal region from 5/10 to 3/10 Imager Goal (LTG) Salvador is able to increase his stitting tolerance from 10 minutes to a hour or greater without a onset of pain Two Impairment muscle tightness of the piriformis, quads, hamstrings, hip flexor R>L Short Term Goal (STG) Salvador is educated on a stretching program for the LE and hip muscles STG Duration 4 weeks Retirement Goal (LTG) Salvador will have ROM measurements that are the same for left and right for hamstring, quad, hip flexor, and hip ER musculature One Impairment + Slump test for radicular symptoms Imager Goal (LTG) Salvador reports a decrease in radicular symptoms and has a negative slump test LTG Duration 8 weeks Assessment Summary Assessment Tx focused on stretching HEP review initially. Added core marching supine and standing, sit to stands with cuing for core and glut facilitation w / slow controlled movements. Pt responded well my R hip/LB feels little more stretched out. Physical Therapy Plan Frequency and Duration Frequency of Treatment 2x/Week Duration of Treatment 8 Plan of Care Start Date 03/11/19 Plan of Care End Date 05/06/19 Therapeutic Interventions Therapeutic Interventions Balance Training,Gait Training ,Home Exercise Program,Manual Therapy,Patient/Caregiver Education,Self-Care/Home Management,Soft Tissue Mobilization,Therapeutic Exercises Modalities Ultrasound Next Visit Focus/Plan Next Note Type Treatment Note Next Visit Plan Assess response to added core march supine and standing, sit to stands. Add next tx lateral band walk, step ups, continue flexibility. Continue per PT POC: work on manual release of the right piriformis, stretches for B hips, review manual self STM with lacrosse ball under right piriformis, core strengthening.
--- NOTE | 2019-11-30 13:41 | PT.OTN ---
Current Diagnoses Sciatica, right side (03/16/19) Physical Therapy Treatment Note PT-OP-A Visit Information Start: 03/11/19 11:16 Freq: Status: Active Protocol: Document 03/16/19 09:57 SP (Rec: 03/16/19 12:01 SP [id number]) Out-Patient Physical Therapy Visit Information Visit Information Visit Type Treatment Note Visit Start Time 09:57 Visit Stop Time 10:30 Total Visit Minutes 37 Visit Number 2 Number of CODING ANALYST Visits 1 PT-OP-B Current Condition Start: 03/11/19 11:16 Freq: Status: Active Protocol: Document 03/11/19 11:17 AMH (Rec: 03/11/19 12:02 AMH [id number]) Current Condition History of Current Condition Onset Date 6 weeks ago Current Complaints right sided piriformis pain and radicular sx History of Current Condition Salvador has a hx of lumbar spine and cervical spine surgeries. He has undergone a Laminectomy for the lumbar spine( he is not sure which levels) With cervical surgery he has had a cervical fusion. 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 He reports he was doing well until 6 weeks ago his when his right gluteal region started bothering him It is expecially worse when he drives and when he sits. He reports It feels like the pelvis is crunching the nerve. It starts out pretty quickly when he sits. Driving for 1/2 hour the pain will start going down his leg. 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 but now he is not able to tolerate it Prior Treatments and Tests hx of lumbar laminectomy and cervical fusion Treatment Goals Patient/Caregiver Goals to be able to sit without out pain and not be as tight in his gluteal muscles Prior Functional Status Baseline Function- Gait uses a SPC to ambulate PT-OP-C Subjective Start: 03/11/19 11:16 Freq: Status: Active Protocol: Document 03/16/19 09:57 SP (Rec: 03/16/19 12:01 SP [id number]) OP-PT Subjective Patient Comments Patient Comments Pt reported pain little less since started the stretches and the US took the edge off of discomfort. PT-OP-F Manual Assessment Start: 03/11/19 11:16 Freq: Status: Active Protocol: Document 03/11/19 11:17 AMH (Rec: 03/15/19 12:57 AMH [email or web address]) Manual Assessments Soft Tissue Assessment Soft Tissue Mobility Assessment right sided piriformis tightness as compared to left, shortness in the right quads and iliopsoas as compared to the left Bilateral Hamstring tightness Joint Mobility Assessment Joint Mobility Assessment + ASLR test for the Left LE with right side of SI joint unlocking Right leg longer in supine PT-OP-G Mobility & Gait Start: 03/11/19 11:16 Freq: Status: Active Protocol: Document 03/11/19 11:17 AMH (Rec: 03/15/19 12:57 AMH [email or web address]) OP Mobility Evaluation Functional Movements Squats difficulty with hip hinge for a squat OP Gait Assessment Assistive Devices Assistive Device Straight Cane Orthotic/Prosthetic Devices or Brace: No Gait Deviations General Gait Pattern Decreased Stride Length Factors Limiting Gait Function Factors Limiting Gait Function Decreased Strength,Limited Range of Motion Comments Gait Comments decreased stride length on the right as compared to the left , left sided ankle weakness limites DF and push off PT-OP-J Posture/Palpation/Skin Start: 03/11/19 11:16 Freq: Status: Active Protocol: Document 03/11/19 11:17 AMH (Rec: 03/15/19 12:57 AMH [email or web address]) Palpation Assessment Location lumbar musculature Palpation Details mild tightness in paraspinals PT-OP-K Range of Motion Start: 03/15/19 12:59 Freq: Status: Active Protocol: Document 03/15/19 13:01 AMH (Rec: 03/15/19 13:02 AMH [email or web address]) Lumbar Spine Range of Motion Lumbar Spine Active Degrees Flexion 60 Extension 10 Lateral Flexion Left 25 Lateral Flexion Right 20 Comments tight with lumbar flexion in the paraspinals PT-OP-M Strength Start: 03/11/19 11:16 Freq: Status: Active Protocol: Document 03/11/19 11:17 AMH (Rec: 03/15/19 12:57 AMH [email or web address]) Knee Strength Knee Manual Muscle Testing Right Reason Not Measured WFL Left Reason Not Measured WFL Ankle/Foot Strength Ankle and Foot Manual Muscle Testing Left Dorsiflexion (L4) 3+ Fair+ Plantarflexion (S1) 3+ Fair+ Eversion (S1) 4 Good Comments L side able to do pure PF in standing 20x with knee locked; unable to do full range PF with knee in a neutral position vs hyperextended, lacks full strength with ankle DF, PF, inversion, eversion PT-OP-Q Treatments Start: 03/11/19 11:16 Freq: Status: Active Protocol: Document 03/16/19 09:57 SP (Rec: 03/16/19 12:01 SP [id number]) Therapeutic Exercises Supine Exercises core march Reps/Minutes 2x10 Comments cue PPT awareness ITB stretch Supine Exercise Name ITB stretch Side right Equipment Used strap Reps/Minutes 30 x2 reps Comments cued 3 Supine Exercise Name hamstring stretch Reps/Minutes with strap in supine 30 x2 2 Supine Exercise Name piriformis stretch Reps/Minutes hold 30 sec x 2 reps 1 Supine Exercise Name prone quad stretch Reps/Minutes hold 30 seconds using strap Comments cued rest head on opposite arm neutral CS Standing Exercises 2 Standing Exercise Name sit to stand Resistance TB #2 Equipment Used raised table Reps/Minutes 2x10 Comments cued keeping knees apart 1 Standing Exercise Name standing core march cone taps Side bilateral Resistance AROM Equipment Used contact table as needed Reps/Minutes 2x10 Comments cued level pelvis, slow movement control (alternate BLE) Other Exercises 1 Other Exercise Name self PF STM ball seated Reps/Minutes 2 min R Comments sustained compression and MFR PT-OP-R Modalities Start: 03/15/19 12:59 Freq: Status: Active Protocol: Document 03/15/19 12:59 AMH (Rec: 03/15/19 13:00 AMH [email or web address]) Ultrasound Therapy Treatment Right piriformis Treatment Duration (minutes) 8 Patient Position Prone Coupling Medium Ultrasound Gel Applicator Size (cm2) 5 Mode Setting Continuous Duty Cycle 100% Intensity Setting (w/cm2) 1.5 PT-OP-T Assessment and Plan Start: 03/11/19 11:16 Freq: Status: Active Protocol: Document 11/30/19 13:39 AMH (Rec: 11/30/19 13:41 AMH [email or web address]) Physical Therapy Assessment Assessment Summary Assessment The patient has not been seen since 03/16/20 He will be discharged at this time to a [facility] Physical Therapy Plan Discharge Physical Therapy Discharge Reasons No Longer Attending PT Discharge Comments Pt has not been since since . DC PT at this time
== END 2019-12-01 11:16 ==
LOC: PHYS 09:45
PROVIDERS: Visit Provider Internal Medicine
DX: M54.31 Sciatica, right side (principal)
CPT/HCPCS: 97110; 97161

== ENCOUNTER → 2019-10-10 08:25 | Outpatient (CLI) | payer MEDICARE, SELFPAY ==
[2019-10-10 09:43] LABS: Alanine Aminotransferase 20 IU/L (<50); Albumin 4.4 g/dL (3.5-5.0); Albumin Globulin Ratio 1.7 (1.0-2.8); Alkaline Phosphatase 82 U/L (38-126); Aspartate Aminotransferase 23 IU/L (17-59); BUN Creatinine Ratio 20.9 (6-22); Bilirubin Total 0.7 mg/dL (0.2-1.3); Blood Urea Nitrogen 18 mg/dL (9-20); Calcium 9.8 mg/dL (8.4-10.2); Carbon Dioxide 33 mmol/L (22-32); Chloride 103 mmol/L (98-107); Cholesterol 149 mg/dL (140-199); Estimated Glomerular Filt Rate > 60.0 mL/min (>60); Globulin 2.6 g/dL (1.7-4.1); Glucose 95 mg/dL (80-110); HDL Cholesterol 46 mg/dL (40-60); HEMOLYSIS < 15 (0-50); LDL Cholesterol Calculated 87 mg/dL (<100); Potassium 4.8 mmol/L (3.4-5.1); Sodium 139 mmol/L (137-145); Triglycerides 79 mg/dL (35-150)
== END ==
PROVIDERS: PCP Internal Medicine; Referring Provider Internal Medicine Cardiovascular Disease; Visit Provider Internal Medicine Cardiovascular Disease
DX: E78.5 Hyperlipidemia, unspecified (principal)
CPT/HCPCS: 36415; 80053; 80061

== ENCOUNTER 2019-11-21 16:12 | Emergency (ER) | payer MEDICARE, SELFPAY ==
[2019-11-21] VITALS (16 sets, daily range): BP systolic 129–179; BP diastolic 66–106; PULSE 60–79; RESP 10–26; TEMP 36.9; O2SAT 98–100; BMI 23.6
--- NOTE | 2019-11-21 17:24 | PC.NURSE ---
Interrogated [facility] [employer] pacemaker, received fax, stickered and in patient chart.
[2019-11-21 18:25] LABS: Add Manual Diff / Slide Review NO; Basophils Absolute Auto 100 /uL (0-100); Basophils Percent Auto 1.3 % (0-2); Eosinophils Absolute Auto 300 /uL (0-450); Eosinophils Percent Auto 5.3 % (2-4); Hematocrit 39.6 % (41-53); Hemoglobin 13.4 g/dL (13.5-17.5); Lymphocytes Absolute Auto 2000 /uL (1100-4500); Lymphocytes Percent Auto 30.8 % (25-40); Mean Corpuscular Hemoglobin 31.6 PG (26-34); Mean Corpuscular Volume 93.1 fL (80-100); Monocytes Absolute Auto 500 /uL (0-900); Neutrophils Absolute Auto 3700 /uL (1500-7000); Neutrophils Percent Auto 55.6 % (50-75); Platelet Count 214 X10^3/uL (150-400); Red Blood Cell Count 4.25 X10^6/uL (4.5-5.9); Red Cell Distribution Width 13.5 % (11.6-14.8); White Blood Cell Count 6.6 X10^3/uL (4.5-11.0)
--- NOTE | 2019-11-21 18:25 | ED.ARRPALP ---
HPI - Arrhythmia/Palpitations General Chief Complaint: Arrhythmia/Palpitations Stated Complaint: Irregular Heart Beat, Has Pace Maker Time Seen by Provider: 11/21/19 18:06 Source: patient Mode of arrival: Ambulatory Limitations: no limitations History of Present Illness HPI narrative: 60-year-old male with a pacemaker placed in 2019 secondary to third-degree heart block here for evaluation for he states was earlier today for he felt his pulse and felt like it was very low. He used a home pulse oximeter and stated that the heart rate on the pulse oximeter was in the 40s. He was concerned that potentially his pacemaker was not working appropriately. He also states that he occasionally has been feeling somewhat lightheaded. He does not feel like the lightheadedness is associated with any low heart rate. Related Data Home Medications Medication Instructions Recorded Confirmed aspirin 325 mg PO QDAY #0 04/29/17 atorvastatin [Lipitor] #0 04/29/17 hydrochlorothiazide #0 04/29/17 lisinopril #0 04/29/17 Previous Rx's Medication Instructions Recorded benzonatate [Tessalon Perles] 100 mg PO TID #30 cap 04/29/17 oseltamivir [Tamiflu] 75 mg OR BID #10 cap 04/29/17 promethazine-codeine 5 - 10 ml PO Q4HP PRN #120 ml 04/29/17 Allergies Allergy/AdvReac Type Severity Reaction Status Date / Time No Known Allergies Allergy Uncoded 11/21/19 16:33 Review of Systems Constitutional Constitutional: Denies fever(s) and Denies headache(s) ENT Ears, Nose, Mouth, and Throat: Denies headache(s) Cardiovascular Cardiovascular: Denies chest pain, Denies leg edema, Reports lightheadedness, Denies dyspnea and Reports slow heart rate Respiratory Respiratory: Denies cough and Denies dyspnea Gastrointestinal Gastrointestinal: Denies nausea Integumentary/Breasts Skin/Breast: Denies lesions and Denies rash Neurologic Neurologic: Denies behavioral changes and Denies headache(s) Psychiatric Psychiatric: Denies anxiety and Denies behavioral changes Hematologic/Lymphatic Hematologic/Lymphatic: Denies easy bleeding and Denies easy bruising Allergic/Immunologic Allergic/Immunologic: Denies urticaria Patient History Medical History Pacemaker (Acute) Social History Smoking Status: Never smoker Smoking Status: Never smoker alcohol intake frequency: 0-2 drinks per day Alcohol type: beer Substance Use Type: does not use Exam Initial Vital Signs Initial Vital Signs: Vital Signs Blood Pressure 179/82 H 11/21/19 16:21 Const General: cooperative, comfortable and well developed Limitations: mental status not altered HENMT Head: normal to inspection and normocephalic Resp Effort & Inspection: normal respiratory effort Auscultation: clear to auscultation bilaterally Cardio Rate: regular rate Rhythm: regular rhythm Pulses: radial pulses present GI Inspection: non-distended Palpation: soft Skin Lesions: no lesions Rashes: no rashes Neuro General: patient alert, patient awake and patient oriented x3 Cognition: normal cognition Speech: speech normal Extrem General: normal to inspection and capillary refill normal Psych Appearance: grossly normal and well kempt Course Orders Ordered: ED Orders 11/21/19 16:43 Complete Blood Count AUTO DIFF Stat Comprehensive Metabolic Panel Stat Lipase Stat Magnesium Stat Phosphorous Stat Vital Signs Vital signs: Vital Signs - 8 hr 11/21/19 16:21 11/21/19 16:22 11/21/19 16:28 Temperature 98.4 F Pulse Rate 78 79 Respiratory Rate 14 Blood Pressure 179/82 H 179/82 H Pulse Oximetry 100 100 11/21/19 16:30 11/21/19 16:40 11/21/19 17:00 Temperature Pulse Rate 78 73 74 Respiratory Rate 21 14 14 Blood Pressure 177/106 H 169/77 H Pulse Oximetry 100 99 100 11/21/19 17:01 11/21/19 17:20 11/21/19 17:30 Temperature Pulse Rate 62 70 70 Respiratory Rate 11 L 17 11 L Blood Pressure 162/74 H 160/81 H Pulse Oximetry 100 99 99 11/21/19 17:41 11/21/19 18:00 11/21/19 18:20 Temperature Pulse Rate 60 60 72 Respiratory Rate 13 10 L 22 Blood Pressure 134/66 129/74 169/100 H Pulse Oximetry 99 100 99 11/21/19 18:30 11/21/19 18:40 11/21/19 19:00 Temperature Pulse Rate 60 60 60 Respiratory Rate 26 H 11 L 11 L Blood Pressure 150/83 H 148/74 H Pulse Oximetry 98 99 99 11/21/19 19:05 Temperature Pulse Rate 65 Respiratory Rate 24 Blood Pressure 146/83 H Pulse Oximetry 99 MDM - Arrhythmia/Palpitations Lab Data Attestation: I reviewed the patient's lab results. Result diagrams: 11/21/19 16:43 11/21/19 16:43 Labs: Lab Results 11/21/19 11/21/19 Range/Units 16:43 16:43 WBC 6.6 (4.5-11.0) X10^3/uL RBC 4.25 L (4.5-5.9) X10^6/uL Hgb 13.4 L (13.5-17.5) g/dL Hct 39.6 L (41-53) % MCV 93.1 (80-100) fL MCH 31.6 (26-34) PG MCHC 34.0 (30-36) % RDW 13.5 (11.6-14.8) % Plt Count 214 (150-400) X10^3/uL Neut % (Auto) 55.6 (50-75) % Lymph % (Auto) 30.8 (25-40) % Caroline % (Auto) 7.0 (3-14) % Eos % (Auto) 5.3 H (2-4) % Baso % (Auto) 1.3 (0-2) % Neut # (Auto) 3700 (4288-0527) /uL Lymph # (Auto) 2000 (8376-8259) /uL Caroline # (Auto) 500 (0-900) /uL Eos # (Auto) 300 (0-450) /uL Baso # (Auto) 100 (0-100) /uL Sodium 137 (137-145) mmol/L Potassium 3.9 (3.4-5.1) mmol/L Chloride 104 (98-107) mmol/L Carbon Dioxide 26 (22-32) mmol/L BUN 15 (9-20) mg/dL Creatinine 0.83 (0.66-1.25) mg/dL Estimated GFR > 60.0 (>60) mL/min BUN/Creatinine Ratio 18.1 (6-22) Glucose 145 H (80-110) mg/dL Calcium 8.8 (8.4-10.2) mg/dL Phosphorus 3.0 (2.3-3.7) mg/dL Magnesium 2.0 (1.6-2.3) mg/dL Total Bilirubin 0.6 (0.2-1.3) mg/dL AST 24 (17-59) IU/L ALT 19 (<50) IU/L Alkaline Phosphatase 79 (38-126) U/L Total Protein 7.2 (6.3-8.2) g/dL Albumin 4.2 (3.5-5.0) g/dL Globulin 3.0 (1.7-4.1) g/dL Albumin/Globulin Ratio 1.4 (1.0-2.8) Lipase 60 (23-300) U/L ECG Data Attestation: I personally reviewed and interpreted this ECG as follows: Prior ECG tracings: not available for review Interpretation: Ventricularly paced Rate 85 MDM Narrative Medical decision making narrative: Patient does have a [facility] [employer] DDD pacemaker that was interrogated here in the emergency department which shows no abnormalities. Pacemaker is functioning appropriately. I did discuss the case with the [facility] emergency medical services coordinator. Patient's laboratory unremarkable. He is paced and sensed appropriately on his EKG. Discussed this with the patient. Feel patient be safely discharged home without further workup we did discuss return precautions and follow-up instructions. Patient expressed understanding and agreement. Discharge Plan Departure Patient Disposition: Home Clinical Impression: Palpitations Discharge Date/Time: 11/21/19 19:12 Instructions: DI for Palpitations Activity Restrictions/Additional Instructions: Interrogation of your pacemaker today shows that everything is working appropriately. Your electrolytes are unremarkable. Recommend that you continue all of your medications as directed. I also recommend that you contact the health human resources partner here at the hospital at [phone]. This individual can help you with establishing a new primary provider. Return to the emergency department for any new or worsening symptoms Prescriptions: No Action atorvastatin [Lipitor] 10 mg tablet Qty: 0 RF: 0 hydrochlorothiazide 12.5 mg capsule Qty: 0 RF: 0 lisinopril 2.5 mg tablet Qty: 0 RF: 0 aspirin 325 MG tablet,delayed release (DR/EC) 325 mg PO QDAY Qty: 0 RF: 0 promethazine-codeine 6.25 MG/10 MG syrup 5 - 10 ml PO Q4HP PRNQty: 120 RF: 0 benzonatate [Tessalon Perles] 100 MG capsule 100 mg PO TID Qty: 30 RF: 0 oseltamivir [Tamiflu] 75 MG capsule 75 mg OR BID Qty: 10 RF: 0 Referrals: Guzman Claros MD [Primary Care Provider] -
[2019-11-21 18:39] LABS: Alanine Aminotransferase 19 IU/L (<50); Albumin 4.2 g/dL (3.5-5.0); Albumin Globulin Ratio 1.4 (1.0-2.8); Alkaline Phosphatase 79 U/L (38-126); Aspartate Aminotransferase 24 IU/L (17-59); BUN Creatinine Ratio 18.1 (6-22); Bilirubin Total 0.6 mg/dL (0.2-1.3); Blood Urea Nitrogen 15 mg/dL (9-20); Calcium 8.8 mg/dL (8.4-10.2); Carbon Dioxide 26 mmol/L (22-32); Chloride 104 mmol/L (98-107); Estimated Glomerular Filt Rate > 60.0 mL/min (>60); Glucose 145 mg/dL (80-110); HEMOLYSIS < 15 (0-50); Lipase 60 U/L (23-300); Potassium 3.9 mmol/L (3.4-5.1); Sodium 137 mmol/L (137-145); Total Protein 7.2 g/dL (6.3-8.2)
== END 2019-11-21 19:12 | disposition home or self-care (01) ==
PROVIDERS: Emergency Provider Emergency Medicine; PCP Internal Medicine
DX: R00.2 Palpitations (principal); Z95.0 Presence of cardiac pacemaker
CPT/HCPCS: 36415; 80053; 83690; 83735; 84100; 85025; 93005; 99283; 99284

== ENCOUNTER → 2020-07-22 09:13 | Outpatient (CLI) | payer MEDICARE, SELFPAY ==
[2020-07-22 10:39] LABS: BUN Creatinine Ratio 18.1 (6-22); Blood Urea Nitrogen 15 mg/dL (9-20); Calcium 9.7 mg/dL (8.4-10.2); Carbon Dioxide 29 mmol/L (22-32); Chloride 104 mmol/L (98-107); Estimated Glomerular Filt Rate > 60.0 mL/min (>60); Glucose 99 mg/dL (80-110); HEMOLYSIS < 15 (0-50); Potassium 5.3 mmol/L (3.4-5.1); Sodium 140 mmol/L (137-145)
== END ==
PROVIDERS: PCP Internal Medicine; Referring Provider Internal Medicine Cardiovascular Disease; Visit Provider Internal Medicine Cardiovascular Disease
DX: I10 Essential (primary) hypertension (principal)
CPT/HCPCS: 36415; 80048

== ENCOUNTER → 2020-08-01 08:05 | Outpatient (CLI) | payer MEDICARE, SELFPAY ==
[2020-08-01 09:36] LABS: BUN Creatinine Ratio 17.4 (6-22); Blood Urea Nitrogen 15 mg/dL (9-20); Calcium 9.1 mg/dL (8.4-10.2); Carbon Dioxide 30 mmol/L (22-32); Chloride 104 mmol/L (98-107); Estimated Glomerular Filt Rate > 60.0 mL/min (>60); Glucose 94 mg/dL (80-110); HEMOLYSIS < 15 (0-50); Magnesium 2.1 mg/dL (1.6-2.3); Potassium 4.1 mmol/L (3.4-5.1); Sodium 140 mmol/L (137-145)
[2020-08-01 10:55] LABS: Thyroid Stimulating Hormone 2.44 uIU/mL (0.47-4.68)
== END ==
PROVIDERS: PCP Internal Medicine; Referring Provider Internal Medicine Cardiovascular Disease; Visit Provider Internal Medicine Cardiovascular Disease
DX: I10 Essential (primary) hypertension (principal); I47.2 Ventricular tachycardia; I44.2 Atrioventricular block, complete
CPT/HCPCS: 36415; 80048; 83735; 84443

== ENCOUNTER → 2020-08-04 12:05 | Outpatient (CLI) | payer MEDICARE, SELFPAY ==
--- NOTE | 2020-08-04 12:10 | DI.RAD.S_ITS ---
PROCEDURE: XR HIP W PEL IF DONE JIE MIN 4V INDICATIONS: BI HIP/ LOW BACK PAIN, RADICULOPATHY TECHNIQUE: AP pelvis with lateral view(s) of the bilateral hip(s). COMPARISON: None. FINDINGS: Bones: No fractures or dislocations. Pelvic ring appears intact. [id number] bilateral hip joint osteoarthritic changes are seen. No evidence of avascular necrosis of femoral head. No suspicious bony lesions. Soft tissues: The visualized bowel gas pattern is normal. No suspicious soft tissue calcifications. IMPRESSION: Symmetric appearing [id number]-[id number] bilateral hip joint osteoarthritis. No hip fracture or dislocation. No evidence of avascular necrosis. Dictated by: Jonnathan Schofield M.D. on 08/04/2020 at 15:54 Approved by: Jonnathan Schofield M.D. on 08/04/2020 at 15:54
--- NOTE | 2020-08-04 12:10 | DI.RAD.S_ITS ---
PROCEDURE: XR LUMBAR SPINE 2-3V INDICATIONS: BI HIP/ LOW BACK PAIN, RADICULOPATHY TECHNIQUE: 3 views of the lumbar spine were acquired. COMPARISON: None. FINDINGS: Bones: 5 bfa-cim-oihaydh vertebrae are present. There is straightening of normal lumbar lordosis. Degenerative endplate changes at L2-3 through L5-S1 levels are seen.. No vertebral body compression fractures. No suspicious bony lesions. Soft tissues: Overlying bowel gas pattern is normal. No suspicious soft tissue calcifications. IMPRESSION: Degenerative disc disease at L2-3 through L5-S1 levels. No compression fracture or spondylolisthesis. Dictated by: Jonnathan Schofield M.D. on 08/04/2020 at 15:54 Approved by: Jonnathan Schofield M.D. on 08/04/2020 at 15:55
== END ==
PROVIDERS: PCP Physician Assistant; Referring Provider Physician Assistant; Visit Provider Physician Assistant
DX: M54.5 Low back pain (principal); M51.16 Intervertebral disc disorders with radiculopathy, lumbar region; M51.17 Intervertebral disc disorders with radiculopathy, lumbosacral region; M25.551 Pain in right hip; M25.552 Pain in left hip
CPT/HCPCS: 72100; 73522

== ENCOUNTER → 2020-09-02 10:40 | Outpatient (CLI) | payer MEDICARE, SELFPAY ==
--- NOTE | 2020-09-02 10:42 | DI.NM.S_ITS ---
PROCEDURE: NM DORIAN PERF SPECT R&S PHARM Rest and pharmacological stress myocardial perfusion SPECT with gated imaging and ejection fraction RADIOPHARMACEUTICAL: 9.8 mCi Tc-99m tetrafosmin IV at rest and 26.2 mCi Tc-99m tetrafosmin IV at peak effect of pharmacological stress. Jeq-zts-iwpqwqca was performed. INDICATIONS: Ventricular tachycardia TECHNIQUE: Radiopharmaceutical was injected at peak stress test, and also at rest. SPECT images were obtained. SPECT myocardial perfusion images were displayed in short axis, horizontal long axis, and vertical long axis views. Gated images were reviewed using [employer] software. COMPARISON: None. CARDIAC STRESS: A pharmacologic stress test was performed under the supervision of an attending staff, using an infusion of lexiscan 0.4mg IV X1. Hemodynamic data: There is normal blood pressure and heart rate response to pharmacologic stress. Symptoms: The patient denied anginal chest pain. Aminophylline: none EKG: Resting ECG shows sinus rhythm with ventricular pacing. Non-diagnostic ECG with lexiscan; no ectopy. FINDINGS: Raw data: There is good myocardial uptake of radiotracer. No significant motion artifacts. Shlv-md-pbtyz ratio is 0.34 (normal is less than 0.38 for tetrafosmin tracer). Left ventricle function: Gated images demonstrate normal left ventricular wall thickening. No segmental wall motion abnormalities. No transient ischemic dilation; TID is 0.86 (normal less than 1.3). Left ventricle resting end diastolic volume is 116 mL. Left ventricle stress ejection fraction is 73%; normal range is above 45%. Myocardial perfusion: There is a moderately intense fixed defect in the septum that improves slightly with prone imaging, suggesting either prior non-transmural infarction or ventricular pacing. No ischemia. IMPRESSION: Abnormal nuclear stress test due to either prior non-transmural infarction or ventricular pacing. No ischemia. 1) There is a moderately intense fixed defect in the septum that improves slightly with prone imaging, suggesting either prior non-transmural infarction or ventricular pacing. No ischemia. 2) Normal left ventricular size, wall motion, and systolic function (EF post stress 73%). 3) ECG non-diagnostic due to baseline ventricular pacing. 4) No angina during the study. 5) No prior nuclear stress test available for comparison. Dictated by: Celia Mayorga MD on 09/05/2020 at 12:12 Approved by: Celia Mayorga MD on 09/05/2020 at 12:16
--- NOTE | 2020-09-02 10:43 | DI.ECHO.S_ITS ---
[facility] +---------+ : : [address] : : : : [id number] : : : : Phone: [phone] Echocardiogram Report + + :Name: DEANDRE RIVERA Study Date: 09/02/2020 Height: 68 in : :[facility] : Weight: 160 lb : : Gender: Male BSA: 1.9 m2 : :: 1950 Age: 69 yrs BP: 150/84 mmHg: :Reason For Study: Atrial fibrillation : :Ordering Physician: Nicole : :Cale Freitas Performed By: Herbert Rees : :Referring: NICOLE FREITAS : + + Interpretation Summary The left ventricle is normal in size and wall thickness. The ejection fraction is estimated to be 60-65%. The right ventricle is normal in size and function. There is a pacemaker lead in the right ventricle. There is mild tricuspid regurgitation. The right ventricular systolic pressure is estimated to be at least 31 mmHg based on an estimated right atrial pressure of 3 mm Hg. Procedure: A two-dimensional transthoracic echocardiogram with color flow and Doppler was performed. The study quality was technically adequate. There is no prior echocardiogram noted for this patient. The patient was in sinus rhythm with heart rates between 69-76 bpm during the exam. Left Ventricle: The left ventricle is normal in size and wall thickness. There is no thrombus. Left ventricular systolic function is normal. The ejection fraction is estimated to be 60-65%. There are no focal wall motion abnormalities. MV E/A: 1.2 Med Peak E' Perez: 8.3 cm/sec E/E' med: 12.1. Right Ventricle: The right ventricle is normal in size and function. There is a pacemaker lead in the right ventricle. Atria: Both atria are normal in size. There is no Doppler evidence for an interatrial shunt. The thickening of interatrial septum suggests lipomatous hypertrophy. Mitral Valve: There is mild mitral annular calcification. The mitral valve leaflets appear borderline thickened, but open well. There is trace mitral regurgitation. Aortic Valve: The aortic valve is trileaflet. The aortic valve is slightly calcified. There is no aortic valve stenosis. No aortic regurgitation is present. Tricuspid Valve: The tricuspid valve is normal. There is mild tricuspid regurgitation. The right ventricular systolic pressure is estimated to be at least 31 mmHg based on an estimated right atrial pressure of 3 mm Hg. Pulmonic Valve: The pulmonic valve is normal in structure and function. There is mild pulmonic regurgitation. Great Vessels: The aortic root is normal size. The dimensions of the ascending aorta are normal. The IVC is of normal diameter and collapses greater than 50% with a sniff. This suggests a low right atrial pressure of 3 mm Hg. Pericardium/ Pleura There is no pericardial effusion. There is no pleural effusion. MMode/2D Measurements & Calculations LVIDd: 5.1 cm LVOT diam: 2.0 cm LVIDs: 3.4 cm Ao root diam: 3.1 cm FS: 32.8 % asc Aorta Diam: 2.9 cm IVSd: 0.74 cm LVPWd: 0.75 cm LV pride. diameter/BSA (cm/m^2): 2.8 LV sys. diameter/BSA (cm/m^2): 1.8 LA A2 area: 12.3 cm2 RA long axis: 4.3 cm LA A4 area: 13.7 cm2 RA area: 11.7 cm2 LA length (vol): 4.1 cm RA vol: 27.3 ml LA vol: 35.1 ml RA : 14.7 ml/m2 LA vol index: 18.9 ml/m2 RVD1 (basal): 3.2 cm TAPSE: 2.6 cm Doppler Measurements & Calculations Ao V2 max: 150.7 cm/sec LVOT Max Perez: 121.9 cm/sec Ao V2 mean: 105.5 cm/sec LV V1 max P.9 mmHg Ao max P.1 mmHg LV V1 VTI: 25.7 cm Ao mean P.9 mmHg MILANA(I,D): 2.7 cm2 Ao V2 VTI: 29.2 cm MILANA(V,D): 2.4 cm2 sev ratio: 0.88 MILANA indexed to BSA (cm^2/m^2): 1.4 MV E max perez: 100.4 cm/sec TR max perez: 263.0 cm/sec MV A max perez: 81.5 cm/sec TR max P.7 mmHg MV E/A: 1.2 PA V2 max: 107.9 cm/sec Med Peak E' Perez: 8.3 cm/sec PA V2 mean: 73.5 cm/sec E/E' med: 12.1 PA mean P.4 mmHg Lat Peak E' Perez: 8.5 cm/sec PA pr(Accel): 35.4 mmHg E/E' lat: 11.8 E/e' average: 11.9 MV dec time: 0.22 sec SV([facility]): 77.5 ml Reading Physician:03:40 PM
[2020-09-02 12:45] LABS: COVID19 -Nasal RAPID Negative (Negative)
== END ==
PROVIDERS: PCP Physician Assistant; Referring Provider Internal Medicine Cardiovascular Disease; Visit Provider Internal Medicine Cardiovascular Disease
DX: I47.2 Ventricular tachycardia (principal); I25.10 Atherosclerotic heart disease of native coronary artery without angina pectoris; I25.84 Coronary atherosclerosis due to calcified coronary lesion; I07.1 Rheumatic tricuspid insufficiency
CPT/HCPCS: 78452; 87635; 93017; 93306; A9502; J2785

== ENCOUNTER → 2020-10-27 10:03 | Outpatient (CLI) | payer MEDICARE, SELFPAY ==
[2020-10-27 12:18] LABS: BUN Creatinine Ratio 19.8 (6-22); Blood Urea Nitrogen 18 mg/dL (9-20); Calcium 9.2 mg/dL (8.4-10.2); Carbon Dioxide 28 mmol/L (22-32); Chloride 104 mmol/L (98-107); Cholesterol 157 mg/dL (140-199); Estimated Glomerular Filt Rate > 60.0 mL/min (>60); Glucose 82 mg/dL (80-110); HDL Cholesterol 50 mg/dL (40-60); HEMOLYSIS < 15 (0-50); LDL Cholesterol Calculated 91 mg/dL (<100); Potassium 4.1 mmol/L (3.4-5.1); Sodium 140 mmol/L (137-145); Triglycerides 79 mg/dL (35-150)
== END ==
PROVIDERS: PCP Physician Assistant; Referring Provider Nurse Practitioner; Visit Provider Nurse Practitioner
DX: I10 Essential (primary) hypertension (principal); I44.7 Left bundle-branch block, unspecified; E78.5 Hyperlipidemia, unspecified; Z95.0 Presence of cardiac pacemaker
CPT/HCPCS: 36415; 80048; 80061

== ENCOUNTER 2021-01-16 08:15 | Outpatient (RCR) | payer MEDICARE, SELFPAY ==
--- NOTE | 2020-12-09 14:37 | PT.OIE ---
Current Diagnoses Disease of spinal cord, unspecified (12/09/20) Unspecified abnormalities of gait and mobility (12/09/20) Past Medical History (Last Reviewed 11/21/19 @ 23:53 by Bryan Angeles DO) Pacemaker Visit Care Team Role Provider Type Randee Torres PA-C Primary Care Provider Non-Staff Specialty: Medical Address: [address] [place] [address], [id number] Email: Attending Provider Referring Provider Specialty: Address: Phone: Fax: Email: Physical Therapy Initial Evaluation PT-OP-A Visit Information Start: 12/08/20 16:08 Freq: Status: Active Protocol: Document 12/09/20 07:32 MB (Rec: 12/09/20 08:03 MB [id number]) Out-Patient Physical Therapy Visit Information Visit Information Visit Type Initial Evaluation Visit Note Medicare 04/12 before KX Visit Start Time 07:32 Visit Stop Time 08:11 Total Visit Minutes 39 Visit Number 1 Evaluation Information Evaluation Date 12/09/20 Precautions Precautions Neurologic gait and high fall risk PT-OP-B Current Condition Start: 12/08/20 16:08 Freq: Status: Active Protocol: Document 12/09/20 07:32 MB (Rec: 12/09/20 08:03 MB [id number]) Current Condition History of Current Condition Onset Date Many years Current Complaints Back pain and trouble with gait History of Current Condition 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 12 years ago, it started affecting his gait. 9 years ago, he had a cervical fusion and laminectomy. He then had B midline sparing laminectomy L4-5 in 2018. He had PT at this clinic and it went well. He has con't with stretching and back exercises. His walking did not get better after the surgery or PT. He had the surgery to help the back pain and it did help. His left leg is slightly weaker. He lives in a ranch style house, has no stairs, uses a straight cane and has walking sticks. His sensation and strength in his feet are good enough to drive. He returns to PT because his proprioception is getting worse. His back pain is coming back. His spinal surgeon said there isn't anything to be done surgically. He was referred to neurology who ordered an EMG and he was told there was not any changes since 2018. There is radiculopathy at L4-5 at least . PMH: TIA 2008, coronary disease, L BBB and PFO, pacer. Prior Treatments and Tests Surgeries, EMG Treatment Goals Patient/Caregiver Goals To work on gait and back pain. PT-OP-C Subjective Start: 12/08/20 16:08 Freq: Status: Active Protocol: Document 12/09/20 07:32 MB (Rec: 12/09/20 08:03 MB [id number]) OP-PT Subjective Patient Comments Patient Comments See history of current condition. Patient Questionnaires Lower Extremity Functional Scale LEFS Score 46 LEFS Impairment 40 to 59% Impaired (Score 32- 47) Oswestry Low Back Index Oswestry Score 8 Oswestry Impairment 1 to 19% Impaired (Score 1-19) PT-OP-D Balance Start: 12/08/20 16:08 Freq: Status: Active Protocol: Document 12/09/20 07:32 MB (Rec: 12/09/20 14:37 MB [id number]) OP-PT Balance Assessment Sitting Balance Static Sitting Balance Ability Good Dynamic Sitting Balance Ability Good Sitting Balance Comments UE support for sitting when PT checks for clonus ankles Standing Balance Static Standing Balance Ability Good Dynamic Standing Balance Ability Fair Standing Balance Comments Pt can stand statically without AD for postural assessment wearing socks Valdivia Fall Scale Copyright Permission PT-OP-G Mobility & Gait Start: 12/08/20 16:08 Freq: Status: Active Protocol: Document 12/09/20 07:32 MB (Rec: 12/09/20 14:37 MB [id number]) OP Gait Assessment Gait Gait Assistance Required: Independent Distance (Feet) 50 Assistive Devices Assistive Device Straight Cane Orthotic/Prosthetic Devices or Brace: No Gait Deviations General Gait Pattern Ataxic,Decreased Stride Length ,Decreased Feet Clearance,Step -to Gait,Wide Based Gait Factors Limiting Gait Function Factors Limiting Gait Function Abnormal Tonal Influences, Decreased Activity Tolerance, Decreased Strength, Incoordination,Poor Balance Comments Gait Comments Pt gait is ataxic, spinal cord appearing with step-to gait left and then right foot with cane in right hand each time he gets up to start walking and that improves to better step-through after walking about 10 steps. His gait is similar when the cane is in his right hand and without AD. Slow movement and occ left hip buckle, little right toe push off and right ankle remains in rigid neutral position. The bottom of the right shoe has more wear. PT-OP-J Posture/Palpation/Skin Start: 12/08/20 16:08 Freq: Status: Active Protocol: Document 12/09/20 07:32 MB (Rec: 12/09/20 14:37 MB [id number]) Posture Evaluation Comments Posture Comments Pt standing in socks: Rounded shoulders, right scapula and AC joint mildly lower than the left, left lower ribs and spine with some curvature/ posterior prominence, decreased thoracic kyphosis and lumbar lordosis, anterior tilt pelvis, left iliac crest is higher than the right. PT-OP-M Strength Start: 12/08/20 16:08 Freq: Status: Active Protocol: Document 12/09/20 07:32 MB (Rec: 12/09/20 14:37 MB [id number]) Hip Strength Hip Manual Muscle Testing Bilateral Flexion (L2) 4 Good Abduction 4 Good Adduction 4 Good Comments Testing in supine, spine not loaded Knee Strength Knee Manual Muscle Testing Right Flexion (S2) 4 Good Extension (L3) 5 Normal Comments Testing in supine, spine not loaded Left Flexion (S2) 4 Good Extension (L3) 5 Normal Comments Testing in supine, spine not loaded Ankle/Foot Strength Ankle and Foot Manual Muscle Testing Left Dorsiflexion (L4) 5 Normal Inversion 4 Good Eversion (S1) 3+ Fair+ Comments Testing in supine, spine not loaded Some limitations in ankle movement Right Dorsiflexion (L4) 5 Normal Inversion 4 Good Eversion (S1) 4 Good Comments Testing in supine, spine not loaded Some limitations in ankle movement Toe Strength Toe Manual Muscle Testing Left Great Toe Extension 4 Good Right Great Toe Extension 4 Good PT-OP-T Assessment and Plan Start: 12/08/20 16:08 Freq: Status: Active Protocol: Document 12/09/20 07:32 MB (Rec: 12/09/20 14:26 MB [id number]) Physical Therapy Assessment Rehab Potential Rehabilitation Potential Fair Evaluation Complexity Number of Personal Factors/Comorbidities 0 Number of Body Systems Impaired 3 Clinical Presentation at Evaluation Evolving Impairments Impairments Activity Tolerance,Balance, Coordination,Functional Activities,Functional Mobility ,Gait,Pain,Posture,Strength, Transfers Other Impairments Body systems affected include musculoskeletal, neuromuscular , neurological, cardiac. His clinical presentation is evolving. Other Concerns Fall Risk Yes Goals 4 Supervisor Painting Shipyard Goal (LTG) Pt will perform progressive HEP including pelvic realignment, LE flexibility, core and LE strengthening, balance and gait exercises to improve balance, gait and pain by 02/08/21. LTG Duration 8 weeks 3 Skilled Nursing Goal (LTG) Pt will report a 30% improvement in back pain to improve his quality of life by 02/08/21. LTG Duration 8 weeks 2 Super[employer] Goal (LTG) Pt will perform WNLs on Tinetti balance test to decrease fall risk by 02/08/21 . LTG Duration 8 weeks 1 Skilled Nursing Goal (LTG) Pt will gait train at least 1000 feet in 6 minutes with LRAD to improve community ambulation and safety with short hikes by 02/08/21. LTG Duration 8 weeks Assessment Summary Assessment Pt is a 70 y/o male presenting with imbalance, neurological gait, functional weakness and back pain in setting of cervical and lumbar fusions and progressive congenital spinal stenosis and degeneration. Pt states that the surgeon told him there is no surgical intervention option. He also states that the neurologist did not have anything to offer except referral for PT. He did have PT in the past in 2018 after the lumbar surgery. Pt presents with postural changes , mild B hip and ankle weakness in supine and more noticeable leg weakness when spine is loaded with upright position and gait. He reports feeling off on his proprioception. Proprioceptive testing of toes today is normal. He has sustained and strong clonus with left rapid passive DF and mild clonus that fatigue with the right today. Overall, his functional presentation is fair to guarded. He will benefit from PT trial to improve pelvic alignment, core and LE strength, balance and gait. Barriers include progressive spinal changes. Physical Therapy Plan Frequency and Duration Frequency of Treatment 2x/Week Duration of Treatment 8 weeks Plan of Care Start Date 12/09/20 Plan of Care End Date 02/08/21 Therapeutic Interventions Therapeutic Interventions Aquatic Therapy,Balance Training,Canalithic Repositioning,Coordination Training,Gait Training,Home Exercise Program,Joint Mobilizations,Manual Therapy, Neuromuscular Re-education, Patient/Caregiver Education, Self-Care/Home Management,Soft Tissue Mobilization,Taping, Therapeutic Activities, Therapeutic Exercises Modalities Cold Pack/Ice Massage,Hot Packs Next Visit Focus/Plan Next Note Type Treatment Note Next Visit Plan Initiate pelvic realignment exercises, abdominal drawing in and flexibility exercises
--- NOTE | 2020-12-09 14:37 | PT.OPPOC ---
Physical, Occupational & Speech Therapy At [facility] Current Diagnoses Disease of spinal cord, unspecified (12/09/20) Unspecified abnormalities of gait and mobility (12/09/20) Visit Care Team Role Provider Type Randee Torres PA-C Primary Care Provider Non-Staff Specialty: Medical Address: [address] [place] [address], [id number] Email: Attending Provider Referring Provider Specialty: Address: Phone: Fax: Email: Plan Of Care PT-OP-T Assessment and Plan Start: 12/08/20 16:08 Freq: Status: Active Protocol: Document 12/09/20 07:32 MB (Rec: 12/09/20 14:26 MB [id number]) Physical Therapy Assessment Rehab Potential Rehabilitation Potential Fair Evaluation Complexity Number of Personal Factors/Comorbidities 0 Number of Body Systems Impaired 3 Clinical Presentation at Evaluation Evolving Impairments Impairments Activity Tolerance,Balance, Coordination,Functional Activities,Functional Mobility ,Gait,Pain,Posture,Strength, Transfers Other Impairments Body systems affected include musculoskeletal, neuromuscular , neurological, cardiac. His clinical presentation is evolving. Other Concerns Fall Risk Yes Goals 4 Detention Goal (LTG) Pt will perform progressive HEP including pelvic realignment, LE flexibility, core and LE strengthening, balance and gait exercises to improve balance, gait and pain by 02/08/21. LTG Duration 8 weeks 3 Detention Goal (LTG) Pt will report a 30% improvement in back pain to improve his quality of life by 02/08/21. LTG Duration 8 weeks 2 Detention Goal (LTG) Pt will perform WNLs on Tinetti balance test to decrease fall risk by 02/08/21 . LTG Duration 8 weeks 1 Automotive Refinisher Goal (LTG) Pt will gait train at least 1000 feet in 6 minutes with LRAD to improve community ambulation and safety with short hikes by 02/08/21. LTG Duration 8 weeks Assessment Summary Assessment Pt is a 70 y/o male presenting with imbalance, neurological gait, functional weakness and back pain in setting of cervical and lumbar fusions and progressive congenital spinal stenosis and degeneration. Pt states that the surgeon told him there is no surgical intervention option. He also states that the neurologist did not have anything to offer except referral for PT. He did have PT in the past in 2018 after the lumbar surgery. Pt presents with postural changes , mild B hip and ankle weakness in supine and more noticeable leg weakness when spine is loaded with upright position and gait. He reports feeling off on his proprioception. Proprioceptive testing of toes today is normal. He has sustained and strong clonus with left rapid passive DF and mild clonus that fatigue with the right today. Overall, his functional presentation is fair to guarded. He will benefit from PT trial to improve pelvic alignment, core and LE strength, balance and gait. Barriers include progressive spinal changes. Physical Therapy Plan Frequency and Duration Frequency of Treatment 2x/Week Duration of Treatment 8 weeks Plan of Care Start Date 12/09/20 Plan of Care End Date 02/08/21 Therapeutic Interventions Therapeutic Interventions Aquatic Therapy,Balance Training,Canalithic Repositioning,Coordination Training,Gait Training,Home Exercise Program,Joint Mobilizations,Manual Therapy, Neuromuscular Re-education, Patient/Caregiver Education, Self-Care/Home Management,Soft Tissue Mobilization,Taping, Therapeutic Activities, Therapeutic Exercises Modalities Cold Pack/Ice Massage,Hot Packs Next Visit Focus/Plan Next Note Type Treatment Note Next Visit Plan Initiate pelvic realignment exercises, abdominal drawing in and flexibility exercises Plan of Care Dates Plan of Care Start Date 12/09/20 Plan of Care End Date 02/08/21 Electronically Signed by: Fabienne Blank PT 12/09/20 [id number] Please Sign and Return: I have reviewed this Plan of Care and certify that the skilled therapy services above are required to meet the patient?s needs. Physician Signature Date Printed Name and Credentials Clinical Instructor Signature Printed Name and Credentials
--- NOTE | 2020-12-12 08:54 | PT.OTN ---
Current Diagnoses Disease of spinal cord, unspecified (12/12/20) Unspecified abnormalities of gait and mobility (12/12/20) Physical Therapy Treatment Note PT-OP-A Visit Information Start: 12/08/20 16:08 Freq: Status: Active Protocol: Document 12/12/20 08:13 MB (Rec: 12/12/20 08:53 MB [id number]) Out-Patient Physical Therapy Visit Information Visit Information Visit Type Treatment Note Visit Note Medicare, 05/13 before KX Visit Start Time 08:13 Visit Stop Time 08:51 Total Visit Minutes 38 Visit Number 2 Precautions Precautions Neurologic gait and high fall risk PT-OP-B Current Condition Start: 12/08/20 16:08 Freq: Status: Active Protocol: Document 12/09/20 07:32 MB (Rec: 12/09/20 08:03 MB [id number]) Current Condition History of Current Condition Onset Date Many years Current Complaints Back pain and trouble with gait History of Current Condition 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 12 years ago, it started affecting his gait. 9 years ago, he had a cervical fusion and laminectomy. He then had B midline sparing laminectomy L4-5 in 2018. He had PT at this clinic and it went well. He has con't with stretching and back exercises. His walking did not get better after the surgery or PT. He had the surgery to help the back pain and it did help. His left leg is slightly weaker. He lives in a ranch style house, has no stairs, uses a straight cane and has walking sticks. His sensation and strength in his feet are good enough to drive. He returns to PT because his proprioception is getting worse. His back pain is coming back. His spinal surgeon said there isn't anything to be done surgically. He was referred to neurology who ordered an EMG and he was told there was not any changes since 2018. There is radiculopathy at L4-5 at least . PMH: TIA 2008, coronary disease, L BBB and PFO, pacer. Prior Treatments and Tests Surgeries, EMG Treatment Goals Patient/Caregiver Goals To work on gait and back pain. PT-OP-C Subjective Start: 12/08/20 16:08 Freq: Status: Active Protocol: Document 12/12/20 08:13 MB (Rec: 12/12/20 08:53 MB [id number]) OP-PT Subjective Patient Comments Patient Comments Pt states that he has the most pain with changing positions such as moving to standing or when going to sit down after standing up a long time. PT-OP-D Balance Start: 12/08/20 16:08 Freq: Status: Active Protocol: Document 12/09/20 07:32 MB (Rec: 12/09/20 14:37 MB [id number]) OP-PT Balance Assessment Sitting Balance Static Sitting Balance Ability Good Dynamic Sitting Balance Ability Good Sitting Balance Comments UE support for sitting when PT checks for clonus ankles Standing Balance Static Standing Balance Ability Good Dynamic Standing Balance Ability Fair Standing Balance Comments Pt can stand statically without AD for postural assessment wearing socks Valdivia Fall Scale Copyright Permission PT-OP-G Mobility & Gait Start: 12/08/20 16:08 Freq: Status: Active Protocol: Document 12/09/20 07:32 MB (Rec: 12/09/20 14:37 MB [id number]) OP Gait Assessment Gait Gait Assistance Required: Independent Distance (Feet) 50 Assistive Devices Assistive Device Straight Cane Orthotic/Prosthetic Devices or Brace: No Gait Deviations General Gait Pattern Ataxic,Decreased Stride Length ,Decreased Feet Clearance,Step -to Gait,Wide Based Gait Factors Limiting Gait Function Factors Limiting Gait Function Abnormal Tonal Influences, Decreased Activity Tolerance, Decreased Strength, Incoordination,Poor Balance Comments Gait Comments Pt gait is ataxic, spinal cord appearing with step-to gait left and then right foot with cane in right hand each time he gets up to start walking and that improves to better step-through after walking about 10 steps. His gait is similar when the cane is in his right hand and without AD. Slow movement and occ left hip buckle, little right toe push off and right ankle remains in rigid neutral position. The bottom of the right shoe has more wear. PT-OP-J Posture/Palpation/Skin Start: 12/08/20 16:08 Freq: Status: Active Protocol: Document 12/09/20 07:32 MB (Rec: 12/09/20 14:37 MB [id number]) Posture Evaluation Comments Posture Comments Pt standing in socks: Rounded shoulders, right scapula and AC joint mildly lower than the left, left lower ribs and spine with some curvature/ posterior prominence, decreased thoracic kyphosis and lumbar lordosis, anterior tilt pelvis, left iliac crest is higher than the right. PT-OP-M Strength Start: 12/08/20 16:08 Freq: Status: Active Protocol: Document 12/09/20 07:32 MB (Rec: 12/09/20 14:37 MB [id number]) Hip Strength Hip Manual Muscle Testing Bilateral Flexion (L2) 4 Good Abduction 4 Good Adduction 4 Good Comments Testing in supine, spine not loaded Knee Strength Knee Manual Muscle Testing Right Flexion (S2) 4 Good Extension (L3) 5 Normal Comments Testing in supine, spine not loaded Left Flexion (S2) 4 Good Extension (L3) 5 Normal Comments Testing in supine, spine not loaded Ankle/Foot Strength Ankle and Foot Manual Muscle Testing Left Dorsiflexion (L4) 5 Normal Inversion 4 Good Eversion (S1) 3+ Fair+ Comments Testing in supine, spine not loaded Some limitations in ankle movement Right Dorsiflexion (L4) 5 Normal Inversion 4 Good Eversion (S1) 4 Good Comments Testing in supine, spine not loaded Some limitations in ankle movement Toe Strength Toe Manual Muscle Testing Left Great Toe Extension 4 Good Right Great Toe Extension 4 Good PT-OP-Q Treatments Start: 12/08/20 16:08 Freq: Status: Active Protocol: Document 12/12/20 08:13 MB (Rec: 12/12/20 08:53 MB [id number]) Therapeutic Exercises Supine Exercises Abdominal drawing in Comments Knees bent, flatten spine, pelvic tilt Hamstring stretch with AP and bending and straightening knee Side bilateral Comments 20 pumps of foot Randall stretch Side bilateral Comments Abdominal drawing in first and opposite leg bent, 30 sec Piriformis stretch Side bilateral Comments Cues to slow down and hold 30 sec each Quick bridges Side bilateral Comments Pt demos how he performs in the morning Pelvic realignment exercises Side bilateral Comments 5 rep, 3 sec hold all exercises Self-Care/Home Management Treatment Education Other Education Ed pt in better rowing position for his Concept II-- not flexing to stretch and then pull but rather, proper sequencing of legs and arms, ed in benefits of supine stretching rather than standing to help protect spine and reach the myofascial limitation of legs rather than spine PT-OP-T Assessment and Plan Start: 12/08/20 16:08 Freq: Status: Active Protocol: Document 12/12/20 08:13 MB (Rec: 12/12/20 08:53 MB [id number]) Physical Therapy Assessment Rehab Potential Rehabilitation Potential Fair Evaluation Complexity Number of Personal Factors/Comorbidities 0 Number of Body Systems Impaired 3 Clinical Presentation at Evaluation Evolving Impairments Impairments Activity Tolerance,Balance, Coordination,Functional Activities,Functional Mobility ,Gait,Pain,Posture,Strength, Transfers Other Impairments Body systems affected include musculoskeletal, neuromuscular , neurological, cardiac. His clinical presentation is evolving. Other Concerns Fall Risk Yes Goals 4 Barrelhead Inspector Goal (LTG) Pt will perform progressive HEP including pelvic realignment, LE flexibility, core and LE strengthening, balance and gait exercises to improve balance, gait and pain by 02/08/21. LTG Duration 8 weeks 3 Intermediate Goal (LTG) Pt will report a 30% improvement in back pain to improve his quality of life by 02/08/21. LTG Duration 8 weeks 2 Intermediate Goal (LTG) Pt will perform WNLs on Tinetti balance test to decrease fall risk by 02/08/21 . LTG Duration 8 weeks 1 Barrelhead Inspector Goal (LTG) Pt will gait train at least 1000 feet in 6 minutes with LRAD to improve community ambulation and safety with short hikes by 02/08/21. LTG Duration 8 weeks Assessment Summary Assessment Reviewed the exercises pt is already doing at home and provided education today about better body mechanics/ movement. Initiated pelvic realignment and supine LE flexibility exercises today. Con't progression. Physical Therapy Plan Frequency and Duration Frequency of Treatment 2x/Week Duration of Treatment 8 weeks Plan of Care Start Date 12/09/20 Plan of Care End Date 02/08/21 Therapeutic Interventions Therapeutic Interventions Aquatic Therapy,Balance Training,Canalithic Repositioning,Coordination Training,Gait Training,Home Exercise Program,Joint Mobilizations,Manual Therapy, Neuromuscular Re-education, Patient/Caregiver Education, Self-Care/Home Management,Soft Tissue Mobilization,Taping, Therapeutic Activities, Therapeutic Exercises Modalities Cold Pack/Ice Massage,Hot Packs Next Visit Focus/Plan Next Note Type Treatment Note Next Visit Plan Progress core progression and hip strengthening in hook lying, balance exercises, LE strengthening in sitting with bands
--- NOTE | 2020-12-15 08:09 | PT.OTN ---
Current Diagnoses Disease of spinal cord, unspecified (12/15/20) Unspecified abnormalities of gait and mobility (12/15/20) Physical Therapy Treatment Note PT-OP-A Visit Information Start: 12/08/20 16:08 Freq: Status: Active Protocol: Document 12/15/20 07:28 MB (Rec: 12/15/20 08:07 MB [id number]) Out-Patient Physical Therapy Visit Information Visit Information Visit Type Treatment Note Visit Note Medicare, 06/10 before KX Visit Start Time 07:28 Visit Stop Time 08:08 Total Visit Minutes 40 Visit Number 3 Precautions Precautions Neurologic gait and high fall risk PT-OP-B Current Condition Start: 12/08/20 16:08 Freq: Status: Active Protocol: Document 12/09/20 07:32 MB (Rec: 12/09/20 08:03 MB [id number]) Current Condition History of Current Condition Onset Date Many years Current Complaints Back pain and trouble with gait History of Current Condition 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 12 years ago, it started affecting his gait. 9 years ago, he had a cervical fusion and laminectomy. He then had B midline sparing laminectomy L4-5 in 2018. He had PT at this clinic and it went well. He has con't with stretching and back exercises. His walking did not get better after the surgery or PT. He had the surgery to help the back pain and it did help. His left leg is slightly weaker. He lives in a ranch style house, has no stairs, uses a straight cane and has walking sticks. His sensation and strength in his feet are good enough to drive. He returns to PT because his proprioception is getting worse. His back pain is coming back. His spinal surgeon said there isn't anything to be done surgically. He was referred to neurology who ordered an EMG and he was told there was not any changes since 2018. There is radiculopathy at L4-5 at least . PMH: TIA 2008, coronary disease, L BBB and PFO, pacer. Prior Treatments and Tests Surgeries, EMG Treatment Goals Patient/Caregiver Goals To work on gait and back pain. PT-OP-C Subjective Start: 12/08/20 16:08 Freq: Status: Active Protocol: Document 12/15/20 07:28 MB (Rec: 12/15/20 08:07 MB [id number]) OP-PT Subjective Patient Comments Patient Comments Pt states that the exercises are good and the hamstring stretch doesn't feel as much as the one he was doing bending over. PT-OP-D Balance Start: 12/08/20 16:08 Freq: Status: Active Protocol: Document 12/09/20 07:32 MB (Rec: 12/09/20 14:37 MB [id number]) OP-PT Balance Assessment Sitting Balance Static Sitting Balance Ability Good Dynamic Sitting Balance Ability Good Sitting Balance Comments UE support for sitting when PT checks for clonus ankles Standing Balance Static Standing Balance Ability Good Dynamic Standing Balance Ability Fair Standing Balance Comments Pt can stand statically without AD for postural assessment wearing socks Valdivia Fall Scale Copyright Permission PT-OP-G Mobility & Gait Start: 12/08/20 16:08 Freq: Status: Active Protocol: Document 12/09/20 07:32 MB (Rec: 12/09/20 14:37 MB [id number]) OP Gait Assessment Gait Gait Assistance Required: Independent Distance (Feet) 50 Assistive Devices Assistive Device Straight Cane Orthotic/Prosthetic Devices or Brace: No Gait Deviations General Gait Pattern Ataxic,Decreased Stride Length ,Decreased Feet Clearance,Step -to Gait,Wide Based Gait Factors Limiting Gait Function Factors Limiting Gait Function Abnormal Tonal Influences, Decreased Activity Tolerance, Decreased Strength, Incoordination,Poor Balance Comments Gait Comments Pt gait is ataxic, spinal cord appearing with step-to gait left and then right foot with cane in right hand each time he gets up to start walking and that improves to better step-through after walking about 10 steps. His gait is similar when the cane is in his right hand and without AD. Slow movement and occ left hip buckle, little right toe push off and right ankle remains in rigid neutral position. The bottom of the right shoe has more wear. PT-OP-J Posture/Palpation/Skin Start: 12/08/20 16:08 Freq: Status: Active Protocol: Document 12/09/20 07:32 MB (Rec: 12/09/20 14:37 MB [id number]) Posture Evaluation Comments Posture Comments Pt standing in socks: Rounded shoulders, right scapula and AC joint mildly lower than the left, left lower ribs and spine with some curvature/ posterior prominence, decreased thoracic kyphosis and lumbar lordosis, anterior tilt pelvis, left iliac crest is higher than the right. PT-OP-M Strength Start: 12/08/20 16:08 Freq: Status: Active Protocol: Document 12/09/20 07:32 MB (Rec: 12/09/20 14:37 MB [id number]) Hip Strength Hip Manual Muscle Testing Bilateral Flexion (L2) 4 Good Abduction 4 Good Adduction 4 Good Comments Testing in supine, spine not loaded Knee Strength Knee Manual Muscle Testing Right Flexion (S2) 4 Good Extension (L3) 5 Normal Comments Testing in supine, spine not loaded Left Flexion (S2) 4 Good Extension (L3) 5 Normal Comments Testing in supine, spine not loaded Ankle/Foot Strength Ankle and Foot Manual Muscle Testing Left Dorsiflexion (L4) 5 Normal Inversion 4 Good Eversion (S1) 3+ Fair+ Comments Testing in supine, spine not loaded Some limitations in ankle movement Right Dorsiflexion (L4) 5 Normal Inversion 4 Good Eversion (S1) 4 Good Comments Testing in supine, spine not loaded Some limitations in ankle movement Toe Strength Toe Manual Muscle Testing Left Great Toe Extension 4 Good Right Great Toe Extension 4 Good PT-OP-Q Treatments Start: 12/08/20 16:08 Freq: Status: Active Protocol: Document 12/15/20 07:28 MB (Rec: 12/15/20 08:07 MB [id number]) Therapeutic Exercises Supine Exercises Hook lying clam Side bilateral Comments Squeeze glutes first, level 2 band, 5 slow reps Core progression Supine Exercise Name Abdominal drawing in, knee rocking, HS, mini march, bridge, knee fall out Side bilateral Comments 2.5 min hold with bridge with level 2 band Abdominal drawing in Comments Perform as set progression for other core exercises Randall stretch Side bilateral Comments Re-ed pt to bend opposite leg Quick bridges Comments Pt performs 10 reps today Pelvic realignment exercises Side bilateral Comments 5 rep, 3 sec hold all exercises PT-OP-T Assessment and Plan Start: 12/08/20 16:08 Freq: Status: Active Protocol: Document 12/15/20 07:28 MB (Rec: 12/15/20 08:07 MB [id number]) Physical Therapy Assessment Rehab Potential Rehabilitation Potential Fair Evaluation Complexity Number of Personal Factors/Comorbidities 0 Number of Body Systems Impaired 3 Clinical Presentation at Evaluation Evolving Impairments Impairments Activity Tolerance,Balance, Coordination,Functional Activities,Functional Mobility ,Gait,Pain,Posture,Strength, Transfers Other Impairments Body systems affected include musculoskeletal, neuromuscular , neurological, cardiac. His clinical presentation is evolving. Other Concerns Fall Risk Yes Goals 4 Intermediate Goal (LTG) Pt will perform progressive HEP including pelvic realignment, LE flexibility, core and LE strengthening, balance and gait exercises to improve balance, gait and pain by 02/08/21. LTG Duration 8 weeks 3 Internet Marketing Analyst Goal (LTG) Pt will report a 30% improvement in back pain to improve his quality of life by 02/08/21. LTG Duration 8 weeks 2 Internet Marketing Analyst Goal (LTG) Pt will perform WNLs on Tinetti balance test to decrease fall risk by 02/08/21 . LTG Duration 8 weeks 1 Intermediate Goal (LTG) Pt will gait train at least 1000 feet in 6 minutes with LRAD to improve community ambulation and safety with short hikes by 02/08/21. LTG Duration 8 weeks Assessment Summary Assessment Progressed core and hip strengthening in hook lying today and pt performs well with cues to slow down and keep core engaged. Physical Therapy Plan Frequency and Duration Frequency of Treatment 2x/Week Duration of Treatment 8 weeks Plan of Care Start Date 12/09/20 Plan of Care End Date 02/08/21 Therapeutic Interventions Therapeutic Interventions Aquatic Therapy,Balance Training,Canalithic Repositioning,Coordination Training,Gait Training,Home Exercise Program,Joint Mobilizations,Manual Therapy, Neuromuscular Re-education, Patient/Caregiver Education, Self-Care/Home Management,Soft Tissue Mobilization,Taping, Therapeutic Activities, Therapeutic Exercises Modalities Cold Pack/Ice Massage,Hot Packs Next Visit Focus/Plan Next Note Type Treatment Note Next Visit Plan Consider therapy ball, balance exercises, LE strengthening in sitting with bands, body mechanics training
--- NOTE | 2020-12-20 09:01 | PT.OTN ---
Current Diagnoses Disease of spinal cord, unspecified (12/20/20) Unspecified abnormalities of gait and mobility (12/20/20) Physical Therapy Treatment Note PT-OP-A Visit Information Start: 12/08/20 16:08 Freq: Status: Active Protocol: Document 12/20/20 08:17 MB (Rec: 12/20/20 09:00 MB [id number]) Out-Patient Physical Therapy Visit Information Visit Information Visit Type Treatment Note Visit Note Medicare, 07/11 before KX Visit Start Time 08:17 Visit Stop Time 09:00 Total Visit Minutes 43 Visit Number 4 Precautions Precautions Neurologic gait and high fall risk PT-OP-B Current Condition Start: 12/08/20 16:08 Freq: Status: Active Protocol: Document 12/09/20 07:32 MB (Rec: 12/09/20 08:03 MB [id number]) Current Condition History of Current Condition Onset Date Many years Current Complaints Back pain and trouble with gait History of Current Condition 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 12 years ago, it started affecting his gait. 9 years ago, he had a cervical fusion and laminectomy. He then had B midline sparing laminectomy L4-5 in 2018. He had PT at this clinic and it went well. He has con't with stretching and back exercises. His walking did not get better after the surgery or PT. He had the surgery to help the back pain and it did help. His left leg is slightly weaker. He lives in a ranch style house, has no stairs, uses a straight cane and has walking sticks. His sensation and strength in his feet are good enough to drive. He returns to PT because his proprioception is getting worse. His back pain is coming back. His spinal surgeon said there isn't anything to be done surgically. He was referred to neurology who ordered an EMG and he was told there was not any changes since 2018. There is radiculopathy at L4-5 at least . PMH: TIA 2008, coronary disease, L BBB and PFO, pacer. Prior Treatments and Tests Surgeries, EMG Treatment Goals Patient/Caregiver Goals To work on gait and back pain. PT-OP-C Subjective Start: 12/08/20 16:08 Freq: Status: Active Protocol: Document 12/20/20 08:17 MB (Rec: 12/20/20 09:00 MB [id number]) OP-PT Subjective Patient Comments Patient Comments Pt is a little stiff today. He spent all day yesterday bent over working on a project for the boat. PT-OP-D Balance Start: 12/08/20 16:08 Freq: Status: Active Protocol: Document 12/09/20 07:32 MB (Rec: 12/09/20 14:37 MB [id number]) OP-PT Balance Assessment Sitting Balance Static Sitting Balance Ability Good Dynamic Sitting Balance Ability Good Sitting Balance Comments UE support for sitting when PT checks for clonus ankles Standing Balance Static Standing Balance Ability Good Dynamic Standing Balance Ability Fair Standing Balance Comments Pt can stand statically without AD for postural assessment wearing socks Valdivia Fall Scale Copyright Permission PT-OP-G Mobility & Gait Start: 12/08/20 16:08 Freq: Status: Active Protocol: Document 12/09/20 07:32 MB (Rec: 12/09/20 14:37 MB [id number]) OP Gait Assessment Gait Gait Assistance Required: Independent Distance (Feet) 50 Assistive Devices Assistive Device Straight Cane Orthotic/Prosthetic Devices or Brace: No Gait Deviations General Gait Pattern Ataxic,Decreased Stride Length ,Decreased Feet Clearance,Step -to Gait,Wide Based Gait Factors Limiting Gait Function Factors Limiting Gait Function Abnormal Tonal Influences, Decreased Activity Tolerance, Decreased Strength, Incoordination,Poor Balance Comments Gait Comments Pt gait is ataxic, spinal cord appearing with step-to gait left and then right foot with cane in right hand each time he gets up to start walking and that improves to better step-through after walking about 10 steps. His gait is similar when the cane is in his right hand and without AD. Slow movement and occ left hip buckle, little right toe push off and right ankle remains in rigid neutral position. The bottom of the right shoe has more wear. PT-OP-J Posture/Palpation/Skin Start: 12/08/20 16:08 Freq: Status: Active Protocol: Document 12/09/20 07:32 MB (Rec: 12/09/20 14:37 MB [id number]) Posture Evaluation Comments Posture Comments Pt standing in socks: Rounded shoulders, right scapula and AC joint mildly lower than the left, left lower ribs and spine with some curvature/ posterior prominence, decreased thoracic kyphosis and lumbar lordosis, anterior tilt pelvis, left iliac crest is higher than the right. PT-OP-M Strength Start: 12/08/20 16:08 Freq: Status: Active Protocol: Document 12/09/20 07:32 MB (Rec: 12/09/20 14:37 MB [id number]) Hip Strength Hip Manual Muscle Testing Bilateral Flexion (L2) 4 Good Abduction 4 Good Adduction 4 Good Comments Testing in supine, spine not loaded Knee Strength Knee Manual Muscle Testing Right Flexion (S2) 4 Good Extension (L3) 5 Normal Comments Testing in supine, spine not loaded Left Flexion (S2) 4 Good Extension (L3) 5 Normal Comments Testing in supine, spine not loaded Ankle/Foot Strength Ankle and Foot Manual Muscle Testing Left Dorsiflexion (L4) 5 Normal Inversion 4 Good Eversion (S1) 3+ Fair+ Comments Testing in supine, spine not loaded Some limitations in ankle movement Right Dorsiflexion (L4) 5 Normal Inversion 4 Good Eversion (S1) 4 Good Comments Testing in supine, spine not loaded Some limitations in ankle movement Toe Strength Toe Manual Muscle Testing Left Great Toe Extension 4 Good Right Great Toe Extension 4 Good PT-OP-Q Treatments Start: 12/08/20 16:08 Freq: Status: Active Protocol: Document 12/20/20 08:17 MB (Rec: 12/20/20 09:00 MB [id number]) Cardio Equipment Recumbent Elliptical (Isentropic) Duration (Minutes) 11 Resistance 3-4 Other UEs and LEs Neuro Re-Education Treatment Balance Activities FGA tasks sliding right finger on wall Comments SBA all: More ataxia with horizontal turns Backwards walking is slow and not as ataxic as head turns Vertical head turns with less ataxia than horizontal head turns Forward walking with eyes closed is slower and less ataxic than head turns Tandem walking: is slow and difficult and pt performs pretty well Balance testing in // bars and exercises Comments Pt tends to lock out knees into hyperextension to keep standing balance Romberg EO and EC at least 30 sec wit pt locking knees Performed again with cues to soften knees and mildly more sway with EC Performed with more knee flexion and increased sway EC Practiced for HEP in room in corner with chair in front of him: 60 sec with Romberg EC with knees mini bent and increased sway to the right and no LOB--pt to perform this at home Tandem in corner with chair in front: more trouble with left foot behind and he is able to perform up to a minute with some challenges. Added this to HEP as well Self-Care/Home Management Treatment Education Other Education Car sitting position and computer set-up ergonomic positions, ergonomic handouts and education for lifting, keeping object close to self, prepare before lifting, golfer 's lift, use legs, core tight PT-OP-T Assessment and Plan Start: 12/08/20 16:08 Freq: Status: Active Protocol: Document 12/20/20 08:17 MB (Rec: 12/20/20 09:00 MB [id number]) Physical Therapy Assessment Rehab Potential Rehabilitation Potential Fair Evaluation Complexity Number of Personal Factors/Comorbidities 0 Number of Body Systems Impaired 3 Clinical Presentation at Evaluation Evolving Impairments Impairments Activity Tolerance,Balance, Coordination,Functional Activities,Functional Mobility ,Gait,Pain,Posture,Strength, Transfers Other Impairments Body systems affected include musculoskeletal, neuromuscular , neurological, cardiac. His clinical presentation is evolving. Other Concerns Fall Risk Yes Goals 4 Interpreter Deaf Goal (LTG) Pt will perform progressive HEP including pelvic realignment, LE flexibility, core and LE strengthening, balance and gait exercises to improve balance, gait and pain by 02/08/21. LTG Duration 8 weeks 3 Interpreter Deaf Goal (LTG) Pt will report a 30% improvement in back pain to improve his quality of life by 02/08/21. LTG Duration 8 weeks 2 Interpreter Deaf Goal (LTG) Pt will perform WNLs on Tinetti balance test to decrease fall risk by 02/08/21 . LTG Duration 8 weeks 1 Half-Way Goal (LTG) Pt will gait train at least 1000 feet in 6 minutes with LRAD to improve community ambulation and safety with short hikes by 02/08/21. LTG Duration 8 weeks Assessment Summary Assessment Progressed balance exercises today and pt to start exercises at home. Con't per plan below. Physical Therapy Plan Frequency and Duration Frequency of Treatment 2x/Week Duration of Treatment 8 weeks Plan of Care Start Date 12/09/20 Plan of Care End Date 02/08/21 Therapeutic Interventions Therapeutic Interventions Aquatic Therapy,Balance Training,Canalithic Repositioning,Coordination Training,Gait Training,Home Exercise Program,Joint Mobilizations,Manual Therapy, Neuromuscular Re-education, Patient/Caregiver Education, Self-Care/Home Management,Soft Tissue Mobilization,Taping, Therapeutic Activities, Therapeutic Exercises Modalities Cold Pack/Ice Massage,Hot Packs Next Visit Focus/Plan Next Note Type Treatment Note Next Visit Plan Consider therapy ball, progressive gait and balance exercises--static standing with head turns, LE strengthening in sitting with bands
--- NOTE | 2020-12-22 09:00 | PT.OTN ---
Current Diagnoses Disease of spinal cord, unspecified (12/22/20) Unspecified abnormalities of gait and mobility (12/22/20) Physical Therapy Treatment Note PT-OP-A Visit Information Start: 12/08/20 16:08 Freq: Status: Active Protocol: Document 12/22/20 08:17 MB (Rec: 12/22/20 08:56 MB [id number]) Out-Patient Physical Therapy Visit Information Visit Information Visit Type Treatment Note Visit Note Medicare, 07/11 before KX Visit Start Time 08:17 Visit Stop Time 08:57 Total Visit Minutes 40 Visit Number 5 Precautions Precautions Neurologic gait and high fall risk PT-OP-B Current Condition Start: 12/08/20 16:08 Freq: Status: Active Protocol: Document 12/09/20 07:32 MB (Rec: 12/09/20 08:03 MB [id number]) Current Condition History of Current Condition Onset Date Many years Current Complaints Back pain and trouble with gait History of Current Condition 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 12 years ago, it started affecting his gait. 9 years ago, he had a cervical fusion and laminectomy. He then had B midline sparing laminectomy L4-5 in 2018. He had PT at this clinic and it went well. He has con't with stretching and back exercises. His walking did not get better after the surgery or PT. He had the surgery to help the back pain and it did help. His left leg is slightly weaker. He lives in a ranch style house, has no stairs, uses a straight cane and has walking sticks. His sensation and strength in his feet are good enough to drive. He returns to PT because his proprioception is getting worse. His back pain is coming back. His spinal surgeon said there isn't anything to be done surgically. He was referred to neurology who ordered an EMG and he was told there was not any changes since 2018. There is radiculopathy at L4-5 at least . PMH: TIA 2008, coronary disease, L BBB and PFO, pacer. Prior Treatments and Tests Surgeries, EMG Treatment Goals Patient/Caregiver Goals To work on gait and back pain. PT-OP-C Subjective Start: 12/08/20 16:08 Freq: Status: Active Protocol: Document 12/22/20 08:17 MB (Rec: 12/22/20 08:56 MB [id number]) OP-PT Subjective Patient Comments Patient Comments Pt states that the transition from sit to stand still hurts his back. Doing the balance exercises at home was difficult and good. PT-OP-D Balance Start: 12/08/20 16:08 Freq: Status: Active Protocol: Document 12/09/20 07:32 MB (Rec: 12/09/20 14:37 MB [id number]) OP-PT Balance Assessment Sitting Balance Static Sitting Balance Ability Good Dynamic Sitting Balance Ability Good Sitting Balance Comments UE support for sitting when PT checks for clonus ankles Standing Balance Static Standing Balance Ability Good Dynamic Standing Balance Ability Fair Standing Balance Comments Pt can stand statically without AD for postural assessment wearing socks Valdivia Fall Scale Copyright Permission PT-OP-G Mobility & Gait Start: 12/08/20 16:08 Freq: Status: Active Protocol: Document 12/09/20 07:32 MB (Rec: 12/09/20 14:37 MB [id number]) OP Gait Assessment Gait Gait Assistance Required: Independent Distance (Feet) 50 Assistive Devices Assistive Device Straight Cane Orthotic/Prosthetic Devices or Brace: No Gait Deviations General Gait Pattern Ataxic,Decreased Stride Length ,Decreased Feet Clearance,Step -to Gait,Wide Based Gait Factors Limiting Gait Function Factors Limiting Gait Function Abnormal Tonal Influences, Decreased Activity Tolerance, Decreased Strength, Incoordination,Poor Balance Comments Gait Comments Pt gait is ataxic, spinal cord appearing with step-to gait left and then right foot with cane in right hand each time he gets up to start walking and that improves to better step-through after walking about 10 steps. His gait is similar when the cane is in his right hand and without AD. Slow movement and occ left hip buckle, little right toe push off and right ankle remains in rigid neutral position. The bottom of the right shoe has more wear. PT-OP-J Posture/Palpation/Skin Start: 12/08/20 16:08 Freq: Status: Active Protocol: Document 12/09/20 07:32 MB (Rec: 12/09/20 14:37 MB [id number]) Posture Evaluation Comments Posture Comments Pt standing in socks: Rounded shoulders, right scapula and AC joint mildly lower than the left, left lower ribs and spine with some curvature/ posterior prominence, decreased thoracic kyphosis and lumbar lordosis, anterior tilt pelvis, left iliac crest is higher than the right. PT-OP-M Strength Start: 12/08/20 16:08 Freq: Status: Active Protocol: Document 12/09/20 07:32 MB (Rec: 12/09/20 14:37 MB [id number]) Hip Strength Hip Manual Muscle Testing Bilateral Flexion (L2) 4 Good Abduction 4 Good Adduction 4 Good Comments Testing in supine, spine not loaded Knee Strength Knee Manual Muscle Testing Right Flexion (S2) 4 Good Extension (L3) 5 Normal Comments Testing in supine, spine not loaded Left Flexion (S2) 4 Good Extension (L3) 5 Normal Comments Testing in supine, spine not loaded Ankle/Foot Strength Ankle and Foot Manual Muscle Testing Left Dorsiflexion (L4) 5 Normal Inversion 4 Good Eversion (S1) 3+ Fair+ Comments Testing in supine, spine not loaded Some limitations in ankle movement Right Dorsiflexion (L4) 5 Normal Inversion 4 Good Eversion (S1) 4 Good Comments Testing in supine, spine not loaded Some limitations in ankle movement Toe Strength Toe Manual Muscle Testing Left Great Toe Extension 4 Good Right Great Toe Extension 4 Good PT-OP-Q Treatments Start: 12/08/20 16:08 Freq: Status: Active Protocol: Document 12/22/20 08:17 MB (Rec: 12/22/20 08:56 MB [id number]) Therapeutic Exercises Other Exercises Child's pose Comments Ed pt to walk hands side to side Manual Therapy Treatment Other Other Manual Treatments Pt prone: STM B thoracolumbar paraspinals, QL, intrascapular muscles, glutes/hip rotators and TFL Grade III PA mobs thoracic spinous processes PT-OP-T Assessment and Plan Start: 12/08/20 16:08 Freq: Status: Active Protocol: Document 12/22/20 08:17 MB (Rec: 12/22/20 08:56 MB [id number]) Physical Therapy Assessment Rehab Potential Rehabilitation Potential Fair Evaluation Complexity Number of Personal Factors/Comorbidities 0 Number of Body Systems Impaired 3 Clinical Presentation at Evaluation Evolving Impairments Impairments Activity Tolerance,Balance, Coordination,Functional Activities,Functional Mobility ,Gait,Pain,Posture,Strength, Transfers Other Impairments Body systems affected include musculoskeletal, neuromuscular , neurological, cardiac. His clinical presentation is evolving. Other Concerns Fall Risk Yes Goals 4 Penitentiary Goal (LTG) Pt will perform progressive HEP including pelvic realignment, LE flexibility, core and LE strengthening, balance and gait exercises to improve balance, gait and pain by 02/08/21. LTG Duration 8 weeks 3 Penitentiary Goal (LTG) Pt will report a 30% improvement in back pain to improve his quality of life by 02/08/21. LTG Duration 8 weeks 2 Stock Dealer Goal (LTG) Pt will perform WNLs on Tinetti balance test to decrease fall risk by 02/08/21 . LTG Duration 8 weeks 1 Penitentiary Goal (LTG) Pt will gait train at least 1000 feet in 6 minutes with LRAD to improve community ambulation and safety with short hikes by 02/08/21. LTG Duration 8 weeks Assessment Summary Assessment Initiated manual work today and pt presents with increased tension in B thoracolumbar paraspinals and right greater than left QL. His glute mass is reduced and will consider progressing glute work in bridge position. Added child's pose stretch today. Physical Therapy Plan Frequency and Duration Frequency of Treatment 2x/Week Duration of Treatment 8 weeks Plan of Care Start Date 12/09/20 Plan of Care End Date 02/08/21 Therapeutic Interventions Therapeutic Interventions Aquatic Therapy,Balance Training,Canalithic Repositioning,Coordination Training,Gait Training,Home Exercise Program,Joint Mobilizations,Manual Therapy, Neuromuscular Re-education, Patient/Caregiver Education, Self-Care/Home Management,Soft Tissue Mobilization,Taping, Therapeutic Activities, Therapeutic Exercises Modalities Cold Pack/Ice Massage,Hot Packs Next Visit Focus/Plan Next Note Type Treatment Note Next Visit Plan Ongoing manual work and consider side lying, pect stretch, consider standing stretches, review bridge with band and mini march, standing balance with head turns, LE strengthening in sitting with bands
--- NOTE | 2021-01-02 08:56 | PT.OTN ---
Current Diagnoses Disease of spinal cord, unspecified (01/02/21) Unspecified abnormalities of gait and mobility (01/02/21) Physical Therapy Treatment Note PT-OP-A Visit Information Start: 12/08/20 16:08 Freq: Status: Active Protocol: Document 01/02/21 08:15 MB (Rec: 01/02/21 08:55 MB [id number]) Out-Patient Physical Therapy Visit Information Visit Information Visit Type Treatment Note Visit Note Medicare, 09/10 before KX Visit Start Time 08:15 Visit Stop Time 08:56 Total Visit Minutes 41 Visit Number 6 Precautions Precautions Neurologic gait and high fall risk PT-OP-B Current Condition Start: 12/08/20 16:08 Freq: Status: Active Protocol: Document 12/09/20 07:32 MB (Rec: 12/09/20 08:03 MB [id number]) Current Condition History of Current Condition Onset Date Many years Current Complaints Back pain and trouble with gait History of Current Condition 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 12 years ago, it started affecting his gait. 9 years ago, he had a cervical fusion and laminectomy. He then had B midline sparing laminectomy L4-5 in 2018. He had PT at this clinic and it went well. He has con't with stretching and back exercises. His walking did not get better after the surgery or PT. He had the surgery to help the back pain and it did help. His left leg is slightly weaker. He lives in a ranch style house, has no stairs, uses a straight cane and has walking sticks. His sensation and strength in his feet are good enough to drive. He returns to PT because his proprioception is getting worse. His back pain is coming back. His spinal surgeon said there isn't anything to be done surgically. He was referred to neurology who ordered an EMG and he was told there was not any changes since 2018. There is radiculopathy at L4-5 at least . PMH: TIA 2008, coronary disease, L BBB and PFO, pacer. Prior Treatments and Tests Surgeries, EMG Treatment Goals Patient/Caregiver Goals To work on gait and back pain. PT-OP-C Subjective Start: 12/08/20 16:08 Freq: Status: Active Protocol: Document 01/02/21 08:15 MB (Rec: 01/02/21 08:55 MB [id number]) OP-PT Subjective Patient Comments Patient Comments Manual work didn't make a huge difference. PT-OP-D Balance Start: 12/08/20 16:08 Freq: Status: Active Protocol: Document 12/09/20 07:32 MB (Rec: 12/09/20 14:37 MB [id number]) OP-PT Balance Assessment Sitting Balance Static Sitting Balance Ability Good Dynamic Sitting Balance Ability Good Sitting Balance Comments UE support for sitting when PT checks for clonus ankles Standing Balance Static Standing Balance Ability Good Dynamic Standing Balance Ability Fair Standing Balance Comments Pt can stand statically without AD for postural assessment wearing socks Valdivia Fall Scale Copyright Permission PT-OP-G Mobility & Gait Start: 12/08/20 16:08 Freq: Status: Active Protocol: Document 12/09/20 07:32 MB (Rec: 12/09/20 14:37 MB [id number]) OP Gait Assessment Gait Gait Assistance Required: Independent Distance (Feet) 50 Assistive Devices Assistive Device Straight Cane Orthotic/Prosthetic Devices or Brace: No Gait Deviations General Gait Pattern Ataxic,Decreased Stride Length ,Decreased Feet Clearance,Step -to Gait,Wide Based Gait Factors Limiting Gait Function Factors Limiting Gait Function Abnormal Tonal Influences, Decreased Activity Tolerance, Decreased Strength, Incoordination,Poor Balance Comments Gait Comments Pt gait is ataxic, spinal cord appearing with step-to gait left and then right foot with cane in right hand each time he gets up to start walking and that improves to better step-through after walking about 10 steps. His gait is similar when the cane is in his right hand and without AD. Slow movement and occ left hip buckle, little right toe push off and right ankle remains in rigid neutral position. The bottom of the right shoe has more wear. PT-OP-J Posture/Palpation/Skin Start: 12/08/20 16:08 Freq: Status: Active Protocol: Document 12/09/20 07:32 MB (Rec: 12/09/20 14:37 MB [id number]) Posture Evaluation Comments Posture Comments Pt standing in socks: Rounded shoulders, right scapula and AC joint mildly lower than the left, left lower ribs and spine with some curvature/ posterior prominence, decreased thoracic kyphosis and lumbar lordosis, anterior tilt pelvis, left iliac crest is higher than the right. PT-OP-M Strength Start: 12/08/20 16:08 Freq: Status: Active Protocol: Document 12/09/20 07:32 MB (Rec: 12/09/20 14:37 MB [id number]) Hip Strength Hip Manual Muscle Testing Bilateral Flexion (L2) 4 Good Abduction 4 Good Adduction 4 Good Comments Testing in supine, spine not loaded Knee Strength Knee Manual Muscle Testing Right Flexion (S2) 4 Good Extension (L3) 5 Normal Comments Testing in supine, spine not loaded Left Flexion (S2) 4 Good Extension (L3) 5 Normal Comments Testing in supine, spine not loaded Ankle/Foot Strength Ankle and Foot Manual Muscle Testing Left Dorsiflexion (L4) 5 Normal Inversion 4 Good Eversion (S1) 3+ Fair+ Comments Testing in supine, spine not loaded Some limitations in ankle movement Right Dorsiflexion (L4) 5 Normal Inversion 4 Good Eversion (S1) 4 Good Comments Testing in supine, spine not loaded Some limitations in ankle movement Toe Strength Toe Manual Muscle Testing Left Great Toe Extension 4 Good Right Great Toe Extension 4 Good PT-OP-Q Treatments Start: 12/08/20 16:08 Freq: Status: Active Protocol: Document 01/02/21 08:15 MB (Rec: 01/02/21 08:55 MB [id number]) Therapeutic Exercises Supine Exercises Bridge progression with band Equipment Used Level 2 band around knees Comments Feet shoulder width apart, press out, toes up and press out Standing Exercises Mini wall slide with band around knees Side bilateral Comments Slow count down and up, controlled and constant movement Doorway stretches Side bilateral Comments Pect, hip flexor, QL and lat stretches Neuro Re-Education Treatment Balance Activities Corner balance Comments Romberg WNLs and increased sway with head turns and pt to perform this at home Tandem B to improve ankle strategy and this is challenging today FGA tasks sliding right finger on wall Comments Superv all: Ongoing ataxia with most trouble with horizontal head turns and tandem walking. Increased tension through right knuckle with tandem walking. Backward walking and walking with eyes closed is better, slow PT-OP-T Assessment and Plan Start: 12/08/20 16:08 Freq: Status: Active Protocol: Document 01/02/21 08:15 MB (Rec: 01/02/21 08:55 MB [id number]) Physical Therapy Assessment Rehab Potential Rehabilitation Potential Fair Evaluation Complexity Number of Personal Factors/Comorbidities 0 Number of Body Systems Impaired 3 Clinical Presentation at Evaluation Evolving Impairments Impairments Activity Tolerance,Balance, Coordination,Functional Activities,Functional Mobility ,Gait,Pain,Posture,Strength, Transfers Other Impairments Body systems affected include musculoskeletal, neuromuscular , neurological, cardiac. His clinical presentation is evolving. Other Concerns Fall Risk Yes Goals 4 Penitentiary Goal (LTG) Pt will perform progressive HEP including pelvic realignment, LE flexibility, core and LE strengthening, balance and gait exercises to improve balance, gait and pain by 02/08/21. LTG Duration 8 weeks 3 Penitentiary Goal (LTG) Pt will report a 30% improvement in back pain to improve his quality of life by 02/08/21. LTG Duration 8 weeks 2 Digital Field Service Technician Goal (LTG) Pt will perform WNLs on Tinetti balance test to decrease fall risk by 02/08/21 . LTG Duration 8 weeks 1 Penitentiary Goal (LTG) Pt will gait train at least 1000 feet in 6 minutes with LRAD to improve community ambulation and safety with short hikes by 02/08/21. LTG Duration 8 weeks Assessment Summary Assessment Reviewed plan with pt: will keep 2 appointments at 1x/wk for the next two weeks as we are peaking on what exercises we need to give him for home, manual work was minimally helpful. Physical Therapy Plan Frequency and Duration Frequency of Treatment 2x/Week Duration of Treatment 8 weeks Plan of Care Start Date 12/09/20 Plan of Care End Date 02/08/21 Therapeutic Interventions Therapeutic Interventions Aquatic Therapy,Balance Training,Canalithic Repositioning,Coordination Training,Gait Training,Home Exercise Program,Joint Mobilizations,Manual Therapy, Neuromuscular Re-education, Patient/Caregiver Education, Self-Care/Home Management,Soft Tissue Mobilization,Taping, Therapeutic Activities, Therapeutic Exercises Modalities Cold Pack/Ice Massage,Hot Packs Next Visit Focus/Plan Next Note Type Treatment Note Next Visit Plan Pt to bring in his exercise handouts, LE strengthening in sitting with bands
--- NOTE | 2021-01-09 08:56 | PT.OTN ---
Current Diagnoses Disease of spinal cord, unspecified (01/09/21) Unspecified abnormalities of gait and mobility (01/09/21) Physical Therapy Treatment Note PT-OP-A Visit Information Start: 12/08/20 16:08 Freq: Status: Active Protocol: Document 01/09/21 08:16 MB (Rec: 01/09/21 08:55 MB [id number]) Out-Patient Physical Therapy Visit Information Visit Information Visit Type Treatment Note Visit Note Medicare, 10/10 before KX Visit Start Time 08:16 Visit Stop Time 08:54 Total Visit Minutes 38 Visit Number 7 Precautions Precautions Neurologic gait and high fall risk PT-OP-B Current Condition Start: 12/08/20 16:08 Freq: Status: Active Protocol: Document 12/09/20 07:32 MB (Rec: 12/09/20 08:03 MB [id number]) Current Condition History of Current Condition Onset Date Many years Current Complaints Back pain and trouble with gait History of Current Condition 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 12 years ago, it started affecting his gait. 9 years ago, he had a cervical fusion and laminectomy. He then had B midline sparing laminectomy L4-5 in 2018. He had PT at this clinic and it went well. He has con't with stretching and back exercises. His walking did not get better after the surgery or PT. He had the surgery to help the back pain and it did help. His left leg is slightly weaker. He lives in a ranch style house, has no stairs, uses a straight cane and has walking sticks. His sensation and strength in his feet are good enough to drive. He returns to PT because his proprioception is getting worse. His back pain is coming back. His spinal surgeon said there isn't anything to be done surgically. He was referred to neurology who ordered an EMG and he was told there was not any changes since 2018. There is radiculopathy at L4-5 at least . PMH: TIA 2008, coronary disease, L BBB and PFO, pacer. Prior Treatments and Tests Surgeries, EMG Treatment Goals Patient/Caregiver Goals To work on gait and back pain. PT-OP-C Subjective Start: 12/08/20 16:08 Freq: Status: Active Protocol: Document 01/09/21 08:16 MB (Rec: 01/09/21 08:55 MB [id number]) OP-PT Subjective Patient Comments Patient Comments Pt states that his back felt a lot better over the weekend and he didn't know what that was about. He brings in his exercises to review today. PT-OP-D Balance Start: 12/08/20 16:08 Freq: Status: Active Protocol: Document 12/09/20 07:32 MB (Rec: 12/09/20 14:37 MB [id number]) OP-PT Balance Assessment Sitting Balance Static Sitting Balance Ability Good Dynamic Sitting Balance Ability Good Sitting Balance Comments UE support for sitting when PT checks for clonus ankles Standing Balance Static Standing Balance Ability Good Dynamic Standing Balance Ability Fair Standing Balance Comments Pt can stand statically without AD for postural assessment wearing socks Valdivia Fall Scale Copyright Permission PT-OP-G Mobility & Gait Start: 12/08/20 16:08 Freq: Status: Active Protocol: Document 12/09/20 07:32 MB (Rec: 12/09/20 14:37 MB [id number]) OP Gait Assessment Gait Gait Assistance Required: Independent Distance (Feet) 50 Assistive Devices Assistive Device Straight Cane Orthotic/Prosthetic Devices or Brace: No Gait Deviations General Gait Pattern Ataxic,Decreased Stride Length ,Decreased Feet Clearance,Step -to Gait,Wide Based Gait Factors Limiting Gait Function Factors Limiting Gait Function Abnormal Tonal Influences, Decreased Activity Tolerance, Decreased Strength, Incoordination,Poor Balance Comments Gait Comments Pt gait is ataxic, spinal cord appearing with step-to gait left and then right foot with cane in right hand each time he gets up to start walking and that improves to better step-through after walking about 10 steps. His gait is similar when the cane is in his right hand and without AD. Slow movement and occ left hip buckle, little right toe push off and right ankle remains in rigid neutral position. The bottom of the right shoe has more wear. PT-OP-J Posture/Palpation/Skin Start: 12/08/20 16:08 Freq: Status: Active Protocol: Document 12/09/20 07:32 MB (Rec: 12/09/20 14:37 MB [id number]) Posture Evaluation Comments Posture Comments Pt standing in socks: Rounded shoulders, right scapula and AC joint mildly lower than the left, left lower ribs and spine with some curvature/ posterior prominence, decreased thoracic kyphosis and lumbar lordosis, anterior tilt pelvis, left iliac crest is higher than the right. PT-OP-M Strength Start: 12/08/20 16:08 Freq: Status: Active Protocol: Document 12/09/20 07:32 MB (Rec: 12/09/20 14:37 MB [id number]) Hip Strength Hip Manual Muscle Testing Bilateral Flexion (L2) 4 Good Abduction 4 Good Adduction 4 Good Comments Testing in supine, spine not loaded Knee Strength Knee Manual Muscle Testing Right Flexion (S2) 4 Good Extension (L3) 5 Normal Comments Testing in supine, spine not loaded Left Flexion (S2) 4 Good Extension (L3) 5 Normal Comments Testing in supine, spine not loaded Ankle/Foot Strength Ankle and Foot Manual Muscle Testing Left Dorsiflexion (L4) 5 Normal Inversion 4 Good Eversion (S1) 3+ Fair+ Comments Testing in supine, spine not loaded Some limitations in ankle movement Right Dorsiflexion (L4) 5 Normal Inversion 4 Good Eversion (S1) 4 Good Comments Testing in supine, spine not loaded Some limitations in ankle movement Toe Strength Toe Manual Muscle Testing Left Great Toe Extension 4 Good Right Great Toe Extension 4 Good PT-OP-Q Treatments Start: 12/08/20 16:08 Freq: Status: Active Protocol: Document 01/09/21 08:16 MB (Rec: 01/09/21 08:55 MB [id number]) Therapeutic Exercises Supine Exercises Bridge progression with band Equipment Used Level 2 band around knees Comments Pt pressing out into band today Hook lying clam Side bilateral Comments Glute squeeze first and then slow out and in Core progression Supine Exercise Name Abdominal drawing in, knee rocking, bridge with band, may Comments Did not do HS d/t shoes Abdominal drawing in Comments Performed today Hamstring stretch with AP and bending and straightening knee Side bilateral Comments 20-30 pumps, 1 rep each leg, opposite leg straight Randall stretch Side bilateral Comments Pelvic tilt and tummy tight first, each leg 30 sec Piriformis stretch Side bilateral Comments 30 sec hold each leg today Quick bridges Comments Pt performs quick bridges to warm up before big bridge Pelvic realignment exercises Side bilateral Comments 5 rep, 3 sec hold all exercises Sitting Exercises LAQ with band and AP Side bilateral Resistance Level 2 band Comments 5 reps slowly, alternating, less movement left foot Ankle eversion and DF Side bilateral Resistance Level 3 band Comments 10 reps slowly and together Standing Exercises Mini wall slide with band around knees Side bilateral Resistance Level 2 band around knees Comments Slow count down and up, three reps Doorway stretches Comments Verbally reviewed today and pt is performing as needed at home Other Exercises Child's pose Comments Performed today PT-OP-T Assessment and Plan Start: 12/08/20 16:08 Freq: Status: Active Protocol: Document 01/09/21 08:16 MB (Rec: 01/09/21 08:55 MB [id number]) Physical Therapy Assessment Rehab Potential Rehabilitation Potential Fair Evaluation Complexity Number of Personal Factors/Comorbidities 0 Number of Body Systems Impaired 3 Clinical Presentation at Evaluation Evolving Impairments Impairments Activity Tolerance,Balance, Coordination,Functional Activities,Functional Mobility ,Gait,Pain,Posture,Strength, Transfers Other Impairments Body systems affected include musculoskeletal, neuromuscular , neurological, cardiac. His clinical presentation is evolving. Other Concerns Fall Risk Yes Goals 4 [employer]er [employer] Goal (LTG) Pt will perform progressive HEP including pelvic realignment, LE flexibility, core and LE strengthening, balance and gait exercises to improve balance, gait and pain by 02/08/21. LTG Duration 8 weeks 3 [employer] Goal (LTG) Pt will report a 30% improvement in back pain to improve his quality of life by 02/08/21. LTG Duration 8 weeks 2 Fpc Goal (LTG) Pt will perform WNLs on Tinetti balance test to decrease fall risk by 02/08/21 . LTG Duration 8 weeks 1 Fpc Goal (LTG) Pt will gait train at least 1000 feet in 6 minutes with LRAD to improve community ambulation and safety with short hikes by 02/08/21. LTG Duration 8 weeks Assessment Summary Assessment Reviewed pt's exercises today and he performs most of his exercises well. Condensed core and removed clam as he is doing bridge with band around his knees. Progressed leg strengthening in sitting today . Anticipate d/c next treatment. Physical Therapy Plan Frequency and Duration Frequency of Treatment 2x/Week Duration of Treatment 8 weeks Plan of Care Start Date 12/09/20 Plan of Care End Date 02/08/21 Therapeutic Interventions Therapeutic Interventions Aquatic Therapy,Balance Training,Canalithic Repositioning,Coordination Training,Gait Training,Home Exercise Program,Joint Mobilizations,Manual Therapy, Neuromuscular Re-education, Patient/Caregiver Education, Self-Care/Home Management,Soft Tissue Mobilization,Taping, Therapeutic Activities, Therapeutic Exercises Modalities Cold Pack/Ice Massage,Hot Packs Next Visit Focus/Plan Next Note Type Discharge Summary
--- NOTE | 2021-01-16 08:59 | PT.OTN ---
Current Diagnoses Disease of spinal cord, unspecified (01/16/21) Unspecified abnormalities of gait and mobility (01/16/21) Physical Therapy Treatment Note PT-OP-A Visit Information Start: 12/08/20 16:08 Freq: Status: Active Protocol: Document 01/16/21 08:15 MB (Rec: 01/16/21 08:59 MB [id number]) Out-Patient Physical Therapy Visit Information Visit Information Visit Type Treatment Note Visit Note Medicare, 11/10 before KX Visit Start Time 08:15 Visit Stop Time 08:49 Total Visit Minutes 34 Visit Number 8 Precautions Precautions Neurologic gait and high fall risk PT-OP-B Current Condition Start: 12/08/20 16:08 Freq: Status: Active Protocol: Document 12/09/20 07:32 MB (Rec: 12/09/20 08:03 MB [id number]) Current Condition History of Current Condition Onset Date Many years Current Complaints Back pain and trouble with gait History of Current Condition 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 12 years ago, it started affecting his gait. 9 years ago, he had a cervical fusion and laminectomy. He then had B midline sparing laminectomy L4-5 in 2018. He had PT at this clinic and it went well. He has con't with stretching and back exercises. His walking did not get better after the surgery or PT. He had the surgery to help the back pain and it did help. His left leg is slightly weaker. He lives in a ranch style house, has no stairs, uses a straight cane and has walking sticks. His sensation and strength in his feet are good enough to drive. He returns to PT because his proprioception is getting worse. His back pain is coming back. His spinal surgeon said there isn't anything to be done surgically. He was referred to neurology who ordered an EMG and he was told there was not any changes since 2018. There is radiculopathy at L4-5 at least . PMH: TIA 2008, coronary disease, L BBB and PFO, pacer. Prior Treatments and Tests Surgeries, EMG Treatment Goals Patient/Caregiver Goals To work on gait and back pain. PT-OP-C Subjective Start: 12/08/20 16:08 Freq: Status: Active Protocol: Document 01/16/21 08:15 MB (Rec: 01/16/21 08:59 MB [id number]) OP-PT Subjective Patient Comments Patient Comments Pt states that he had a muscle spasm this morning when he was walking across the living room without his cane and he fell. He did not hurt himself. The sit to stand transition is still really tight. Pt thinks that his exercises are helpful. PT-OP-D Balance Start: 12/08/20 16:08 Freq: Status: Active Protocol: Document 12/09/20 07:32 MB (Rec: 12/09/20 14:37 MB [id number]) OP-PT Balance Assessment Sitting Balance Static Sitting Balance Ability Good Dynamic Sitting Balance Ability Good Sitting Balance Comments UE support for sitting when PT checks for clonus ankles Standing Balance Static Standing Balance Ability Good Dynamic Standing Balance Ability Fair Standing Balance Comments Pt can stand statically without AD for postural assessment wearing socks Valdivia Fall Scale Copyright Permission PT-OP-G Mobility & Gait Start: 12/08/20 16:08 Freq: Status: Active Protocol: Document 12/09/20 07:32 MB (Rec: 12/09/20 14:37 MB [id number]) OP Gait Assessment Gait Gait Assistance Required: Independent Distance (Feet) 50 Assistive Devices Assistive Device Straight Cane Orthotic/Prosthetic Devices or Brace: No Gait Deviations General Gait Pattern Ataxic,Decreased Stride Length ,Decreased Feet Clearance,Step -to Gait,Wide Based Gait Factors Limiting Gait Function Factors Limiting Gait Function Abnormal Tonal Influences, Decreased Activity Tolerance, Decreased Strength, Incoordination,Poor Balance Comments Gait Comments Pt gait is ataxic, spinal cord appearing with step-to gait left and then right foot with cane in right hand each time he gets up to start walking and that improves to better step-through after walking about 10 steps. His gait is similar when the cane is in his right hand and without AD. Slow movement and occ left hip buckle, little right toe push off and right ankle remains in rigid neutral position. The bottom of the right shoe has more wear. PT-OP-J Posture/Palpation/Skin Start: 12/08/20 16:08 Freq: Status: Active Protocol: Document 12/09/20 07:32 MB (Rec: 12/09/20 14:37 MB [id number]) Posture Evaluation Comments Posture Comments Pt standing in socks: Rounded shoulders, right scapula and AC joint mildly lower than the left, left lower ribs and spine with some curvature/ posterior prominence, decreased thoracic kyphosis and lumbar lordosis, anterior tilt pelvis, left iliac crest is higher than the right. PT-OP-M Strength Start: 12/08/20 16:08 Freq: Status: Active Protocol: Document 12/09/20 07:32 MB (Rec: 12/09/20 14:37 MB [id number]) Hip Strength Hip Manual Muscle Testing Bilateral Flexion (L2) 4 Good Abduction 4 Good Adduction 4 Good Comments Testing in supine, spine not loaded Knee Strength Knee Manual Muscle Testing Right Flexion (S2) 4 Good Extension (L3) 5 Normal Comments Testing in supine, spine not loaded Left Flexion (S2) 4 Good Extension (L3) 5 Normal Comments Testing in supine, spine not loaded Ankle/Foot Strength Ankle and Foot Manual Muscle Testing Left Dorsiflexion (L4) 5 Normal Inversion 4 Good Eversion (S1) 3+ Fair+ Comments Testing in supine, spine not loaded Some limitations in ankle movement Right Dorsiflexion (L4) 5 Normal Inversion 4 Good Eversion (S1) 4 Good Comments Testing in supine, spine not loaded Some limitations in ankle movement Toe Strength Toe Manual Muscle Testing Left Great Toe Extension 4 Good Right Great Toe Extension 4 Good PT-OP-Q Treatments Start: 12/08/20 16:08 Freq: Status: Active Protocol: Document 01/16/21 08:15 MB (Rec: 01/16/21 08:59 MB [id number]) Gait Training Gait Activity 6MWT Comments 01/16/21: Pt gait trains 620 feet in 6 minutes with cane in right hand. Gait is neurological in manner with hyperextension left knee greater than right with right foot in functional fused position with decreased heel strike and toe off that seems to correspond with or drive the left knee hyperextension and left hip [place] position. Shoulders are level and decrease movement through thoracic and lumbar spine with gait. No LOB. Pt is mod I. Pt reports intermittent pulling in LB. Gait with cane in left hand is worse with less left hip and knee control, slower gait and gait appears more ataxic. Neuro Re-Education Treatment Balance Activities Tinetti Comments 01/16/21: Tinetti score is 13/ 16 balance score and 10/12 balance assessment, with score 23/28 combined score and indicating moderate risk for falls. Self-Care/Home Management Treatment Education Other Education Wrote out for pt: speak with doctor about muscle relaxor/ spasm med such as oral Baclofen, electrolytes inclduing magnesium (citrate) for muscle health, non- caffeinated fluid intake, consider walking assessment by PT specialist, Radha at [facility] PT-OP-T Assessment and Plan Start: 12/08/20 16:08 Freq: Status: Active Protocol: Document 01/16/21 08:15 MB (Rec: 01/16/21 08:59 MB [id number]) Physical Therapy Assessment Goals 4 Jail Goal (LTG) Pt will perform progressive HEP including pelvic realignment, LE flexibility, core and LE strengthening, balance and gait exercises to improve balance, gait and pain by 02/08/21. 01/16/21: Pt is performing HEP with I. LTG Duration Met 3 Jail Goal (LTG) Pt will report a 30% improvement in back pain to improve his quality of life by 02/08/21. 01/16/21: Pt reports a 30% improvement in back pain since starting PT. Pt con't with intermittent back pain and spasms. LTG Duration Met 2 Music Cataloguer Goal (LTG) Pt will perform WNLs on Tinetti balance test to decrease fall risk by 02/08/21 . 01/16/21: Tinetti score is 13/ 16 balance score and 10/12 balance assessment, with score 23/28 combined score and indicating moderate risk for falls. LTG Duration Partially met 1 Jail Goal (LTG) Pt will gait train at least 1000 feet in 6 minutes with LRAD to improve community ambulation and safety with short hikes by 02/08/21. 01/16/21: Pt gait trains 620 feet in 6 minutes with cane in right hand. Gait is neurological in manner with hyperextension left knee greater than right with right foot in functional fused position with decreased heel strike and toe off that seems to correspond with or drive the left knee hyperextension and left hip [place] position. Shoulders are level and decrease movement through thoracic and lumbar spine with gait. No LOB. Pt is mod I. Pt reports intermittent pulling in LB. Gait with cane in left hand is worse with less left hip and knee control, slower gait and gait appears more ataxic. LTG Duration Partially met Assessment Summary Assessment Pt has progressed as best as possible towards OPPT goals given his spinal stenosis and cord-like/neurological gait. He has had some back muscle spasming that caused him to fall this morning and PT provides education about options for this today and encourages pt to follow-up with provider. He has maximized PT potential at this clinic. He might benefit from PT who specializes in gait and can make orthotics if appropriate to help decrease his left hip and knee degeneration d/t cord-like gait. Will d/c PT.
== END 2021-02-03 14:35 ==
LOC: PHYS 08:15
PROVIDERS: PCP Physician Assistant
DX: R26.9 Unspecified abnormalities of gait and mobility (principal); G95.9 Disease of spinal cord, unspecified
CPT/HCPCS: 97110; 97112; 97116; 97140; 97162; 97535

== ENCOUNTER → 2021-08-31 14:22 | Outpatient (CLI) | payer MEDICARE, SELFPAY ==
--- NOTE | 2021-08-31 | DI.RAD.S_ITS ---
PROCEDURE: XR HIP W PEL IF DONE RT 2V INDICATIONS: Pain in right hip TECHNIQUE: AP pelvis with lateral view(s) of the right hip(s). COMPARISON: None. FINDINGS: Bones: No fractures or dislocations. Pelvic ring appears intact. No suspicious bony lesions. Mild osseous hypertrophy noted in the right hip compatible with mild osteoarthritis. Mild osseous hypertrophy noted in the left hip compatible with mild osteoarthritis. Degenerative disc changes noted in the lower lumbar spine. Soft tissues: The visualized bowel gas pattern is normal. No suspicious soft tissue calcifications. IMPRESSION: Mild right hip osteoarthritis. Dictated by: Roselyn Fritz MD, PhD on 08/31/2021 at 17:01 Approved by: Roselyn Fritz MD, PhD on 08/31/2021 at 17:02
== END ==
PROVIDERS: PCP Physician Assistant; Referring Provider Physician Assistant; Visit Provider Physician Assistant
DX: M16.11 Unilateral primary osteoarthritis, right hip (principal); M25.551 Pain in right hip
CPT/HCPCS: 73502

== ENCOUNTER → 2021-12-07 08:36 | Outpatient (CLI) | payer MEDICARE, SELFPAY ==
[2021-12-07 10:32] LABS: Add Manual Diff / Slide Review NO; Basophils Absolute Auto 100 /uL (0-100); Basophils Percent Auto 1.7 % (0-2); Eosinophils Absolute Auto 400 /uL (0-450); Eosinophils Percent Auto 6.4 % (2-4); Hematocrit 37.8 % (41-53); Hemoglobin 13.3 g/dL (13.5-17.5); Lymphocytes Absolute Auto 1200 /uL (1100-4500); Lymphocytes Percent Auto 20.9 % (25-40); Mean Corpuscular HGB Conc 35.3 % (30-36); Mean Corpuscular Hemoglobin 31.8 PG (26-34); Mean Corpuscular Volume 90.1 fL (80-100); Monocytes Absolute Auto 300 /uL (0-900); Monocytes Percent Auto 5.7 % (3-14); Neutrophils Absolute Auto 3800 /uL (1500-7000); Neutrophils Percent Auto 65.3 % (50-75); Platelet Count 212 X10^3/uL (150-400); Red Blood Cell Count 4.19 X10^6/uL (4.5-5.9); Red Cell Distribution Width 13.9 % (11.6-14.8); White Blood Cell Count 5.8 X10^3/uL (4.5-11.0)
[2021-12-07 11:16] LABS: Alanine Aminotransferase 20 IU/L (<50); Albumin 4.1 g/dL (3.5-5.0); Albumin Globulin Ratio 1.5 (1.0-2.8); Alkaline Phosphatase 80 U/L (38-126); Aspartate Aminotransferase 21 IU/L (17-59); Bilirubin Total 0.5 mg/dL (0.2-1.3); Blood Urea Nitrogen 17 mg/dL (9-20); Calcium 8.9 mg/dL (8.4-10.2); Carbon Dioxide 28 mmol/L (22-32); Chloride 104 mmol/L (98-107); Cholesterol 129 mg/dL (140-199); Estimated Glomerular Filt Rate > 60 mL/min (>60); Globulin 2.8 g/dL (1.7-4.1); Glucose 98 mg/dL (80-110); HDL Cholesterol 45 mg/dL (40-60); HEMOLYSIS < 15 (0-50); LDL Cholesterol Calculated 71 mg/dL (<100); Magnesium 2.1 mg/dL (1.6-2.3); Potassium 4.6 mmol/L (3.4-5.1); Sodium 139 mmol/L (137-145); Total Protein 6.9 g/dL (6.3-8.2); Triglycerides 64 mg/dL (35-150)
[2021-12-07 11:31] LABS: Vitamin D 25 Hydroxy (D3) 29.9 ng/mL (30.0-100.0)
[2021-12-07 11:46] LABS: Thyroid Stimulating Hormone 1.63 uIU/mL (0.47-4.68)
[2021-12-07 13:01] LABS: Creatinine Urine Random 98.2 mg/dL
[2021-12-07 13:08] LABS: Microalbumi Creatinin Ratio Ur 15.2 ug/mg CR (<30); Microalbumin Urine Random 1.5 mg/dL (0-1.6)
[2021-12-08 08:31] LABS: PSA Free % 23.3 % (.); PSA, Total 0.3 ng/mL (0.0-4.0)
== END ==
PROVIDERS: PCP Family Medicine; Referring Provider Internal Medicine Cardiovascular Disease; Visit Provider Internal Medicine Cardiovascular Disease
DX: I10 Essential (primary) hypertension (principal); E56.9 Vitamin deficiency, unspecified; E78.5 Hyperlipidemia, unspecified; I25.10 Atherosclerotic heart disease of native coronary artery without angina pectoris; Z12.5 Encounter for screening for malignant neoplasm of prostate; E55.9 Vitamin D deficiency, unspecified
CPT/HCPCS: 36415; 80053; 80061; 82043; 82306; 82570; 83735; 84153; 84154; 84443; 85025; G0103

== ENCOUNTER → 2022-12-12 09:59 | Outpatient (CLI) | payer MEDICARE, SELFPAY ==
[2022-12-12 11:40] LABS: Alanine Aminotransferase 20 IU/L (<50); Albumin 3.9 g/dL (3.5-5.0); Albumin Globulin Ratio 1.4 (1.0-2.8); Alkaline Phosphatase 79 U/L (38-126); Aspartate Aminotransferase 20 IU/L (17-59); BUN Creatinine Ratio 23.3 (6-22); Bilirubin Total 0.7 mg/dL (0.2-1.3); Blood Urea Nitrogen 20 mg/dL (9-20); Calcium 9.4 mg/dL (8.4-10.2); Carbon Dioxide 29 mmol/L (22-32); Chloride 104 mmol/L (98-107); Cholesterol 133 mg/dL (140-199); Estimated Glomerular Filt Rate > 60 mL/min (>60); Globulin 2.7 g/dL (1.7-4.1); Glucose 92 mg/dL (80-110); HDL Cholesterol 47 mg/dL (40-60); HEMOLYSIS < 15 (0-50); LDL Cholesterol Calculated 73 mg/dL (<100); Potassium 4.7 mmol/L (3.4-5.1); Sodium 139 mmol/L (137-145); Total Protein 6.6 g/dL (6.3-8.2); Triglycerides 65 mg/dL (35-150)
== END ==
PROVIDERS: PCP Family Medicine; Referring Provider Internal Medicine Cardiovascular Disease; Visit Provider Internal Medicine Cardiovascular Disease
DX: E78.5 Hyperlipidemia, unspecified (principal)
CPT/HCPCS: 36415; 80053; 80061

== ENCOUNTER → 2023-02-20 15:01 | Outpatient (CLI) | payer MEDICARE, SELFPAY ==
[2023-02-20 16:47] LABS: Vitamin B12 > 1000 pg/mL (239-931)
== END ==
PROVIDERS: PCP Family Medicine; Referring Provider Family Medicine; Visit Provider Family Medicine
DX: E53.8 Deficiency of other specified B group vitamins (principal)
CPT/HCPCS: 36415; 82607

== ENCOUNTER → 2023-09-10 09:51 | Outpatient (CLI) | payer MEDICARE, SELFPAY ==
[2023-09-10 11:59] LABS: Vitamin B12 839 pg/mL (239-931)
[2023-09-12 00:36] LABS: Zinc 77 ug/dL (44-115)
== END ==
PROVIDERS: PCP Family Medicine; Referring Provider Psychiatry & Neurology Clinical Neurophysiology; Visit Provider Psychiatry & Neurology Clinical Neurophysiology
DX: E53.8 Deficiency of other specified B group vitamins (principal)
CPT/HCPCS: 36415; 82525; 82607; 84630

== ENCOUNTER → 2023-10-29 07:46 | Outpatient (CLI) | payer MEDICARE, SELFPAY | PROVIDERS: PCP Family Medicine; Visit Provider Nurse Practitioner Family | DX: R39.198 Other difficulties with micturition (principal) | CPT/HCPCS: 87077; 87086 ==

== ENCOUNTER → 2023-12-06 14:49 | Outpatient (CLI) | payer MEDICARE, SELFPAY ==
[2023-12-06 17:39] LABS: BUN Creatinine Ratio 22.2 (6-22); Blood Urea Nitrogen 18 mg/dL (9-20); Calcium 9.3 mg/dL (8.4-10.2); Carbon Dioxide 28 mmol/L (22-32); Chloride 102 mmol/L (98-107); Cholesterol 166 mg/dL (140-199); Estimated Glomerular Filt Rate > 60 mL/min (>60); Glucose 80 mg/dL (80-110); HDL Cholesterol 56 mg/dL (40-60); HEMOLYSIS < 15 (0-50); LDL Cholesterol Calculated 90 mg/dL (<100); Potassium 4.3 mmol/L (3.4-5.1); Sodium 136 mmol/L (137-145); Triglycerides 100 mg/dL (35-150)
== END ==
PROVIDERS: PCP Family Medicine; Referring Provider Family Medicine; Visit Provider Family Medicine
DX: I25.10 Atherosclerotic heart disease of native coronary artery without angina pectoris (principal); I10 Essential (primary) hypertension; N39.0 Urinary tract infection, site not specified; Z12.5 Encounter for screening for malignant neoplasm of prostate
CPT/HCPCS: 36415; 80048; 80061

== ENCOUNTER → 2024-06-11 12:08 | Outpatient (CLI) | payer MEDICARE, SELFPAY ==
[2024-06-11 12:27] LABS: Add Manual Diff / Slide Review NO; Basophils Absolute Auto 100 /uL (0-100); Basophils Percent Auto 1.2 % (0-2); Eosinophils Absolute Auto 700 /uL (0-450); Eosinophils Percent Auto 11.5 % (2-4); Hemoglobin 13.7 g/dL (13.5-17.5); Lymphocytes Absolute Auto 1500 /uL (1100-4500); Lymphocytes Percent Auto 24.6 % (25-40); Mean Corpuscular HGB Conc 34.2 % (30-36); Mean Corpuscular Volume 93.6 fL (80-100); Monocytes Absolute Auto 500 /uL (0-900); Monocytes Percent Auto 7.3 % (3-14); Neutrophils Absolute Auto 3400 /uL (1500-7000); Neutrophils Percent Auto 55.4 % (50-75); Platelet Count 222 X10^3/uL (150-400); Red Blood Cell Count 4.27 X10^6/uL (4.5-5.9); Red Cell Distribution Width 14.1 % (11.6-14.8); White Blood Cell Count 6.1 X10^3/uL (4.5-11.0)
[2024-06-11 12:38] LABS: D Dimer 455 ng/ml (<500)
[2024-06-11 12:48] LABS: Alanine Aminotransferase 30 IU/L (<50); Albumin 4.5 g/dL (3.5-5.0); Albumin Globulin Ratio 1.7 (1.0-2.8); Alkaline Phosphatase 90 U/L (38-126); Aspartate Aminotransferase 28 IU/L (17-59); BUN Creatinine Ratio 24.4 (6-22); Bilirubin Total 0.6 mg/dL (0.2-1.3); Blood Urea Nitrogen 22 mg/dL (9-20); Calcium 9.6 mg/dL (8.4-10.2); Carbon Dioxide 31 mmol/L (22-32); Chloride 105 mmol/L (98-107); Estimated Glomerular Filt Rate > 60 mL/min (>60); Globulin 2.7 g/dL (1.7-4.1); Glucose 109 mg/dL (80-110); HEMOLYSIS < 15 (0-50); Potassium 5.2 mmol/L (3.4-5.1); Sodium 145 mmol/L (137-145); Total Protein 7.2 g/dL (6.3-8.2)
== END ==
LOC: LAB 12:10
PROVIDERS: PCP Family Medicine; Referring Provider Family Medicine; Visit Provider Family Medicine
DX: I10 Essential (primary) hypertension (principal); M79.89 Other specified soft tissue disorders; I25.10 Atherosclerotic heart disease of native coronary artery without angina pectoris
CPT/HCPCS: 36415; 80053; 85025; 85379

== ENCOUNTER → 2024-06-20 07:57 | Outpatient (CLI) | payer MEDICARE, SELFPAY ==
--- NOTE | 2024-06-20 07:59 | DI.ECHO.S_ITS ---
[place] [facility] : : [id number] : [place] : : [id number] : : Phone: [phone] Echocardiogram Report + + :Name: DEANDRE RIVERA Study Date: 06/20/2024 Height: 68 in : :[facility] ReadingLocation: Weight: 174 lb : : Gender: Male BSA: 1.9 m2 : :: 1950 Age: 73 yrs BP: 205/113 mmHg: :Reason For Study: LEG SWELLING : :Ordering Physician: SHU, : :HAIM Performed By: Tony Prado : :Referring: HAIM [place] : + + Interpretation Summary The left ventricle is normal in size. The ejection fraction is estimated to be 45-50%. Previous LVEF 60 to 65%. Compared to the prior exam, the left ventricular function is reduced. Diastolic parameters suggest a pseudonormalization pattern, consistent with probable elevated filling pressures. The right ventricle is normal in size and function. Pacemaker leads seen in the right atrium and right ventricle. There is mild to moderate tricuspid regurgitation. Previously mild TR. Compared to the prior echo exam, there has been an increase in TR severity. The right ventricular systolic pressure is estimated to be at least 37 mmHg based on an estimated right atrial pressure of 3 mm Hg. Procedure: A two-dimensional transthoracic echocardiogram with color flow and Doppler was performed. The study quality was technically good. Comparison is made with the echocardiogram of 09/02/2020. The patient has a paced rhythm. Left Ventricle: The left ventricle is normal in size. There is normal left ventricular wall thickness. There is no thrombus. The ejection fraction is estimated to be 45-50%. Compared to the prior exam, the left ventricular function is reduced. There is apical septal wall hypokinesis. Diastolic parameters suggest a pseudonormalization pattern, consistent with probable elevated filling pressures. Right Ventricle: The right ventricle is normal in size and function. There is a catheter in the right ventricle. Atria: The left atrial size is normal. There has been no significant change since the previous study. Right atrial size is normal. There is a catheter/pacemaker lead seen in the right atrium. There is no Doppler evidence for an interatrial shunt. The thickening of interatrial septum suggests lipomatous hypertrophy. Mitral Valve: The mitral valve leaflets appear mildly thickened, but open well. There is trace mitral regurgitation. Aortic Valve: The aortic valve is trileaflet. The aortic valve opens well. No aortic regurgitation is present. Tricuspid Valve: The tricuspid valve is normal. There is mild to moderate tricuspid regurgitation. The right ventricular systolic pressure is estimated to be at least 37 mmHg based on an estimated right atrial pressure of 3 mm Hg. Compared to the prior echo exam, there has been an increase in TR severity. Pulmonic Valve: The pulmonic valve is not well seen, but is grossly normal. There is trace pulmonic regurgitation. Great Vessels: The aortic root is normal size. The dimensions of the ascending aorta are normal. The pulmonary artery is not well visualized, but is probably normal size. The IVC is of normal diameter and collapses greater than 50% with a sniff. This suggests a low right atrial pressure of 3 mm Hg. Pericardium/ Pleura There is no pericardial effusion. There is no pleural effusion. MMode/2D Measurements & Calculations LVIDd: 4.7 cm LVOT diam: 2.0 cm LVIDs: 3.3 cm Ao root diam: 3.2 cm FS: 29.6 % asc Aorta Diam: 3.0 cm EPSS: 0.52 cm IVSd: 1.1 cm LVPWd: 0.97 cm LV pride. diameter/BSA (cm/m^2): 2.5 LV sys. diameter/BSA (cm/m^2): 1.7 LA A2 area: 17.4 cm2 RA long axis: 5.2 cm LA A4 area: 17.3 cm2 RA area: 15.4 cm2 LA length (vol): 5.1 cm RA vol: 38.6 ml LA vol: 50.4 ml RA : 20.1 ml/m2 LA vol index: 26.2 ml/m2 IVC diam: 1.6 cm TAPSE: 3.1 cm Doppler Measurements & Calculations Ao V2 max: 133.5 cm/sec LVOT Max Perez: 114.5 cm/sec Ao V2 mean: 101.6 cm/sec LV V1 max P.2 mmHg Ao max P.1 mmHg LV V1 VTI: 28.1 cm Ao mean P.4 mmHg MILANA(I,D): 2.5 cm2 Ao V2 VTI: 36.0 cm MILANA(V,D): 2.7 cm2 sev ratio: 0.78 MILANA indexed to BSA (cm^2/m^2): 1.3 MV E max perez: 100.4 cm/sec TR max perez: 290.8 cm/sec MV A max perez: 76.4 cm/sec TR max P.8 mmHg MV E/A: 1.3 PA V2 max: 65.9 cm/sec Med Peak E' Perez: 5.4 cm/sec PA V2 mean: 41.7 cm/sec E/E' med: 18.5 PA mean P.83 mmHg Lat Peak E' Perez: 6.8 cm/sec PA pr(Accel): 31.0 mmHg E/E' lat: 14.8 E/e' average: 16.6 MV dec time: 0.18 sec SV(LVOT): 88.5 ml Reading Physician:03:51 PM
== END ==
PROVIDERS: PCP Family Medicine; Referring Provider Family Medicine; Visit Provider Family Medicine
DX: I07.1 Rheumatic tricuspid insufficiency (principal); I25.10 Atherosclerotic heart disease of native coronary artery without angina pectoris; I10 Essential (primary) hypertension; M79.89 Other specified soft tissue disorders
CPT/HCPCS: 93306

== ENCOUNTER → 2024-08-25 12:11 | Outpatient (CLI) | payer MEDICARE, SELFPAY ==
[2024-08-25 13:00] LABS: BUN Creatinine Ratio 21.5 (6-22); Blood Urea Nitrogen 17 mg/dL (9-20); Calcium 9.4 mg/dL (8.4-10.2); Carbon Dioxide 27 mmol/L (22-32); Chloride 100 mmol/L (98-107); Estimated Glomerular Filt Rate > 60 mL/min (>60); Glucose 95 mg/dL (70-99); HEMOLYSIS 20 (0-50); Sodium 137 mmol/L (137-145)
== END ==
PROVIDERS: PCP Family Medicine; Referring Provider Family Medicine; Visit Provider Family Medicine
DX: I10 Essential (primary) hypertension (principal); I25.10 Atherosclerotic heart disease of native coronary artery without angina pectoris; I49.9 Cardiac arrhythmia, unspecified
CPT/HCPCS: 36415; 80048

== ENCOUNTER → 2024-11-24 13:42 | Outpatient (CLI) | payer MEDICARE, SELFPAY ==
--- NOTE | 2024-12-02 17:23 | DI.NM.S_ITS ---
DATE OF SERVICE: 11/24/2024 PHARMACOLOGICAL PERFUSION STUDY INDICATIONS: The patient has history of complete heart block, status post dual-chamber permanent pacemaker, coronary artery calcification with hypertension, hyperlipidemia. On previous echocardiogram, LVEF decreased to 45% to 50%. Perfusion study is being done for CAD diagnosis and risk stratification. RADIOPHARMACEUTICAL: 26.8 mCi technetium-99m Myoview IV was injected at stress and 26.4 millicurie technetium-99m Myoview IV was injected at rest. CARDIAC STRESS: The patient underwent pharmacological perfusion study under the supervision of an attending staff using standard IV Lexiscan as per protocol. The patient remained hemodynamically stable. Baseline rhythm is A-sensed and ventricular-paced rhythm. During stress, no new convincing ischemic changes or arrhythmias. No chest pain. Normal recovery. RAW DATA: There is a significantly increased subdiaphragmatic activity and hot spot involving the inferior border and apex. GATED STUDY: Resting LV ejection fraction 68% and stress LV ejection fraction 71% without any obvious wall motion abnormalities. Resting end- diastolic volume 87 mL. TID ratio 0.98, which is within normal limit. Lung/heart ratio 0.28, which is within normal limit. MYOCARDIAL PERFUSION SCAN: Please note that this patient does not have any stress prone images. Resting supine and stress supine images were compared to each other. There appears to be predominantly fixed, large size, severely decreased perfusion of the entire inferior septum, as well as base to mid inferior wall extending into the inferior apex without any significant reversible ischemia. CONCLUSION: The patient has predominantly fixed inferior septal, inferior apex and base to mid inferior wall defect without any significant reversible ischemia. The patient had a pharmacological perfusion study in August,. At that time, the patient had fixed septal defect with slight improvement on prone imaging. In this study, no prone imaging, however, on raw data there is increased subdiaphragmatic activity and hot spot near the inferior border of the heart and the apex. The patient also has pacemaker and has a ventricular paced rhythm. On gated study stress LV ejection fraction 71% and resting LV ejection fraction 68%, which is preserved. No significant wall motion abnormalities. Hence, inferior septal, inferior apical wall and base to mid inferior wall defect likely due to tissue attenuation artifact as well as some component of pacemaker induced. Normal LV function and wall motion in those segments do not suggest previous transmural myocardial infarction. The patient did not have any chest pain. No significant arrhythmias. Overall, not a high-risk perfusion scan. Correlate clinically. Salvador Solitario - LPN RN/vinicius/AQUILINO doc#: [id number]/job#: [id number] dd: 12/02/2024 17:03:00 dt: 12/02/2024 17:11:00 DICTATING MD/COPIES TO: Tere Myers MD COPIES MNE: STACIA;
== END ==
PROVIDERS: PCP Family Medicine; Referring Provider Family Medicine; Visit Provider Internal Medicine Cardiovascular Disease
DX: I25.10 Atherosclerotic heart disease of native coronary artery without angina pectoris (principal); I51.9 Heart disease, unspecified; I44.2 Atrioventricular block, complete; I10 Essential (primary) hypertension; E78.5 Hyperlipidemia, unspecified; Z95.0 Presence of cardiac pacemaker
CPT/HCPCS: 78452; 93017; A9502; J2785

== ENCOUNTER → 2024-11-27 08:12 | Outpatient (CLI) | payer MEDICARE, SELFPAY ==
[2024-11-27 09:03] LABS: Alanine Aminotransferase 27 IU/L (<50); Albumin 4.2 g/dL (3.5-5.0); Albumin Globulin Ratio 1.6 (1.0-2.8); Alkaline Phosphatase 83 U/L (38-126); Blood Urea Nitrogen 19 mg/dL (9-20); Calcium 9.1 mg/dL (8.4-10.2); Carbon Dioxide 30 mmol/L (22-32); Chloride 102 mmol/L (98-107); Cholesterol 154 mg/dL (140-199); Estimated Glomerular Filt Rate > 60 mL/min (>60); Globulin 2.7 g/dL (1.7-4.1); Glucose 98 mg/dL (70-99); HDL Cholesterol 43 mg/dL (40-60); HEMOLYSIS < 15 (0-50); Potassium 3.9 mmol/L (3.4-5.1); Sodium 138 mmol/L (137-145); Total Protein 6.9 g/dL (6.3-8.2); Triglycerides 115 mg/dL (35-150)
== END ==
PROVIDERS: PCP Family Medicine; Referring Provider Internal Medicine Cardiovascular Disease; Visit Provider Internal Medicine Cardiovascular Disease
DX: E78.5 Hyperlipidemia, unspecified (principal)
CPT/HCPCS: 36415; 80053; 80061

== ENCOUNTER → 2025-02-04 08:18 | Outpatient (CLI) | payer MEDICARE, SELFPAY ==
[2025-02-04 10:05] LABS: Cholesterol 129 mg/dL (140-199); HDL Cholesterol 48 mg/dL (40-60); Triglycerides 95 mg/dL (35-150)
== END ==
PROVIDERS: PCP Family Medicine; Referring Provider Internal Medicine Cardiovascular Disease; Visit Provider Internal Medicine Cardiovascular Disease
DX: E78.5 Hyperlipidemia, unspecified (principal)
CPT/HCPCS: 36415; 80061